=== PATIENT | female | born 1990 | race Caucasian/White ===

== ENCOUNTER 2019-10-25 12:12 | Emergency (ER) | payer OTHER, SELFPAY ==
[2019-10-25 12:26] VITALS: BP 131/99; PULSE 103; RESP 18; TEMP 36.5; O2SAT 98
--- NOTE | 2019-10-25 12:35 | ED.FEMALEGU ---
HPI - Female Genitourinary General Chief complaint: Urogenital-Female Stated complaint: uti Time Seen by Provider: 10/25/19 12:35 Source: patient Limitations: no limitations History of Present Illness HPI Narrative: Floridalma Stapleton is a 29 yo female with a hx of infertility, uti, renal stones, who comes to express care with infertility. Dysuria x 24 hours Related Data Home Medications Medication Instructions Recorded Confirmed metformin mg 10/25/19 Allergies Allergy/AdvReac Type Severity Reaction Status Date / Time No Known Allergies Allergy Unknown Verified 05/25/16 19:02 Review of Systems Review of Systems: Narrative: CONSTITUTIONAL: Denies fever, chills, sweats. EYES: Denies visual changes, redness, discharge. ENT: Denies rhinorrhea, congestion, sore throat, otalgia. CARDIOVASCULAR: Denies chest pain, palpitations, edema. RESPIRATORY: Denies dyspnea, wheezing, cough GASTROINTESTINAL: Denies abdominal pain, nausea, vomiting, diarrhea. GENITOURINARY: Has dysuria, no hematuria, no abnormal discharge SKIN: Denies rash or itching. NEUROLOGIC: Denies numbness, or focal weakness. PSYCHIATRIC: Denies anxiety or depression. [facility] Family History Family History Other No active medical problems Social History Social History Smoking status: Never smoker Alcohol intake: current Comments At time of signature, I agree with nursing past medical, surgical, social and family history. There is no relevant family history pertinent to the presenting complaint. Exam Narrative: Exam Narrative: GENERAL: This is a well-nourished, well-developed patient, in mild distress. HEAD: normocephalic, atraumatic. EYES: Sclera clear/white. Vision is grossly intact. EARS: External ears normal, . Hearing grossly intact. NOSE: External nose normal with nasal discharge, nares without redness, has rhinorrhea. THROAT: Mucous membranes moist, NECK: Neck supple, non-tender CARDIOVASCULAR: Regular rate and rhythm without murmurs, gallops, or rubs. RESPIRATORY: Clear to auscultation. Breath sounds equal bilaterally. No wheezes, rales, or rhonchi. Occ dry cough GASTROINTESTINAL: Abdomen soft, mild suprapubic tenderness SKIN: warm, intact with no suspicious lesions or rash, good texture and turgor. NEURO: awake, alert, and oriented to person, place and time. There were no obvious focal neurologic abnormalities. Steady gait EXTREMITIES: Normal range of motion. BACK: Nontender without deformity Course Course Emergency Course: leuk 1+ in urine given keflex, pyridium Vital Signs Vital signs: Vital Signs Temperature 97.7 F 10/25/19 12:26 Pulse Rate 103 H 10/25/19 12:26 Respiratory Rate 18 10/25/19 12:26 Blood Pressure 131/99 H 10/25/19 12:26 Pulse Oximetry 98 10/25/19 12:26 Temperature 97.7 F 10/25/19 12:26 Pulse Rate 103 H 10/25/19 12:26 Respiratory Rate 18 10/25/19 12:26 Blood Pressure 131/99 H 10/25/19 12:26 Pulse Oximetry 98 10/25/19 12:26 MDM - Female Genitourinary Differential Diagnosis Differential diagnosis: Likely urinary tract infection, cystitis and other Lab Data Labs: Urine Glucose Negative Reference Range: Negative Urine Bilirubin Negative Reference Range: Negative Urine Ketone Negative Reference Range: Negative Urine Specific [place] 1.030 Reference Range:1.001-1.035 Urine Blood Trace Reference Range: Negative * * Urine pH 5.5 Reference Range: 5.0-9.0 Urine Protein Negative Reference Range: Negative Urine Urobilinogen 0.2 Reference Range: 0.2-1.0 Urine Nitrate Negative Reference Range: Negative
== END 2019-10-25 12:58 | disposition home or self-care (01) ==
PROVIDERS: Emergency Provider Nurse Practitioner
DX: R30.0 Dysuria (principal)
CPT/HCPCS: 81003; 87086; 87088; 99213; G0463

== ENCOUNTER 2020-03-20 07:41 | Outpatient (CLI) | payer OTHER, SELFPAY ==
--- NOTE | ~2020-03-20 | CT_ITS ---
EXAMINATION: CT abdomen pelvis wo con EXAM DATE: 03/20/2020 08:09 INDICATION: History of kidney stones. TECHNIQUE: Spiral CT of the abdomen and pelvis was performed without contrast. Axial, coronal and sag ittal images were reviewed. The dose-length product (DLP) for this examination was 236.75 mGy-cm. T he exposure was tailored according to patient size (auto mA exposure control), and iterative reconstr uction (ASIR) was used as additional dose reduction technique. Comparison is made to prior examinatio n from 05/25/2016. FINDINGS: Fluid in the right renal pelvis measures 25 Hounsfield units, proteinaceous, and in the zenaida dder 17 Hounsfield units. There is no nephrolithiasis or hydronephrosis. The uterus and ovaries are unremarkable, no adnexal mass. The liver, spleen, adrenal glands and pancreas are unremarkable. Ga llbladder is unremarkable. No biliary obstruction. There is no retroperitoneal or pelvic lymphadeno cathi. There is small umbilical fat-containing hernia. The appendix is normal. The stomach and small bowel are unremarkable. There is expected amount of c olonic stool. No free intraperitoneal gas. The heart is normal in size. There are no pericardial or pleural effusions. The lung bases are unremarkable. 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 IMPRESSION: 1. Some proteinaceous right renal pelvic and bladder fluid. 2. Previously seen nephrolithiasis no longer present. 3. Small umbilical hernia. 4. T9 segmentation anomaly. Reviewed, dictated and finalized at location A.
== END 2020-03-20 07:42 | disposition home or self-care (01) ==
PROVIDERS: Visit Provider Urology
DX: Z87.442 Personal history of urinary calculi (principal); K42.9 Umbilical hernia without obstruction or gangrene; Q76.49 Other congenital malformations of spine, not associated with scoliosis
CPT/HCPCS: 74176

== ENCOUNTER 2020-03-31 06:49 | Outpatient (CLI) | payer OTHER, SELFPAY ==
--- NOTE | ~2020-03-31 | CT_ITS ---
EXAMINATION: CT abdomen pelvis wo/w con DATE: 03/31/2020 07:26 INDICATION: Dysuria TECHNIQUE: Computed tomography (CT) of the abdomen and pelvis was performed without intravenous contr ast. CT of the abdomen and pelvis was then performed with a total of 130 mL Omnipaque 350 intravenous contrast using a double-bolus technique for simultaneous opacification of the renal parenchyma and r enal collecting system. The dose-length product (DLP) was 1550.71 mGy-cm. Automated exposure control and iterative reconstruction technique were employed. COMPARISON: 03/20/2020, 05/25/2016 FINDINGS: Minimal dependent atelectasis is present in the lung bases. The heart size is normal. A chr onic low-attenuation lesion of the right hepatic lobe measuring 1.3 cm is stable, likely a hemangioma or focal nodular hyperplasia. The spleen, pancreas, gallbladder, and adrenal glands are normal. No s uspicious renal or urothelial lesion is identified. No urinary tract calculi are present. There is ch ronic mild right hydronephrosis with possible UPJ/proximal ureteral stricture. No pathologically enla rged abdominal or pelvic lymph nodes are identified. There is no free intraperitoneal gas or evidence of bowel obstruction. The appendix is normal. There are cysts of the ovaries. A moderate volume of c olonic stool is present. A T9 vertebral body anomaly is again noted. IMPRESSION: 1. Mild right hydroureteronephrosis with possible UPJ/proximal ureteral stricture. No suspicious kavya l or urothelial lesion identified. Reviewed, dictated and finalized at location B. IMPRESSION: 1. Mild right hydroureteronephrosis with possible UPJ/proximal ureteral strictu re. No suspicious renal or urothelial lesion identified.
== END 2020-03-31 06:50 | disposition home or self-care (01) ==
LOC: ANHIMG 06:51
PROVIDERS: Visit Provider Urology
DX: R30.0 Dysuria (principal)
CPT/HCPCS: 74178; Q9967

== ENCOUNTER 2020-04-10 12:31 | Outpatient (CLI) | payer OTHER, SELFPAY ==
--- NOTE | ~2020-04-10 | NM_ITS ---
EXAMINATION: WAN magallanes renal scan DATE: 04/10/2020 14:27 INDICATION: Hydronephrosis TECHNIQUE: 7.7 mCi Tc-99m MAG3 was administered IV. 40 mg furosemide was administered IV immediately afterward. The patient was scanned in the supine position. A posterior abdominal radionuclide angiog jean was obtained. A subsequent time course of static images of the kidneys, ureters, and bladder was obtained. COMPARISON: CT dated dated 03/31/2020 FINDINGS: The posterior abdominal radionuclide angiogram and sequential static images show normal size, positio n, and morphology of the kidneys. Peak renal parenchymal uptake was 3.5 min in left kidney and 3.5 mi n in right kidney (normal peak 3-5 minutes). The relative early renal uptake was 50% on the right an d 50% on the left (<40% is abnormal). No abnormalities of the ureters or bladder are seen. T1/2 for clearance of activity from the left kidney and proximal collecting system was 6 minutes. T1/2 for clearance of activity from the right kidney and proximal collecting system was 13 minutes. Notes on interpretation: T1/2 <10 minutes is normal, 10-15 minutes is low grade obstruction of questi onable clinical significance, 15-20 minutes is partial obstruction that is likely clinically signific ant, >20 minutes is high grade obstruction. Note that false positives may be seen with supine positio allison, dehydration, severely dilated nonobstructed kidney, atonic collecting system, poor renal functi on, and chronic furosemide use. IMPRESSION: 1. Symmetric kidney function. 2. Mildly delayed contrast clearance from the right kidney consistent with low-grade obstruction of questionable clinical significance. Reviewed, dictated and finalized at location A. IMPRESSION: 1. Symmetric kidney function. 2. Mildly delayed contrast clearance from the right kidney consistent with low -grade obstruction of questionable clinical significance.
== END 2020-04-10 12:32 | disposition home or self-care (01) ==
PROVIDERS: Visit Provider Urology
DX: N13.30 Unspecified hydronephrosis (principal)
CPT/HCPCS: 78708; A9562; J1940

== ENCOUNTER 2020-05-12 11:29 | Outpatient (CLI) | payer OTHER, SELFPAY ==
--- NOTE | ~2020-05-12 | XR_ITS ---
EXAMINATION: XR hysterosalpingogram INDICATION: Infertility TECHNIQUE: Hysterosalpingogram was performed by Dr. Rasta Mckeon MD with fluoroscopic guidance. I was present to obtain fluoroscopic images. Fluoroscopy exposure time was 0.3 minutes. The DAP for t his procedure was 2.634 Gycm2. FINDINGS: Parts Identifier radiograph demonstrates an unremarkable pelvis. Fluoroscopic images demonstrate a no rmal appearing endometrial cavity which has been cannulated. Upon injection of contrast, both fallop emmie tubes opacify and are normal in appearance. There is free spillage bilaterally. Uterus is withou t evidence of synechia. IMPRESSION: Patent fallopian tubes. Reviewed, dictated and finalized at location A. IMPRESSION: Patent fallopian tubes.
== END 2020-05-12 11:30 | disposition home or self-care (01) ==
PROVIDERS: PCP Student in an Organized Health Care Education/Training Program; Visit Provider Student in an Organized Health Care Education/Training Program
DX: N97.9 Female infertility, unspecified (principal)
CPT/HCPCS: 58340; 74740

== ENCOUNTER 2021-07-22 10:35 | Emergency (ER) | payer OTHER, SELFPAY ==
[2021-07-22 11:23] VITALS: BP 120/80; PULSE 83; RESP 16; TEMP 36.3; O2SAT 99
--- NOTE | 2021-07-22 12:39 | ED.BACK ---
HPI - Back Pain/Injury General Chief Complaint: Back Pain/Injury Stated Complaint: back pain Time Seen by Provider: 07/22/21 12:35 Source: patient and RN notes reviewed Mode of arrival: ambulatory Limitations: no limitations History of Present Illness HPI Narrative: 31-year-old female presents concern for left flank pain that started approximately 6 days ago. Reports his urinary tract infection and kidney stone. She reports the symptoms are similar to her urinary tract action and not similar to her kidney stones.. She reports fatigue and decreased appetite. She denies any trauma or injury to the back. Reports pain is constant and throbbing, does not come and go and is not made worse by certain movements or positions. Reports taking anti-inflammatories without relief. She denies nausea, vomiting, abdominal pain, fever. MD elicited complaint: back pain Related Data Allergies Allergy/AdvReac Type Severity Reaction Status Date / Time No Known Allergies Allergy Unknown Verified 07/22/21 12:13 Review of Systems Review of Systems: CONSTITUTIONAL: Denies malaise, chills, sweats, or fever. CARDIOVASCULAR: Denies chest pain, palpitations, or edema. RESPIRATORY: Denies cough or dyspnea. GASTROINTESTINAL: Denies abdominal pain, nausea, vomiting, diarrhea, bloody, or mucous stools. Reports decreased appetite GENITOURINARY: Denies dysuria or hematuria. Reports right flank pain SKIN: Denies rash or itching. MUSCULOSKELETAL: Denies generalized back pain, myalgia. NEUROLOGIC: Denies headache. All systems reviewed & are unremarkable except as noted in HPI and below PMFSH Family History Family History Other No active medical problems Social History Social History Smoking status: Never smoker Alcohol intake: current Comments At time of signature, agree with nursing past medical, surgical, social and family history. There is no relevant family history pertinent to the presenting complaint Exam Narrative: GENERAL: Well-appearing, well-nourished, and in no acute distress. HEAD: Normocephalic, atraumatic. EYES: PERRLA and EOMI. NECK: Supple. No lymphadenopathy. CHEST: Clear to auscultation. No respiratory distress. HEART: Regular rate and rhythm. Distal pulses palpable and equal, cap refill <3 seconds ABDOMEN: Soft, nontender, nondistended, normal active bowel sounds, no palpable or pulsatile masses. No CVA tenderness MUSCULOSKELETAL: Normal range of motion and strength in all extremities; 5/5 strength with hip flexion and extension, dorsiflexion and extension, knee flexion and extension, plantar flexion and extension. Normal sensation in dermatomal distributions with sensitivity to light touch and pain. No midline back tenderness to palpation. No paraspinal tenderness. Transfers from lying to sitting to standing. SKIN: Warm, dry, no rash. No ecchymosis, erythema, open wounds to back. NEURO: No focal deficits. Alert and oriented x3. Reflexes intact. Normal gait. PSYCH: Normal mood and affect Course Course Emergency Course: Patient is aware of diagnosis, understands and agrees to treatment plan. Anticipatory guidance given. Patient agrees to follow-up as directed and is aware of reasons to seek care at the emergency department. Portions of this record may have been created with voice recognition software Vital Signs Vital signs: Vital Signs Temperature 97.4 F L 07/22/21 11:23 Pulse Rate 83 07/22/21 11:23 Respiratory Rate 16 07/22/21 11:23 Blood Pressure 120/80 07/22/21 11:23 Pulse Oximetry 99 07/22/21 11:23 Temperature 97.4 F L 07/22/21 11:23 Pulse Rate 83 07/22/21 11:23 Respiratory Rate 16 07/22/21 11:23 Blood Pressure 120/80 07/22/21 11:23 Pulse Oximetry 99 07/22/21 11:23 Reviewed. MDM - Back Pain/Injury MDM Narrative Medical decision making narrative: No risk factors or find
== END 2021-07-22 12:55 | disposition home or self-care (01) ==
PROVIDERS: Emergency Provider Nurse Practitioner
DX: M54.9 Dorsalgia, unspecified (principal); R10.9 Unspecified abdominal pain
CPT/HCPCS: 81003; 87086; 99213; G0463

== ENCOUNTER 2021-08-19 14:33 | Emergency (ER) | payer OTHER, SELFPAY ==
--- NOTE | 2021-08-19 14:37 | ED.URI ---
HPI - URI/Sore Throat General Chief Complaint: Upper Respiratory Infection Stated Complaint: Sinus Infection Time Seen by Provider: 08/19/21 14:40 Source: patient, family, RN notes reviewed and old records reviewed Mode of arrival: ambulatory Limitations: no limitations History of Present Illness HPI Narrative: 31-year-old female presents to the [facility] with complaints of a sinus infection for the last 2 weeks. States she has left-sided sinus pressure both maxillary and frontal that keeps getting worse. Fullness in her ears. Denies fevers. Has tried a home COVID test which she reports is negative Related Data Allergies Allergy/AdvReac Type Severity Reaction Status Date / Time No Known Allergies Allergy Unknown Verified 07/22/21 12:13 Review of Systems Review of Systems: All systems reviewed & are unremarkable except as noted in HPI and below Constitutional: Constitutional: Reports no additional constitutional complaints, Denies chills, Denies fever(s) and Denies headache(s) Eyes: Eyes: Reports no additional eye complaints ENT: Reports as per HPI, Denies vertigo, Denies dizziness, Denies headache(s), Reports nasal congestion and Denies sore throat Comments: Bilateral ear pain Cardiovascular: Cardiovascular: Reports no additional cardiovascular complaints, Denies chest pain, Denies syncope, Denies rapid heart rate and Denies dyspnea Respiratory: Respiratory: Reports no additional respiratory complaints, Denies cough, Denies dyspnea and Denies wheezing Gastrointestinal: Gastrointestinal: Reports no additional gastrointestinal complaints, Denies abdominal pain, Denies diarrhea, Denies nausea and Denies vomiting Musculoskeletal: Musculoskeletal: Reports no additional musculoskeletal complaints and Denies numbness Integumentary/Breasts: Skin/Breast: Reports system reviewed and no additional complaints, except as docu Neurologic: Reports system reviewed and no additional complaints, except as documented, Denies vertigo, Denies dizziness, Denies syncope, Denies headache(s), Denies focal weakness and Denies numbness Psychiatric: Psychiatric: Reports no additional psychiatric complaints Allergic/Immunologic: Allergic/Immunologic: Reports no additional allergic/immunologic complaints and Denies wheezing PMF Family History Family History Other No active medical problems Social History Social History Smoking status: Never smoker Alcohol intake: current Comments At the time of my signature, I reviewed and agree with the nursing past medical, surgical, social, and family history. There is no relevant family history pertinent to the patient complaint. Exam Const: General: cooperative, healthy appearing, no acute distress, well developed and alert Nutritional Appearance: well nourished Orientation/consciousness: patient oriented x3 Limitations: no limitations HENMT: Head: normal to inspection Ears: external ears normal, EAC's normal and TM abnormal with fluid behind the TM bilateral; with no loss of landmarks General nose exam: Normal external nose present and Abnormal mucous membranes and turbinates present boggy on the left and erythematous on the left Face and sinus: normal facial exam Mouth: Yes Normal oral and palatal mucosa present Throat: posterior oropharynx normal, tonsils normal and uvula midline Eyes: Conjunctivae: conjunctivae normal Pupils: Equal, round and reactive pupils present Neck: Neck: normal visual inspection, no lymphadenopathy and no meningeal signs Chest: Chest palpation & inspection: normal inspection of the chest Resp: Effort & Inspection: normal respiratory effort and no use of accessory muscles Auscultation: clear to auscultation bilaterally, no crackles, no rales, no rhonchi and no wheezes Cardio: Rate: regular rate Rhythm: regular rhythm : General: Yes no CVA tenderness Back/Spine/
[2021-08-19 14:44] VITALS: BP 127/73; PULSE 81; RESP 20; TEMP 36.7; O2SAT 100
== END 2021-08-19 14:56 | disposition home or self-care (01) ==
PROVIDERS: Emergency Provider Nurse Practitioner
DX: J01.40 Acute pansinusitis, unspecified (principal)
CPT/HCPCS: 99213; G0463

== ENCOUNTER 2022-05-22 09:44 | Emergency (ER) | payer OTHER, SELFPAY ==
--- NOTE | ~2022-05-22 | CT_ITS ---
EXAMINATION: CT abdomen pelvis wo con DATE: 05/22/2022 12:09 INDICATION: Left flank pain TECHNIQUE: Computed tomography (CT) of the abdomen and pelvis was performed without intravenous contr ast. The dose-length product was 311.42 mGy-cm. . Automated exposure control and iterative reconstruc tion technique were employed. COMPARISON: CT dated 03/31/2020. FINDINGS: Lung bases are unremarkable. Heart size normal. No significant pleural or pericardial effus ion. No significant vascular abnormality. No lymphadenopathy. The liver, spleen, pancreas, adrenal gl ands and kidneys are unremarkable. Gallbladder is present. Normal appendix. No renal/ureteral stones or significant hydronephrosis. Gallbladder is present. Nonobstructive bowel gas pattern. Small fat-co ntaining umbilical hernia. No free air or free fluid. There is a segmentation anomaly at T9. IMPRESSION: 1. No acute abdominal abnormality. Reviewed, dictated and finalized at location A.
[2022-05-22 09:58] VITALS: BP 132/73; PULSE 87; RESP 20; TEMP 36.6; O2SAT 99
--- NOTE | 2022-05-22 11:47 | ED.ABDPAIN ---
HPI - Abdominal Pain General Chief Complaint: Abdominal Pain Stated Complaint: flank pain Time Seen by Provider: 05/22/22 11:00 History of Present Illness HPI narrative: 32-year-old female history of kidney stones presents to the emergency room for evaluation of sudden onset of left flank pain. Patient states the pain radiates into her pelvic area. Denies any dysuria or urinary retention. Denies diarrhea or constipation. Denies fever. States is unable to find a comfortable position and has been nauseated. States she took ibuprofen 2 and half hours ago with no relief of symptoms Related Data Allergies Allergy/AdvReac Type Severity Reaction Status Date / Time No Known Allergies Allergy Unknown Verified 07/22/21 12:13 Review of Systems Review of Systems: CONSTITUTIONAL: Denies fever, chills, or sweats. EYES: Denies visual changes, redness, or discharge. ENT: Denies rhinorrhea, congestion, sore throat, or otalgia. CARDIOVASCULAR: Denies chest pain, palpitations, or edema. RESPIRATORY: Denies cough or dyspnea. GASTROINTESTINAL: Right flank pain GENITOURINARY: Denies dysuria or hematuria. SKIN: Denies rash or itching. MUSCULOSKELETAL: Denies back pain, joint pain, or myalgia. NEUROLOGIC: Denies headache, numbness, dizziness, or weakness. PSYCHIATRIC: Denies anxiety or depression. [facility] Family History Family History Other No active medical problems Social History Social History Smoking status: Never smoker Alcohol intake: current Exam Narrative: GENERAL: Well-appearing, well-nourished, no physical limitations, and in no acute distress. HEAD: Normocephalic, atraumatic. EYES: Conjunctivae normal, PERRLA and EOMI. CHEST: Clear to auscultation. No respiratory distress. No wheezes rales or rhonchi. No tenderness. HEART: Regular rate and rhythm. No murmur heard. Normal peripheral pulses. ABDOMEN: Soft, nontender, nondistended, normal active bowel sounds. BACK: Right CVA tenderness EXTREMITIES: Normal range of motion. No edema. No clubbing or cyanosis SKIN: Warm, dry, no rash. No noted wounds NEURO: No focal deficits. Alert and oriented x3. CRYS. CN's II-XI intact bilaterally, normal gait PSYCH: Cooperative. Normal mood and affect. Course Vital Signs Vital signs: Vital Signs Temperature 36.6 C 05/22/22 09:58 Pulse Rate 87 05/22/22 09:58 Respiratory Rate 20 05/22/22 09:58 Blood Pressure 132/73 05/22/22 09:58 Pulse Oximetry 99 05/22/22 09:58 Oxygen Delivery Room Air 05/22/22 09:58 Temperature 36.6 C 05/22/22 09:58 Pulse Rate 87 05/22/22 09:58 Respiratory Rate 20 05/22/22 09:58 Blood Pressure 132/73 05/22/22 09:58 Pulse Oximetry 99 05/22/22 09:58 Oxygen Delivery Room Air 05/22/22 09:58 MDM - Abdominal Pain MDM Narrative Medical decision making narrative: 32-year-old female presented to the emergency room for evaluation of flank pain. Lab work and UA were unremarkable. CT scan shows a large amount of stone. No signs of kidney stones. Patient likely experiencing constipation. Will encourage patient to take daily MiraLAX and push fluids. Lab Data Result diagrams: 05/22/22 11:56 05/22/22 11:56 Labs: Lab Results 05/22/22 05/22/22 05/22/22 Range/Units 11:56 11:56 11:56 WBC 5.1 (4.5-10.0) K/mm3 RBC 4.73 (4.2-5.4) M/mm3 Hgb 14.2 (12.0-15.0) g/dL Hct 41.7 (37.0-47.0) % MCV 88.2 (80-100) fl MCH 30.0 (26-34) pg MCHC 34.1 (32-36) g/dl RDW 12.6 (11.5-14.5) % Plt Count 305 (150-375) k/mm3 MPV 9.6 (7.4-10.4) fl Immature Gran % (Auto) 0.4 (0-0.5) % Neut % (Auto) 62.8 (45.5-73.1) % Lymph % (Auto) 29.9 (18.3-44.2) % Christian % (Auto) 5.1 (2.6-8.5) % Eos % (Auto) 1.2 (0-4.4) % Baso % (Auto) 0.6 (0.2-1.2) % Lymph # (Auto) 1.53 (0.9-3.2) K/mm3 Christian
[2022-05-22 12:12] LABS: Basophils Percent Auto 0.6 % (0.2-1.2); Eosinophils Absolute Auto 0.1 K/mm3 (0-0.3); Eosinophils Percent Auto 1.2 % (0-4.4); Hematocrit 41.7 % (37.0-47.0); Hemoglobin 14.2 g/dL (12.0-15.0); Immature Granulocyte Absolute 0.02 K/mm3 (0.00-0.031); Immature Granulocyte Percent A 0.4 % (0-0.5); Lymphocytes Absolute Auto 1.53 K/mm3 (0.9-3.2); Lymphocytes Percent Auto 29.9 % (18.3-44.2); Mean Corpuscular HGB Conc 34.1 g/dl (32-36); Mean Corpuscular Volume 88.2 fl (80-100); Mean Platelet Volume 9.6 fl (7.4-10.4); Monocytes Absolute Auto 0.3 K/mm3 (0.1-0.6); Monocytes Percent Auto 5.1 % (2.6-8.5); Neutrophils Absolute Auto 3.2 K/mm3 (1.3-6.7); Neutrophils Percent Auto 62.8 % (45.5-73.1); Platelet Count Result 305 k/mm3 (150-375); Red Blood Count 4.73 M/mm3 (4.2-5.4); Red Cell Distribution Width 12.6 % (11.5-14.5); White Blood Count 5.1 K/mm3 (4.5-10.0)
[2022-05-22] MEDS: SODIUM CHLORIDE 0.9% IV 1,000 ML 999 ML IV CONT (12:19)
[2022-05-22 12:21] LABS: Alanine Aminotransferase 38 U/L (6-35); Albumin Level 4.8 g/dL (3.5-5.1); Alkaline Phosphatase 99 U/L (38-126); Anion Gap 9 mmol/L (8-16); Appearance Urine Clear (Clear); Aspartate Amino Transferase 27 U/L (14-36); Bilirubin Urine Negative (Negative); Bilirubin,Total 0.7 mg/dL (0.2-1.3); Blood Urea Nitrogen 10 mg/dL (7-17); Blood Urine Negative (Negative); Calcium 9.3 mg/dL (8.4-10.2); Carbon Dioxide 28 mmol/L (22-30); Chloride 103 mmol/L (98-107); Color Urine Yellow (Yellow); Estimated CRCL calculation 131 ml/min; Estimated Glomerular Filt Rate > 60; Glucose 94 mg/dL (65-110); Glucose Urine UA Negative (Negative); Ketones Urine Negative (Negative); Leukocyte Esterase Ur Negative LEU/UL (Negative); Nitrate Urine Negative (Negative); Potassium 4.1 mmol/L (3.4-5.0); Protein Urine Negative (Negative); Sodium 140 mmol/L (137-145); Specific Grav Ur 1.015 (1.001-1.035); Urobilinogen Urine 0.2 mg/dL (<2.0)
[2022-05-22 12:26] LABS: Add Urine Microscopic? NO
[2022-05-22 13:52] VITALS: RESP 16
--- NOTE | 2022-05-27 11:23 | PC.NURSE ---
LATE ENTRY This note is being entered to document information to the patient's record. The following information was omitted on [05/22/22], by [Daphney LIEBERMAN]. IV NS stop time [id number]
== END 2022-05-22 13:55 | disposition home or self-care (01) ==
PROVIDERS: Emergency Provider Nurse Practitioner Family; PCP Registered Nurse
DX: R10.9 Unspecified abdominal pain (principal); Z87.442 Personal history of urinary calculi
CPT/HCPCS: 36415; 74176; 80053; 81003; 81025; 85025; 96360; 99284; J7030

== ENCOUNTER 2024-05-03 10:13 | Outpatient (CLI) | payer OTHER, SELFPAY ==
--- NOTE | ~2024-05-03 | CT_ITS ---
EXAMINATION: CT abdomen pelvis w con DATE: 05/03/2024 10:42 INDICATION: Flank pain. TECHNIQUE: Computed tomography (CT) of the abdomen and pelvis was performed with 100 mL Omnipaque 350 intravenous contrast. Automated exposure control and iterative reconstruction technique were employe d. The dose-length product was 487.92 mGy-cm. COMPARISON: CT abdomen and pelvis 05/22/2022, 03/31/2020 FINDINGS: The visualized portions of the lung bases demonstrate minimal atelectasis. No pleural effus ion. The heart size is normal. No pericardial effusion. There is a 12 mm chronic hypodense mass in ri ght hepatic lobe, likely benign. The gallbladder, spleen, pancreas, adrenal glands, and left kidney a re normal. There is mild right hydronephrosis. There is wall thickening of the ascending colon and ce cum and proximal transverse colon with adjacent fat stranding, consistent with colitis. The appendix is normal. There are no pathologically enlarged lymph nodes. There is no free intraperitoneal fluid. There is a segmentation anomaly at T9. IMPRESSION: 1. Colitis involving right colon. 2. Chronic mild right hydronephrosis. Reviewed, dictated and finalized at location A.
[2024-05-03 11:28] LABS: Basophils Percent Auto 0.4 % (0.2-1.2); Hematocrit 39.5 % (37.0-47.0); Hemoglobin 13.6 g/dL (12.0-15.0); Immature Granulocyte Absolute 0.02 K/mm3 (0.00-0.031); Immature Granulocyte Percent A 0.3 % (0-0.5); Lymphocytes Absolute Auto 0.84 K/mm3 (0.9-3.2); Lymphocytes Percent Auto 12.1 % (18.3-44.2); Mean Corpuscular HGB Conc 34.4 g/dl (32-36); Mean Corpuscular Hemoglobin 30.5 pg (26-34); Mean Corpuscular Volume 88.6 fl (80-100); Mean Platelet Volume 9.8 fl (7.4-10.4); Monocytes Absolute Auto 0.4 K/mm3 (0.1-0.6); Monocytes Percent Auto 5.5 % (2.6-8.5); Neutrophils Absolute Auto 5.7 K/mm3 (1.3-6.7); Neutrophils Percent Auto 81.7 % (45.5-73.1); Platelet Count Result 225 k/mm3 (150-375); Red Blood Count 4.46 M/mm3 (4.2-5.4); Red Cell Distribution Width 12.5 % (11.5-14.5)
[2024-05-03 11:31] LABS: Alanine Aminotransferase 69 U/L (6-35); Albumin Level 4.3 g/dL (3.5-5.1); Alkaline Phosphatase 101 U/L (38-126); Anion Gap 11 mmol/L (4-12); Aspartate Amino Transferase 59 U/L (14-36); Bilirubin,Total 1.2 mg/dL (0.2-1.3); Blood Urea Nitrogen 8 mg/dL (7-17); Calcium 8.5 mg/dL (8.4-10.2); Carbon Dioxide 26 mmol/L (22-30); Chloride 99 mmol/L (98-107); Estimated Glomerular Filt Rate > 60; Glucose 93 mg/dL (65-110); Potassium 3.7 mmol/L (3.4-5.0); Sodium 136 mmol/L (137-145)
== END 2024-05-03 10:14 | disposition home or self-care (01) ==
LOC: ANHIMG 10:17
PROVIDERS: PCP Registered Nurse; Visit Provider Registered Nurse
DX: R10.9 Unspecified abdominal pain (principal); R50.9 Fever, unspecified; R10.2 Pelvic and perineal pain; R53.83 Other fatigue
CPT/HCPCS: 36415; 74177; 80053; 85025; Q9967

== ENCOUNTER 2024-05-22 10:21 | Outpatient (CLI) | payer OTHER, SELFPAY ==
[2024-05-22 11:23] LABS: Alanine Aminotransferase 93 U/L (6-35); Albumin Level 4.7 g/dL (3.5-5.1); Alkaline Phosphatase 77 U/L (38-126); Aspartate Amino Transferase 52 U/L (14-36); Bilirubin,Total 0.8 mg/dL (0.2-1.3)
[2024-05-22 12:16] LABS: Hepatitis B Surface Antigen Negative (Negative)
[2024-05-22 12:22] LABS: HAV RESULT Negative (Negative); Hepatitis B Core IgM Result Negative (Negative)
[2024-05-22 12:34] LABS: Hepatitis C Virus Antibody Negative (Negative)
== END 2024-05-22 10:22 | disposition home or self-care (01) ==
LOC: ANHLAB 10:24
PROVIDERS: PCP Registered Nurse; Visit Provider Nurse Practitioner
DX: R79.89 Other specified abnormal findings of blood chemistry (principal)
CPT/HCPCS: 36415; 80074; 80076

== ENCOUNTER 2024-05-23 15:00 | Outpatient (CLI) | payer OTHER, SELFPAY ==
[2024-05-23 15:39] LABS: INR 0.9; Prothrombin Time 12.7 Seconds (11.1-14.7)
[2024-05-23 15:57] LABS: Iron 66 ug/dL (37-170)
[2024-05-23 16:07] LABS: Percent Iron Saturation 22 % (20-50)
[2024-05-23 18:27] LABS: Hepatitis B Surface Anti Res Positive
[2024-05-24 11:33] LABS: GGT 27 U/L (3-50)
[2024-05-24 12:14] LABS: Alpha-1-Antitrypsin, QN 159 mg/dL (83-199); Ceruloplasmin 28 mg/dL (14-48)
[2024-05-24 14:03] LABS: Hepatitis A Antibody Total REACTIVE (NON-REACTIVE)
[2024-05-28 23:58] LABS: ALT 74 U/L (6-29); Alpha-2-Macroglobulin 163 mg/dL (106-279); Apolipoprotein A1 159 mg/dL (101-198); Fibrosis Stage F0; GGT 28 U/L (3-50); Haptoglobin 68 mg/dL (43-212); Necroinflammat Act Grade A1-A2; Reference ID 5186378; Total Bilirubin 0.5 mg/dL (0.2-1.2)
[2024-05-29 10:43] LABS: LKM 1 Antibody <=20.0 U (<=20.0)
[2024-05-29 21:33] LABS: Actin Antibody (IgG) <20 U (<20)
== END 2024-05-23 15:01 | disposition home or self-care (01) ==
LOC: ANHLAB 15:01
PROVIDERS: PCP Registered Nurse; Visit Provider Nurse Practitioner
DX: R79.89 Other specified abnormal findings of blood chemistry (principal)
CPT/HCPCS: 36415; 81596; 82103; 82390; 82728; 82977; 83520; 83540; 83550; 85610; 86038; 86039; 86364; 86376; 86706; 86708

== ENCOUNTER 2024-06-10 07:54 | Outpatient (CLI) | payer OTHER, SELFPAY ==
--- NOTE | ~2024-06-10 | US_ITS ---
EXAMINATION: US abdomen duplex complete DATE: 06/10/2024 10:05 INDICATION: Abnormal liver function tests. TECHNIQUE: Multiple grayscale and Doppler ultrasound images of the abdomen were obtained. COMPARISON: CT abdomen and pelvis 05/03/2024 FINDINGS: The visualized portions of the head and body of the pancreas are normal. There is a 1.5 cm hyperechoic mass in right hepatic lobe, likely a hemangioma. The gallbladder is normal in size. No ga llstones or gallbladder wall thickening. There is no sonographic Rand's sign. The common duct is no rmal and measures 6 mm. Abdominal aorta is normal in caliber. Inferior vena cava is normal. The kidne ys are normal in size. The spleen is normal in size. The proper hepatic artery demonstrates normal fl ow. The left, middle, and right hepatic veins are patent. There is normal flow in main portal vein an d left portal vein. IMPRESSION: 1. No etiology for abnormal liver function tests. Reviewed, dictated and finalized at location A. E REPAIRER
== END 2024-06-10 07:55 | disposition home or self-care (01) ==
PROVIDERS: PCP Registered Nurse; Visit Provider Nurse Practitioner
DX: R79.89 Other specified abnormal findings of blood chemistry (principal)
CPT/HCPCS: 93978

== ENCOUNTER 2024-06-18 01:26 | Day surgery (SDC) | payer OTHER, SELFPAY ==
[2024-05-31 14:05] VITALS: BMI 24.7
[2024-06-18 06:15] VITALS: BP 114/62; PULSE 89; RESP 16; TEMP 36.3; O2SAT 99; BMI 25.4
[2024-06-18] MEDS: LACTATED RINGERS 1,000 ML 150 ML IV CONT (07:00)
[2024-06-18 08:08] LABS: Beta HCG Quantitative < 2.39 mIU/ML
--- NOTE | 2024-06-18 08:16 | P.PNAN_ITS ---
Anes - Initial Pre Proc Eval Procedure: Operation Date: 06/18/24 07:30 Proposed Procedures p Colonoscopy - Naman Mi MD Date/Time: 06/18/24 08:16 Surgeon: Naman Mi MD Pre Op Diagnosis: Colitis Patient Data Age: 34 Gender: F Height: 1.7 m Weight: 73.9 kg Last Vital Signs Temp 97.4 F L 06/18/24 06:15 Pulse 89 06/18/24 06:15 Resp 16 06/18/24 06:15 BP 114/62 06/18/24 06:15 Pulse Ox 99 06/18/24 06:15 O2 Del Method Room Air 06/18/24 06:15 Allergies Allergy/AdvReac Type Severity Reaction Status Date / Time No Known Allergies Allergy Unknown Verified 06/18/24 06:19 Home Medications Medication Instructions Recorded Confirmed Type bupropion HCl 300 mg 24 hr tablet, 300 mg PO QAM 05/22/24 06/18/24 History extended release Laboratory Tests 06/18/24 07:24 Beta HCG, Quant < 2.39 mIU/ML Patient hx anesthesia problems: none Family hx anesthesia problems: none Results Review: All pre-operative results and documents have been reviewed as part of the pre- operative evaluation. [facility] Family History Family History Other No active medical problems Social History Social History Smoking status: Never smoker Alcohol intake: never Substance use: never Substance use type: does not use Living arrangements: with family Spiritual care concerns: No Anes - Eval Final PreProcedure Day of Procedure 06/18/24 08:16 Patient weight: normal Heart: regular rate and rhythm Lungs: clear to auscultation Airway: Mallampati scale class II Neurological: alert and oriented Last oral intake: >/= 8 hours ASA classification: II Emergent: no Anesthetic plan: proceed Anesthesia type and monitoring: general GIVS and standard monitoring Results Review: All pre-operative results and documents have been reviewed as part of the pre- operative evaluation. Informed Consent: The patient's anesthetic plan and its attendant risks and benefits were discussed with the patient/family/POA. Questions were solicited and answers provided to the satisfaction of the patient/family/POA.
--- NOTE | 2024-06-18 08:30 | PM.IMHP ---
H&P: HPI History of Present Illness Date/Time: 06/18/24 08:30 Chief Complaint: History of recent colitis Narrative: approximately 1 month ago, the patient experienced a severe abdominal pain episode associated with fever and an abnormal imaging of her colon on CT scan. This was suspicious for colitis, however the picture resolved with antibiotics. At the present time, patient is completely asymptomatic from a GI standpoint and she is here for colonoscopy refer to rule out colitis. Review of Systems Review of Systems: All systems reviewed & are unremarkable except as noted in HPI and below PMFSH Family History Family History Other No active medical problems Social History Social History Smoking status: Never smoker Alcohol intake: never Substance use: never Substance use type: does not use Living arrangements: with family Spiritual care concerns: No Meds Home Medications and Allergies Home Medications Medication Instructions Recorded Confirmed Type bupropion HCl 300 mg 24 hr tablet, 300 mg PO QAM 05/22/24 06/18/24 History extended release Allergies Allergy/AdvReac Type Severity Reaction Status Date / Time No Known Allergies Allergy Unknown Verified 06/18/24 06:19 Vital Signs Vital Signs - 24 hr 06/18/24 06:15 Temperature 97.4 F L Pulse Rate 89 Respiratory Rate 16 Blood Pressure 114/62 Pulse Oximetry 99 Oxygen Delivery Room Air Exam Const: General: cooperative and healthy appearing Resp: Effort & Inspection: normal respiratory effort and able to speak in complete sentences Auscultation: clear to auscultation bilaterally Cardio: Rate: regular rate Rhythm: regular rhythm GI: Inspection: normal to inspection GI Palp: No No hepatosplenomegaly present Auscultation: normal bowel sounds Rectal Exam: deferred Skin: General skin exam: normal color Psych: Appearance: grossly normal Mental Status: mental status grossly normal Assessment and Plan Assessment and plan (1) Colitis: Code(s): K52.9 - Noninfective gastroenteritis and colitis, unspecified Status: Acute Plan The patient is deemed a good candidate for the procedure. Consent signed. Will proceed.
[2024-06-18 08:49] VITALS: BP 90/57; PULSE 86; RESP 22; O2SAT 100
[2024-06-18 08:59] VITALS: BP 92/60; PULSE 84; RESP 23; O2SAT 100
== END 2024-06-18 09:16 | disposition home or self-care (01) ==
PROVIDERS: Anesthesiology; PCP Registered Nurse; Referring Provider Nurse Practitioner; Visit Provider Internal Medicine Gastroenterology
PROC: 0DJD8ZZ Inspection of Lower Intestinal Tract, Via Natural or Artificial Opening Endoscopic (ICD-10-PCS; CPT 45378; principal; 2024-06-18 07:30)
DX: Z09 Encounter for follow-up examination after completed treatment for conditions other than malignant neoplasm (principal); K52.9 Noninfective gastroenteritis and colitis, unspecified
CPT/HCPCS: 45378; 36415; 84702; J2003; J2704; J7120

== ENCOUNTER 2024-07-30 08:52 | Outpatient (CLI) | payer OTHER, SELFPAY ==
[2024-07-30 09:30] LABS: Rheumatoid Factor < 12.0 IU/ML (<12)
[2024-08-01 03:48] LABS: SS-A <1.0 NEG AI (<1.0 NEG); SS-B <1.0 NEG AI (<1.0 NEG)
--- OUTSIDE RECORDS SUMMARY | 2024-08-06 00:46 | XMS_ITS | Encounter Summary ---
Author Organization [facility] Address [address] [place] [address]. [place], [place] [address] [place] [address] Care Team Providers Care Web Content Developer Name Role Phone Stephanie Pearson Primary Care Provider [phone] Reason for Referral * Consultation (Routine) - Authorized Specialty Diagnoses / Procedures Referred By Contac t Referred To Contact GASTROENTEROLOGY Diagnoses Colitis Stephanie Pearson APNP [address] [place] [address] Phone: tel: fax: Gabe Land MD [address] [facility] [address] [place] [id number] Phone: tel: fax: Referral ID Status Reason Start Date Expiration Date V isits Requested Visits Authorized [id number] Authorized 05/03/2024 06/03/[address] Renteria Reason for Visit * Reason Onset Date Comments Question 05/03/2024 Encounter Details Date Type Department Care Team (Late st Contact Info) Description 05/03/2024 Telephone [facility] Family & Internal Medicine - [place] [address] [place] [address] Stephanie Pearson APNP [address] [place] [address] Question Social History Tobacco Use Types Packs/Day Years Used Date Smoking Tobacco: Never Smokeless Tobacco: Never Alcohol Use Standard Drinks/Week Comments Not Currently 1.7 (1 standard drink = 0.6 oz p ure alcohol) once a month, wine PHQ-2 Answer Date Recorded Patient Health Questionnaire-2 Score 0 07/28/2023 Comments No Sex and Gender Information Value Date Recorded Sex Assigned at Not on file Legal Sex Female 1:24 PM UNCLAIMED PROPERTY MANAGER Gender Identity Female 08/05/2021 12:06 PM UNCLAIMED PROPERTY MANAGER Sexual Orientation Straight 08/05/2021 12 :06 PM UNCLAIMED PROPERTY MANAGER documented as of this encounter Progress Notes * JOEL Wiggins - 05/03/2024 1:05 PM CDT Spoke with pt on phone regarding CT results Abx sent over Time given for questions Gi referral placed Call pt on Monday to check on her She is aware of danger signs and when to seek emergency care. Can you call over to [facility] for lab results and call and find out from pt when LMP was and remindher to hold her MVI while taking abx. documented in this encounter Plan of Treatment Scheduled Referrals Name Type Priority Associated Diagnoses Orde r Schedule Ambulatory referral to Gastroenterology (OTHER) Referral Routine Colitis Ordered: 05/03/2024 documented as of this encounter Visit Diagnoses Diagnosis Colitis- Primary Other and unspecified noninfectious gastroenteritis and colitis documented in this encounter Additional Health Concerns Assessment Noted Time PHQ-9 Depression Total Score: 9 06/22/20 22 11:43 AM UNCLAIMED PROPERTY MANAGER documented as of this encounter Care Teams Web Content Developer Relationship Specialty Start Date End Date Stephanie Pearson APNP [address] [place] [address] PCP - General NURSE PRACTITIONER 01/07/22 documented as of this encounter
--- OUTSIDE RECORDS SUMMARY | 2024-08-06 00:46 | XMS_ITS | Encounter Summary ---
Author Organization [facility] Address [address] [place] [address]. [place] [id number] [place] [address] Care Team Providers Care Teenage Program Director Name Role Phone Stephanie Pearson Primary Care Provider [phone] Reason for Visit * Reason Comments Anxiety Encounter Details Date Type Department Care Team ([facility] st Contact Info) Description 06/22/2022 10:40 AM SOFTWARE DATABASE ARCHITECT Office Visit [facility] Medical [facility] Family & Internal Medicine [facility] [address] [place] [address] Stephanie Pearson APNP [address] [place], [place] [phone] Anxiety Social History Tobacco Use Types Packs/Day Years Used Date Smoking Tobacco: Never Smokeless Tobacco: Never Alcohol Use Standard Drinks/Week Comments Yes 0 (1 standard drink = 0.6 oz pur e alcohol) once a month, wine PHQ-2 Answer Date Recorded PHQ-2 Score - If the patient scores above 3, please move on to questions 3-9 0 06/22/2022 Comments Unknown Sex and Gender Information Value Date Recorded Sex Assigned at Not on file Legal Sex Female 1:24 PM SOFTWARE DATABASE ARCHITECT Gender Identity Female 08/05/2021 12:06 PM SOFTWARE DATABASE ARCHITECT Sexual Orientation Straight 08/05/2021 12 :06 PM SOFTWARE DATABASE ARCHITECT COVID-19 Exposure Response Date Recorded In the last 10 days, have yo u been in contact with someone who was confirmed or suspected to have Coronavirus/COVID-19? No / Unsure 06/22/2022 10:20 AM SOFTWARE DATABASE ARCHITECT documented as of this encounter Last Filed Vital Signs Vital Sign Reading Time Taken Comments Blood Pressure 122/83 06/22/2022 10:25 AM SOFTWARE DATABASE ARCHITECT Pulse 79 06/22/2022 10:25 AM SOFTWARE DATABASE ARCHITECT Temperature 36.8 ??C (98.3 ??F) 06/22/2022 10:[address] Respiratory Rate 12 06/22/2022 10:25 AM SOFTWARE DATABASE ARCHITECT Oxygen Saturation 98% 06/22/2022 10:25 AM SOFTWARE DATABASE ARCHITECT Inhaled Oxygen Concentration - - Weight 88.5 kg (195 lb) 06/22/2022 10:25 AM SOFTWARE DATABASE ARCHITECT Height 170.2 cm (5' 7 ) 06/22/2022 10:25 AM SOFTWARE DATABASE ARCHITECT Body Mass Index 30.54 06/22/2022 10:25 AM SOFTWARE DATABASE ARCHITECT documented in this encounter Progress Notes * JOEL Wiggins - 06/22/2022 10:40 AM CST Images from the original note were not included. [facility] FAMILY AND INTERNAL MEDICINE OFFICE VISIT Reason for Visit: Anxiety History of Present Illness: 32 yo female here today to discuss her anxiety. She feels she has always had issues with anxiety. Feels she has never had to be medicated. She states she has been lashing out at her and childand this is not typical for her. She has had issues sleeping, both falling and staying asleep. She feels she had mini panic attacks. She notes she has a stressful job but no other major life event. Not currently seeing a counselor and has never been on meds. Does not wish to start on meds that would incidentally cause weight gain. LMP was 04/23/2022--just took a home test at home and was negative. She has PCOS and doesnot have regular periods. ROS: Review of Systems Constitutional: Negative for chills, fever and malaise/fatigue. Respiratory: Negative for cough and shortness of breath. Cardiovascular: Negative for chest pain and palpitations. Gastrointestinal: Negative for abdominal pain, diarrhea, nausea and vomiting. Neurological: Negative for dizziness and headaches. Psychiatric/Behavioral: Negative for depression and suicidal ideas. The patient is nervous/anxious and has insomnia. Medications: Current Outpatient Medications: ??? buPROPion XL (WELLBUTRIN XL) 150 MG 24 hr tablet, Take 1 tablet (150 mg total) by mouth daily.,Disp: 30 tablet, Rfl: 1 ??? famotidine 20 MG tablet, Take 1 tablet (20 mg total) by mouth 2 (two) times daily., Disp: 180 tablet, Rfl: 3 ??? multi vitamin/minerals (THERA-M ENHANCED) tablet, Take 1 tablet by mouth daily., Disp: , Rfl: ??? omeprazole 20 MG capsule, Take 1 capsule (20 mg total) by mouth daily., Disp: 30 capsule, Rfl: 0 Allergies: No Known Allergies Medical History: Past Medical History: Diagnosis Date ??? Anxiety 06/22/2022 ??? Kidney stones history of kidney stones ??? PCOS (polycystic ovarian syndrome) Surgical History: Past Surgical History: Procedure Laterality Date ??? LITHOTRIPSY Left 03/24/2003 Social History: Social History Socioeconomic History ??? Marital status: Tobacco Use ??? Smoking status: Never ??? Smokeless tobacco: Never Vaping Use ??? Vaping Use: Never used Substance and Sexual Activity ??? Alcohol use: Yes Comment: once a month, wine ??? Drug use: Never ??? Sexual activity: Yes Partners: Male control/protection: None Family History: Family History Problem Relation Name Age of Onset ??? Diabetes Mother ??? Polycystic ovary syndrome Mother ??? Hypothyroidism Mother ??? No Known Problems Father ??? No Known Problems Sister ??? Asthma Brother ??? ADD / ADHD Son ??? Heart Disease Maternal Grandmother ??? CHF Maternal Grandfather ??? Kidney Disease Maternal Grandfather ??? Other (overactive bladder) Paternal Grandmother ??? Parkinson's Disease Paternal Grandmother ??? Cancer Other PE: Physical Exam Vitals and nursing note reviewed. HENT: Head: Normocephalic and atraumatic. Eyes: General: No scleral icterus. Conjunctiva/sclera: Conjunctivae normal. Neck: Trachea: No tracheal deviation. Cardiovascular: Rate and Rhythm: Normal rate and regular rhythm. Heart sounds: Normal heart sounds. Pulmonary: Effort: Pulmonary effort is normal. No respiratory distress. Breath sounds: Normal breath sounds. No stridor. No wheezing. Musculoskeletal: General: No deformity. Normal range of motion. Cervical back: Normal range of motion and neck supple. Skin: General: Skin is warm and dry. Findings: No erythema. Neurological: Mental Status: She is alert and oriented to person, place, and time. Gait: Gait is intact. Psychiatric: Mood and Affect: Mood and affect normal. Filed Vitals: 06/22/22 1025 BP: 122/83 Pulse: 79 Resp: 12 Temp: 98.3 ??F (36.8 ??C) SpO2: 98% Weight: 88.5 kg (195 lb) Height: 5' 7 (1.702 m) Labs: Labs Reviewed Diagnoses/Impression: 1. Anxiety buPROPion XL (WELLBUTRIN XL) 150 MG 24 hr tablet Recommendations and Plan: 1. Anxiety - buPROPion XL (WELLBUTRIN XL) 150 MG 24 hr tablet; Take 1 tablet (150 mg total) by mouth daily. Dispense: 30 tablet; Refill: 1 Patient denies any HI/SI. PHQ-9 is positive today. We discussed treatment options today. Patient opted to try bupropion. We discussed the risk, benefits and side effects. Would like to see pt back inone month. Orders Placed This Encounter ??? buPROPion XL (WELLBUTRIN XL) 150 MG 24 hr tablet Cannot display discharge medications since this is not an admission. PCP: JOEL Wiggins 06/22/2022 WARE DATABASE ARCHITECT documented in this encounter Plan of Treatment Not on file documented as of this encounter Visit Diagnoses Diagnosis Anxiety- Primary Anxiety state, unspecified documented in this encounter Additional Health Concerns Assessment Noted Time PHQ-9 Depression Total Score: 9 06/22/20 22 11:43 AM SOFTWARE DATABASE ARCHITECT documented as of this encounter Care Teams Teenage Program Director Relationship Specialty Start Date End Date Stephanie Pearson APNP [address] [place] [address] PCP - General NURSE PRACTITIONER 01/07/22 documented as of this encounter
--- OUTSIDE RECORDS SUMMARY | 2024-08-06 00:46 | XMS_ITS | Encounter Summary ---
Author Organization [facility] Address [address] [place] [address]. [place] [address] Care Team Providers Care Immigration Investigator Name Role Phone Stephanie Pearson Dunia MALDONADO Primary Care Provider [phone] Reason for Visit * Reason Comments Procedure (SCAN) Encounter Details Date Type Department Care Team ([facility] Contact Info) Description 04/11/2024 Scan HEALTH INFO [facility] Scanned, Doc Med Group Procedure (SCAN) Social History Tobacco Use Types Packs/Day Years [...] on file Legal Sex Female 1:24 PM SHINGLE BOLT CUTTER Gender Identity Female 08/05/2021 12:06 PM SHINGLE BOLT CUTTER Sexual Orientation Straight 08/05/2021 12 :06 PM SHINGLE BOLT CUTTER documented as of this encounter Plan of Treatment Not on file documented as of this encounter Procedures Procedure Name Priority Date/Time Associated Diagnosis Comments PROCEDURE GENERIC (SCAN ORDER) 04/11/2024 documented in this encounter Results * PROCEDURE GENERIC (SCAN ORDER) (04/11/2024) 04/11/2024 us Doc Med Group Scanned SCANNING Final Resu lt documented in this encounter Visit Diagnoses Not on filedocumented in this encounter Additional Health Concerns Assessment Noted Time PHQ-9 Depression Total Score: 9 06/22/20 22 11:43 AM SHINGLE BOLT CUTTER documented as of this encounter Care Teams Immigration Investigator Relationship Specialty Start Date End Date Stephanie Pearson APNP [address] [place], [place] [id number] PCP - General NURSE PRACTITIONER 01/07/22 documented as of this encounter
--- OUTSIDE RECORDS SUMMARY | 2024-08-06 00:46 | XMS_ITS | Encounter Summary ---
Author Organization [facility] Address [address] [place] [address]. [place], [place] [id number] [place] [address] Care Team Providers Care Dynamite Packing Machine Operator Name Role Phone Stephanie Pearson Primary Care Provider [phone] Encounter Details Date Type Department Care Team (Latest Contact Info) Description 07/28/2023 - 07/28/2023 11:59 PM NEWS CAMERAMAN Hospital Encounter [facility] [address] [place] [address] Stephanie Pearson APNP [address] [place] [address] Discharge Disposition: Home or Self Care (Routine Discharge) Social History Tobacco Use Types Packs/Day Years [...] on file Legal Sex Female 1:24 PM NEWS CAMERAMAN Gender Identity Female 08/05/2021 12:06 PM NEWS CAMERAMAN Sexual Orientation Straight 08/05/2021 12 :06 PM NEWS CAMERAMAN documented as of this encounter Medications at Time of Discharge multi vitamin/minerals (THERA-M ENHANCED) tablet Take 1 tablet by mouth daily. progesterone (PROMETRIUM) 200 MG capsule Take 1 capsule (200 mg total) by mouth daily. 05/06/2023 buPROPion XL (WELLBUTRIN XL) 300 MG 24 hr tabletIndication s:Anxiety Take 1 tablet (300 mg total) by mouth every morning. Patient must be seen for further refills 90 tablet 1 07/14/2023 03/29/2024 busPIRone (BUSPAR) 10 MG tabletIndication s:Anxiety Take one half tablet twice daily for one week, then increase to one tablet twice daily. 60 tablet 1 07/28/2023 03/29/2024 Phentermine HCl 30 MG Cap Take 1 capsule by mouth daily. 07/08/2023 03/29/2024 documented as of this encounter Plan of Treatment Not on file documented as of this encounter Visit Diagnoses Not on filedocumented in this encounter Additional Health Concerns Assessment Noted Time PHQ-9 Depression Total Score: 9 06/22/20 22 11:43 AM NEWS CAMERAMAN documented as of this encounter Care Teams Dynamite Packing Machine Operator Relationship Specialty Start Date End Date Stephanie Pearson APNP [address] [place] [address] PCP - General NURSE PRACTITIONER 01/07/22 documented as of this encounter
--- OUTSIDE RECORDS SUMMARY | 2024-08-06 00:46 | XMS_ITS | Referral Summary ---
Author Organization [facility] Address [address] [place] [address] Care Team Providers Care Visitor Services Information Assistant Name Role Phone Morenita Horton MD Primary Care Provider [phone] Source Comments [facility],non-[facility] Affiliates and Associated Physician Practices is amultiple site organization consisting of ambulatory clinics and hospital sitesin [place], [place], [place] and [place]. This disclosure is being madepursuant to the Care Everywhere program and may not contain all information available regarding this patient. Last updated 18.[facility] Active Problems Problem Noted Date Diagnosed Date Hemangioma of intra-abdominal structures 015 Social History Tobacco Use Types Packs/Day Years Used Date Smoking Tobacco: Never Smokeless Tobacco: Never Alcohol Use Standard Drinks/Week Comments Yes 0 (1 standard drink = 0.6 oz pur e alcohol) Sex and Gender Information Value Date Recorded Sex Assigned at Not on file Gender Identity Not on file Sexual Orientation Not on file Last Filed Vital Signs Vital Sign Reading Time Taken Comments Blood Pressure 112/61 06/04/2015 1:22 PM CLIENT SERVICE AND CONSULTING MANAGER Pulse 90 06/04/2015 1:22 PM CLIENT SERVICE AND CONSULTING MANAGER Temperature 36.9 ??C (98.5 ??F) 06/04/2015 1:22 PM CS T Respiratory Rate 18 06/04/2015 1:22 PM CLIENT SERVICE AND CONSULTING MANAGER Oxygen Saturation - - Inhaled Oxygen Concentration - - Weight 74.8 kg (164 lb 14.4 oz) 06/04/2015 1:22 PM CLIENT SERVICE AND CONSULTING MANAGER Height 172.7 cm (5' 8 ) 06/04/2015 1:22 PM CLIENT SERVICE AND CONSULTING MANAGER Body Mass Index 25.07 06/04/2015 1:22 PM CLIENT SERVICE AND CONSULTING MANAGER Plan of Treatment Not on file Care Teams Visitor Services Information Assistant Relationship Specialty Start Date End Date Morenita Horton MD [address] [place] [address] PCP - General 03/06/15
--- OUTSIDE RECORDS SUMMARY | 2024-08-06 00:46 | XMS_ITS | Encounter Summary ---
Author Organization [facility] Address [address] [place] [address]. [place], [place] [address] [place] [address] Care Team Providers Care Rivet Driver Name Role Phone Stephanie Pearson Primary Care Provider [phone] Encounter Details Date Type Department Care Team (Latest Contact Info) Description 05/03/2024 Travel Social History Tobacco Use Types Packs/Day Years [...] on file Legal Sex Female 1:24 PM ENGINEERING EQUIPMENT OPERATOR Gender Identity Female 08/05/2021 12:06 PM ENGINEERING EQUIPMENT OPERATOR Sexual Orientation Straight 08/05/2021 12 :06 PM ENGINEERING EQUIPMENT OPERATOR documented as of this encounter Plan of Treatment Not on file documented as of this encounter Visit Diagnoses Not on filedocumented in this encounter Additional Health Concerns Assessment Noted Time PHQ-9 Depression Total Score: 9 06/22/20 22 11:43 AM ENGINEERING EQUIPMENT OPERATOR documented as of this encounter Care Teams Rivet Driver Relationship Specialty Start Date End Date Stephanie Pearson APNP [address] [place] [id number] PCP - General NURSE PRACTITIONER 01/07/22 documented as of this encounter
--- OUTSIDE RECORDS SUMMARY | 2024-08-06 00:46 | XMS_ITS | Encounter Summary ---
Author Organization [facility] Address [address] [place] [address]. [place], [place] [address] [place] [address] Care Team Providers Care And Rescue Fire Fighter Crash Fire Name Role Phone Stephanie Pearson Primary Care Provider [phone] Encounter Details Date Type Department Care Team (Latest Contact Info) Description 01/07/2022 Travel Social History Tobacco Use Types Packs/Day Years Used Date Smoking Tobacco: Never Smokeless Tobacco: Never Alcohol Use Standard Drinks/Week Comments Yes 0 (1 standard drink = 0.6 oz pur e alcohol) once a month, wine PHQ-2 Answer Date Recorded PHQ-2 Score - If the patient scores above 3, please move on to questions 3-9 0 01/07/2022 Comments Unknown Sex and Gender Information Value Date Recorded Sex Assigned at Not on file Legal Sex Female 1:24 PM PRESCHOOL TEACHER ASSISTANT Gender Identity Female 08/05/2021 12:06 PM PRESCHOOL TEACHER ASSISTANT Sexual Orientation Straight 08/05/2021 12 :06 PM PRESCHOOL TEACHER ASSISTANT COVID-19 Exposure Response Date Recorded In the last 10 days, have yo u been in contact with someone who was confirmed or suspected to have Coronavirus/COVID-19? No / Unsure 01/07/2022 7:55 AM CDT documented as of this encounter Plan of Treatment Not on file documented as of this encounter Visit Diagnoses Not on filedocumented in this encounter Additional Health Concerns Assessment Noted Time PHQ-9 Depression Total Score: 3 01/08/20 22 9:13 AM CDT documented as of this encounter Care Teams And Rescue Fire Fighter Crash Fire Relationship Specialty Start Date End Date Stephanie Pearson APNP [address] [place] [address] PCP - General NURSE PRACTITIONER 01/07/22 documented as of this encounter
--- OUTSIDE RECORDS SUMMARY | 2024-08-06 00:46 | XMS_ITS | Encounter Summary ---
Author Organization [facility] Address [address] [place] [address]. [place], [place] [id number] [place] [address] Care Team Providers Care Customer Service Representative Teacher Name Role Phone Stephanie Pearson Primary Care Provider [phone] Reason for Referral * Consultation (Routine) - Authorized Specialty Diagnoses / Procedures Referred By Luz cho Referred To Contact DERMATOLOGY Diagnoses Hx of squamous cell carcinoma excision Procedures OFFICE/OUTPATIENT NEW LOW MDM 30-44 MINUTES OFFICE/OUTPT VISIT,NEW,LEVL IV OFFICE/OUTPT VISIT,NEW,LEVL V OFFICE/OUTPT VISIT,EST,LEVL III OFFICE/OUTPT VISIT,EST,LEVL IV OFFICE/OUTPT VISIT,EST,LEVL V Stephanie Pearson APNP [address] [place] [address] Phone: tel: fax: [facility] [address] [place] [phone] Phone: tel: fax: Referral ID Status Reason Start Date Expiration Date Visits Requested Visits Authorized [id number] Authorized Specialty Services 03/29/2024 04/28/2025 99 99 Reason for Visit * Reason Comments Anxiety Encounter Details Date Type Department Care Team (Late st Contact Info) Description 03/29/2024 10:00 AM CDT Office Visit [facility] Family & Internal Medicine [address] [phone] Stephanie Pearson APNP [address] [place] [address] Anxiety Social History Tobacco Use Types Packs/Day [...] on file Legal Sex Female 1:24 PM ENGINE MECHANIC Gender Identity Female 08/05/2021 12:06 PM ENGINE MECHANIC Sexual Orientation Straight 08/05/2021 12 :06 PM ENGINE MECHANIC documented as of this encounter Last Filed Vital Signs Vital Sign Reading Time Taken Comments Blood Pressure 110/64 03/29/2024 9:57 AM CDT Pulse 79 03/29/2024 9:57 AM CDT Temperature 36.7 ??C (98.1 ??F) 03/29/2024 9:57 AM CD T Respiratory Rate 16 03/29/2024 9:57 AM CDT Oxygen Saturation 99% 03/29/2024 9:57 AM CDT Inhaled Oxygen Concentration - - Weight 74 kg (163 lb 1.6 oz) 03/29/2024 9:57 AM CDT Height 170.2 cm (5' 7 ) 03/29/2024 9:57 AM CDT Body Mass Index 25.55 03/29/2024 9:57 AM CDT documented in this encounter Progress Notes * JOEL Wiggins - 03/29/2024 10:00 AM CDT Images from the original note were not included. [facility] FAMILY AND INTERNAL MEDICINE OFFICE VISIT Reason for Visit: Anxiety History of Present Illness: 34 yo female here today to follow up with he anxiety. She is currently on bupropion 300 mg once daily. She is tolerating this dose well with no bothersome side effects. She feels that her anxiety is controlled and this medication is working well for her. Would like to continue at current dose. She is also requesting a referral to dermatology. She has a history of squamous cell carcinoma and states that her sister was recently diagnosed with melanoma. No current concerns. ROS: Review of Systems Constitutional: Negative for chills and fever. Respiratory: Negative for cough and shortness of breath. Cardiovascular: Negative for chest pain and palpitations. Gastrointestinal: Negative for abdominal pain, diarrhea, nausea and vomiting. Neurological: Negative for dizziness and headaches. Psychiatric/Behavioral: Negative for depression. The patient is not nervous/anxious. Medications: Current Outpatient Medications: buPROPion XL (WELLBUTRIN XL) 300 MG 24 hr tablet, Take 1 tablet (300 mg total) by mouth every morning., Disp: 90 tablet, Rfl: 3 multi vitamin/minerals (THERA-M ENHANCED) tablet, Take 1 tablet by mouth daily., Disp: , Rfl: progesterone (PROMETRIUM) 200 MG capsule, Take 1 capsule (200 mg total) by mouth daily., Disp: , Rfl: Allergies: Review of patient's allergies indicates: No Known Allergies Medical History: Past Medical History: Diagnosis Date Anxiety 06/22/2022 History of squamous cell carcinoma excision Kidney stones history of kidney stones PCOS (polycystic ovarian syndrome) Surgical History: Past Surgical History: Procedure Laterality Date LITHOTRIPSY Left 03/24/2003 Social History: Social History Socioeconomic History Marital status: Tobacco Use Smoking status: Never Smokeless tobacco: Never Vaping Use Vaping status: Never Used Substance and Sexual Activity Alcohol use: Not Currently Alcohol/week: 1.7 standard drinks of alcohol Types: 1 Glasses of wine per week Comment: once a month, wine Drug use: Never Sexual activity: Yes Partners: Male control/protection: None Family History: Family History Problem Relation Name Age of Onset Diabetes Mother Melissa Type 2 from PCOS Polycystic ovary syndrome Mother Melissa Hypothyroidism Mother Melissa No Known Problems Father No Known Problems Sister Asthma Brother Everett ADD / ADHD Son Heart Disease Maternal Grandmother Obdulia CHF Maternal Grandfather Gpa Ashu Kidney Disease Maternal Grandfather Gpa Ashu Other (overactive bladder) Paternal Grandmother Parkinson's Disease Paternal Grandmother Cancer Other PE: Physical Exam Vitals and nursing note reviewed. HENT: Head: Normocephalic and atraumatic. Eyes: General: No scleral icterus. Conjunctiva/sclera: Conjunctivae normal. Neck: Trachea: No tracheal deviation. Cardiovascular: Rate and Rhythm: Normal rate and regular rhythm. Heart sounds: Normal heart sounds. Pulmonary: Effort: Pulmonary effort is normal. No respiratory distress. Breath sounds: Normal breath sounds. No stridor. No wheezing. Abdominal: Palpations: There is no mass. Musculoskeletal: General: No deformity. Normal range of motion. Cervical back: Normal range of motion and neck supple. Skin: General: Skin is warm and dry. Findings: No erythema. Neurological: Mental Status: She is alert and oriented to person, place, and time. Gait: Gait is intact. Psychiatric: Mood and Affect: Mood and affect normal. Filed Vitals: 03/29/24 0957 BP: 110/64 Pulse: 79 Resp: 16 Temp: 98.1 ??F (36.7 ??C) TempSrc: Skin SpO2: 99% Weight: 74 kg (163 lb 1.6 oz) Height: 1.702 m (5' 7 ) Labs: Labs Reviewed Diagnoses/Impression: 1. Anxiety Chronic buPROPion XL (WELLBUTRIN XL) 300 MG 24 hr tablet 2. Hx of squamous cell carcinoma excision Ambulatory referral to Dermatology Recommendations and Plan: 1. Hx of squamous cell carcinoma excision - Ambulatory referral to Dermatology 2. Anxiety - buPROPion XL (WELLBUTRIN XL) 300 MG 24 hr tablet; Take 1 tablet (300 mg total) by mouth every morning. Dispense: 90 tablet; Refill: 3 Stable. Cont meds Orders Placed This Encounter Ambulatory referral to Dermatology buPROPion XL (WELLBUTRIN XL) 300 MG 24 hr tablet Cannot display discharge medications since this is not an admission. PCP: JOEL Wiggins 03/29/2024 documented in this encounter Plan of Treatment Scheduled Referrals Name Type Priority Associated Diagnoses Orde r Schedule Ambulatory referral to Dermatology Referral Routine Hx of squamous cell carcinoma excision Ordered: 03/29/2024 documented as of this encounter Visit Diagnoses Diagnosis Anxiety- Primary Anxiety state, unspecified Hx of squamous cell carcinoma excision Personal history of surgery to other organs documented in this encounter Additional Health Concerns Assessment Noted Time PHQ-9 Depression Total Score: 9 06/22/20 22 11:43 AM ENGINE MECHANIC documented as of this encounter Care Teams Customer Service Representative Teacher Relationship Specialty Start Date End Date Stephanie Pearson APNP [address] [place] [address] PCP - General NURSE PRACTITIONER 01/07/22 documented as of this encounter
--- OUTSIDE RECORDS SUMMARY | 2024-08-06 00:46 | XMS_ITS | Encounter Summary ---
Author Organization [facility] Address [address] [place] [address]. [place] [id number] [place] [address] Care Team Providers Care Supervisor Hide House Name Role Phone Stephanie Pearson Primary Care Provider [phone] Encounter Details Date Type Department Care Team (Late st Contact Info) Description 07/22/2022 7:40 AM SEARCH STRATEGIST Laboratory Only [facility] Family & Internal Medicine [facility] [address] [place] [address] Stephanie Pearson APNP [address] [place], [place] [phone] Social History Tobacco Use Types Packs/Day Years [...] on file Legal Sex Female 1:24 PM SEARCH STRATEGIST Gender Identity Female 08/05/2021 12:06 PM SEARCH STRATEGIST Sexual Orientation Straight 08/05/2021 12 :06 PM SEARCH STRATEGIST COVID-19 Exposure Response Date Recorded In the last 10 days, have yo u been in contact with someone who was confirmed or suspected to have Coronavirus/COVID-19? No / Unsure 07/22/2022 7:23 AM SEARCH STRATEGIST documented as of this encounter Plan of Treatment Not on file documented as of this encounter Procedures Procedure Name Priority Date/Time Associated Diagnosis Comments LIPID PANEL Routine 07/22/2022 7:30 AM SEARCH STRATEGIST Elevated lipids COLLECTION VENOUS BLOOD VENIPUNCTURE Routine 07/22/2022 7:29 AM SEARCH STRATEGIST Elevated lipids documented in this encounter Results * (ABNORMAL) LIPID PANEL (07/22/2022 7:30 AM SEARCH STRATEGIST) CHOLESTEROL 214(H) <200 MG/DL 07/22/2022 3:03 PM SEARCH STRATEGIST [facility] TRIGLYCERIDES 180(H) <150 MG/DL 07/22/2022 3:03 PM SEARCH STRATEGIST [facility] HDL 41 >40 MG/DL 07/22/2022 3:03 PM SEARCH STRATEGIST [facility] LDL-C 137(H) <100 MG/DL 07/22/2022 3:03 PM SEARCH STRATEGIST [facility] VLDL CALCULATION 36(H) 5 - 28 MG/DL 07/22/2022 3:03 PM SEARCH STRATEGIST [facility] CHOL/HDL RATIO 5.2(H) 0.0 - 4.0 07/22/2022 3:03 PM SEARCH STRATEGIST [facility] LDL/HDL 3.3(H) 0.41 - 2.13 07/22/2022 3:03 PM SEARCH STRATEGIST [facility] NON HDL CHOLESTEROL 173(H) <140 MG/DL 07/22/2022 3:03 PM [facility] 07/22/2022 7:30 AM SEARCH STRATEGIST us Stephanie [facility]DONADO [facility] [address] [place] [address], [place] [phone] documented in this encounter Visit Diagnoses Diagnosis Elevated lipids- Primary Other and unspecified hyperlipidemia documented in this encounter Additional Health Concerns Assessment Noted Time PHQ-9 Depression Total Score: 9 06/22/20 22 11:43 AM SEARCH STRATEGIST documented as of this encounter Care Teams Supervisor Hide House Relationship Specialty Start Date End Date Stephanie Pearson APNP [address] [place] [address] PCP - General NURSE PRACTITIONER 01/07/22 documented as of this encounter
--- OUTSIDE RECORDS SUMMARY | 2024-08-06 00:46 | XMS_ITS | Encounter Summary ---
Author Organization [facility] Address [address] [place] [address]. [place] [id number] [place] [address] Care Team Providers Care Full Time Paramedic Name Role Phone Lili Stephanie MALDONADO Primary Care Provider [phone] Reason for Visit * Reason Comments Lab (SCAN) Colonoscopy Report (SCAN) Encounter Details Date Type Department Care Team ([facility] Contact Info) Description 06/18/2024 Scan [facility] Scanned, Doc [facility] Lab (SCAN); Colonoscopy Report (SCAN) Social History Tobacco Use Types Packs/Day [...] on file Legal Sex Female 1:24 PM COMMUNICATION CLERK Gender Identity Female 08/05/2021 12:06 PM COMMUNICATION CLERK Sexual Orientation Straight 08/05/2021 12 :06 PM COMMUNICATION CLERK documented as of this encounter Plan of Treatment Not on file documented as of this encounter Procedures Procedure Name Priority Date/Time Associated Diagnosis Comments OUTSIDE LAB (SCAN ORDER) 06/18/2024 COLONOSCOPY GENERIC (SCAN ORDER) 06/18/2024 documented in this encounter Results * COLONOSCOPY GENERIC (SCAN ORDER) (06/18/2024) 06/18/2024 us Doc [facility] Scanned SCANNING Final Resu lt * OUTSIDE LAB (SCAN ORDER) (06/18/2024) 06/18/2024 us [facility] Scanned SCANNING Final Resu lt documented in this encounter Visit Diagnoses Not on filedocumented in this encounter Additional Health Concerns Assessment Noted Time PHQ-9 Depression Total Score: 9 06/22/20 22 11:43 AM COMMUNICATION CLERK documented as of this encounter Care Teams Full Time Paramedic Relationship Specialty Start Date End Date Stephanie Pearson APNP [address] [place] [address] PCP - General NURSE PRACTITIONER 01/07/22 documented as of this encounter
--- OUTSIDE RECORDS SUMMARY | 2024-08-06 00:46 | XMS_ITS | Encounter Summary ---
Author Organization [facility] Address [address] [place] [address]. [place], [place] [address] [place] [address] Care Team Providers Care Smoking Pipe Repairer Name Role Phone Stephanie Pearson Primary Care Provider [phone]- [phone] Encounter Details Date Type Department Care Team (Latest Contact Info) Description 03/08/2023 Travel Social History Tobacco Use Types Packs/Day Years Used Date Smoking Tobacco: Never Smokeless Tobacco: Never Alcohol Use Standard Drinks/Week Comments Yes 0 (1 standard drink = 0.6 oz pur e alcohol) once a month, wine PHQ-2 Answer Date Recorded Patient Health Questionnaire-2 Score 0 03/08/2023 Comments Unknown Sex and Gender Information Value Date Recorded Sex Assigned at Not on file Legal Sex Female 1:24 PM PEOPLE GREETER Gender Identity Female 08/05/2021 12:06 PM PEOPLE GREETER Sexual Orientation Straight 08/05/2021 12 :06 PM PEOPLE GREETER documented as of this encounter Plan of Treatment Not on file documented as of this encounter Visit Diagnoses Not on filedocumented in this encounter Additional Health Concerns Assessment Noted Time PHQ-9 Depression Total Score: 9 06/22/20 22 11:43 AM PEOPLE GREETER documented as of this encounter Care Teams Smoking Pipe Repairer Relationship Specialty Start Date End Date Stephanie Pearson APNP [address] [place] [address] PCP - General NURSE PRACTITIONER 01/07/22 documented as of this encounter
--- OUTSIDE RECORDS SUMMARY | 2024-08-06 00:46 | XMS_ITS | Encounter Summary ---
Author Organization [facility] Address [address] [place] [address]. [place], [place] [address] [place] [address] Care Team Providers Care Perfect Binder Feeder Offbearer Name Role Phone Stephanie Pearson Primary Care Provider [phone]- [phone] Encounter Details Date Type Department Care Team (Latest Contact Info) Description 07/22/2022 Travel Social History Tobacco Use Types Packs/Day [...] on file Legal Sex Female 1:24 PM SUPERVISOR DETASSELING CREW Gender Identity Female 08/05/2021 12:06 PM SUPERVISOR DETASSELING CREW Sexual Orientation Straight 08/05/2021 12 :06 PM SUPERVISOR DETASSELING CREW COVID-19 Exposure Response Date Recorded In the last 10 days, have yo u been in contact with someone who was confirmed or suspected to have Coronavirus/COVID-19? No / Unsure 07/22/2022 7:23 AM SUPERVISOR DETASSELING CREW documented as of this encounter Plan of Treatment Not on file documented as of this encounter Visit Diagnoses Not on filedocumented in this encounter Additional Health Concerns Assessment Noted Time PHQ-9 Depression Total Score: 9 06/22/20 22 11:43 AM SUPERVISOR DETASSELING CREW documented as of this encounter Care Teams Perfect Binder Feeder Offbearer Relationship Specialty Start Date End Date Stephanie Pearson APNP [address] [place] [address] PCP - General NURSE PRACTITIONER 01/07/22 documented as of this encounter
--- OUTSIDE RECORDS SUMMARY | 2024-08-06 00:46 | XMS_ITS | Encounter Summary ---
Author Organization [facility] [place] [facility] Address [address] [place] [address]. [place], [place] [address] [place] [address] Care Team Providers Care Java Project Manager Name Role Phone Stephanie Pearson Primary Care Provider [phone]- [phone] Reason for Visit * Reason Onset Date Comments Orders 05/17/2024 Encounter Details Date Type Department Care Team (Late st Contact Info) Description 05/17/2024 Telephone [facility] Family & Internal Medicine [facility] [address] [place] [address] Stephanie Pearson APNP [address] [place], [place] [phone] Orders Social History Tobacco Use Types Packs/Day Years [...] on file Legal Sex Female 1:24 PM ELECTRONIC DESIGN ENGINEER Gender Identity Female 08/05/2021 12:06 PM ELECTRONIC DESIGN ENGINEER Sexual Orientation Straight 08/05/2021 12 :06 PM ELECTRONIC DESIGN ENGINEER documented as of this encounter Plan of Treatment Not on file documented as of this encounter Visit Diagnoses Not on filedocumented in this encounter Additional Health Concerns Assessment Noted Time PHQ-9 Depression Total Score: 9 06/22/20 22 11:43 AM ELECTRONIC DESIGN ENGINEER documented as of this encounter Care Teams Java Project Manager Relationship Specialty Start Date End Date Stephanie Pearson APNP [address] [place] [address] PCP - General NURSE PRACTITIONER 01/07/22 documented as of this encounter
--- OUTSIDE RECORDS SUMMARY | 2024-08-06 00:46 | XMS_ITS | Encounter Summary ---
Author Organization [facility] Address [address] [place] [address]. [place], [place] [address] [place] [address] Care Team Providers Care Adobe Maker Name Role Phone Stephanie Pearson Primary Care Provider [phone]- [phone] Encounter Details Date Type Department Care Team (Latest Contact Info) Description 03/15/2023 Travel Social History Tobacco Use Types Packs/Day [...] on file Legal Sex Female 1:24 PM AIRCRAFT CAPTAIN Gender Identity Female 08/05/2021 12:06 PM AIRCRAFT CAPTAIN Sexual Orientation Straight 08/05/2021 12 :06 PM AIRCRAFT CAPTAIN documented as of this encounter Plan of Treatment Not on file documented as of this encounter Visit Diagnoses Not on filedocumented in this encounter Additional Health Concerns Assessment Noted Time PHQ-9 Depression Total Score: 9 06/22/20 22 11:43 AM AIRCRAFT CAPTAIN documented as of this encounter Care Teams Adobe Maker Relationship Specialty Start Date End Date Stephanie Pearson APNP [address] [place] [address] PCP - General NURSE PRACTITIONER 01/07/22 documented as of this encounter
--- OUTSIDE RECORDS SUMMARY | 2024-08-06 00:46 | XMS_ITS | Encounter Summary ---
Author Organization [facility] Address [address] [place] [address]. [place] [id number] [place] [address] Care Team Providers Care Furniture Upholstery Mechanic Name Role Phone Stephanie Pearson Primary Care Provider +1- [phone] Reason for Visit * Reason Comments Weight Problem Encounter Details Date Type Department Care Team ([facility] st Contact Info) Description 03/08/2023 8:00 AM CDT Office Visit [facility] Family [facility] Medicine [id number] [place] [address] Stephanie Pearson APNP [facility] [place], [place] [id number] Weight Problem Social History Tobacco Use Types Packs/Day Years [...] on file Legal Sex Female 1:24 PM REPRESENTATIVE GOVERNMENT RELATIONS Gender Identity Female 08/05/2021 12:06 PM REPRESENTATIVE GOVERNMENT RELATIONS Sexual Orientation Straight 08/05/2021 12 :06 PM REPRESENTATIVE GOVERNMENT RELATIONS documented as of this encounter Last Filed Vital Signs Vital Sign Reading Time Taken Comments Blood Pressure 110/72 03/08/2023 8:05 AM CDT Pulse 89 03/08/2023 8:05 AM CDT Temperature 36.8 ??C (98.2 ??F) 03/08/2023 8:05 AM CD T Respiratory Rate 16 03/08/2023 8:05 AM CDT Oxygen Saturation 99% 03/08/2023 8:05 AM CDT Inhaled Oxygen Concentration - - Weight 87.1 kg (192 lb 1.6 oz) 03/08/2023 8:05 A M CDT Height 170.2 cm (5' 7 ) 03/08/2023 8:05 AM CDT Body Mass Index 30.09 03/08/2023 8:05 AM CDT documented in this encounter Progress Notes * JOEL Wiggins - 03/08/2023 8:00 AM CDT Images from the original note were not included. [facility] OFFICE VISIT Reason for Visit: Weight Problem History of Present Illness: Pt has been struggling with losing weight. She has counted her calories, changed her diet, increased her protein, increased her exercise. She has started this several months ago and has not seen hardly any results. She states she did go as low as 1200 calories per day at one point and was still notsuccessful with this. She is on buoproprion for anxiety and wonders if this is a cause. Not on SSRIor SNRI currently. She does have a diagnosis of PCOS and has been on metformin in the past but did not like the way it made he feel. She does not recall the formulation she was on, IR or ER. She is not having any issues sleeping. ROS: Review of Systems Constitutional: Negative for chills and fever. Respiratory: Negative for cough and shortness of breath. Cardiovascular: Negative for chest pain and palpitations. Gastrointestinal: Negative for abdominal pain, nausea and vomiting. Neurological: Negative for dizziness and headaches. Psychiatric/Behavioral: Negative for depression and suicidal ideas. The patient is not nervous/anxious. Medications: Current Outpatient Medications: buPROPion XL (WELLBUTRIN XL) 300 MG 24 hr tablet, Take 1 tablet (300 mg total) by mouth every morning. Patient must be seen for further refills, Disp: 90 tablet, Rfl: 1 multi vitamin/minerals (THERA-M ENHANCED) tablet, Take 1 tablet by mouth daily., Disp: , Rfl: Allergies: Review of patient's allergies indicates: No Known Allergies Medical History: Past Medical History: Diagnosis Date Anxiety 06/22/2022 Kidney stones history of kidney stones PCOS (polycystic ovarian syndrome) Surgical History: Past Surgical History: Procedure Laterality Date LITHOTRIPSY Left 03/24/2003 Social History: Social History Socioeconomic History Marital status: Tobacco Use Smoking status: Never Smokeless tobacco: Never Vaping Use Vaping Use: Never used Substance and Sexual Activity Alcohol use: Yes Comment: once a month, wine Drug use: Never Sexual activity: Yes Partners: Male control/protection: None Family History: Family History Problem Relation Name Age of Onset Diabetes Mother Polycystic ovary syndrome Mother Hypothyroidism Mother No Known Problems Father No Known Problems Sister Asthma Brother ADD / ADHD Son Heart Disease Maternal Grandmother CHF Maternal Grandfather Kidney Disease Maternal Grandfather Other (overactive bladder) Paternal Grandmother Parkinson's Disease [...] breath sounds. No stridor. No wheezing. Abdominal: General: Bowel sounds are normal. There is no distension. Palpations: Abdomen is soft. There is no mass. Tenderness: There is no abdominal tenderness. There is no guarding or rebound. Musculoskeletal: General: No deformity. Normal range of motion. Cervical back: Normal range of motion and neck supple. Skin: General: Skin is warm and dry. Findings: No erythema. Neurological: Mental Status: She is alert and oriented to person, place, and time. Gait: Gait is intact. Psychiatric: Mood and Affect: Mood and affect normal. Filed Vitals: 03/08/23 0805 BP: 110/72 Pulse: 89 Resp: 16 Temp: 98.2 ??F (36.8 ??C) TempSrc: Skin SpO2: 99% Weight: 87.1 kg (192 lb 1.6 oz) Height: 5' 7 (1.702 m) Labs: Labs Reviewed Diagnoses/Impression: 1. PCOS (polycystic ovarian syndrome) Chronic TESTOSTERONE, FREE & TOTAL INSULIN,TOTAL HEMOGLOBIN, GLYCOSYLATED 2. Obesity (BMI 30-39.9) HEMOGLOBIN, GLYCOSYLATED Recommendations and Plan: 1. PCOS (polycystic ovarian syndrome) - TESTOSTERONE, FREE & TOTAL; Future - INSULIN,TOTAL; Future - HEMOGLOBIN, GLYCOSYLATED; Future 2. Obesity (BMI 30-39.9) - HEMOGLOBIN, GLYCOSYLATED; Future Will check labs to include Test, ins and HGB A1C. We discussed TLC's and lifestyle changes conducive to weight loss. More plan after results. We did discuss treatment options briefly. Orders Placed This Encounter TESTOSTERONE, FREE & TOTAL INSULIN,TOTAL HEMOGLOBIN, GLYCOSYLATED Cannot display discharge medications since this is not an admission. PCP: JOEL Wiggnis 03/08/2023 documented in this encounter Plan of Treatment Not on file documented as of this encounter Results * HEMOGLOBIN, GLYCOSYLATED (03/15/2023 8:00 AM CDT) HGB A1C 4.6 4.5 - 6.2 % 03/15/2023 2:51 PM CDT [facility] ESTIMATED AVG GLUCOSE 85 74 - 106 MG/DL 03/15/2023 2:51 PM CDT [facility] 03/15/2023 8:00 AM CDT Stephanie MALDONADO [facility]OR[facility] Final Resul t Performing Organization Address [facility] de Phone Number [facility] [address] [place] [address], [place] [phone] * INSULIN,TOTAL (03/15/2023 8:00 AM CDT) INSULIN 11.4 2.6 - 37.6 uIU/ML 03/16/2023 10:22 AM CDT [facility] Comment: ASSAY PERFORMED BY CHEMILUMINESCENCE METHODOLOGY USING SIEMENS RTF LogicAUR XPT REAGENT. PATIENT RESULTS DETERMINED BY ASSAYS USING DIFFERENT MANUFACTURERS FOR METHODS MAY NOT BE COMPARABLE. 03/15/2023 8:00 AM CDT Stephanie MALDONADO [facility]OR[facility] Final Resul t [facility] [address] [place] [address], [id number] documented in this encounter Visit Diagnoses Diagnosis PCOS (polycystic ovarian syndrome)- Primary Polycystic ovaries Obesity (BMI 30-39.9) Obesity, unspecified documented in this encounter Additional Health Concerns Assessment Noted Time PHQ-9 Depression Total Score: 9 06/22/20 22 11:43 AM REPRESENTATIVE GOVERNMENT RELATIONS documented as of this encounter Care Teams Furniture Upholstery Mechanic Relationship Specialty Start Date End Date Stephanie Pearson APNP [address] [place] [address] PCP - General NURSE PRACTITIONER 01/07/22 documented as of this encounter
--- OUTSIDE RECORDS SUMMARY | 2024-08-06 00:46 | XMS_ITS | Encounter Summary ---
Author Organization [facility] Address [address] [place] [address]. [place] [id number] [place] [address] Care Team Providers Care Radiator Fitter Name Role Phone Lili Stephanie MALDONADO Primary Care Provider [phone] Reason for Visit * Reason Comments Lab (SCAN) Encounter Details Date Type Department Care Team (Latest Contact Info) Description 05/23/2024 Scan [facility] INFO SRVCS Scanned, Doc [facility] Lab (SCAN) Social History Tobacco Use Types Packs/Day [...] on file Legal Sex Female 1:24 PM WILDLIFE ENFORCEMENT MAJOR Gender Identity Female 08/05/2021 12:06 PM WILDLIFE ENFORCEMENT MAJOR Sexual Orientation Straight 08/05/2021 12 :06 PM WILDLIFE ENFORCEMENT MAJOR documented as of this encounter Plan of Treatment Not on file documented as of this encounter Procedures Procedure Name Priority Date/Time Associated Diagnosis Comments OUTSIDE LAB (SCAN ORDER) 05/23/2024 OUTSIDE LAB (SCAN ORDER) 05/23/2024 OUTSIDE LAB (SCAN ORDER) 05/23/2024 OUTSIDE LAB (SCAN ORDER) 05/23/2024 OUTSIDE LAB (SCAN ORDER) 05/23/2024 OUTSIDE LAB (SCAN ORDER) 05/23/2024 OUTSIDE LAB (SCAN ORDER) 05/23/2024 OUTSIDE LAB (SCAN ORDER) 05/23/2024 documented in this encounter Results * OUTSIDE LAB (SCAN ORDER) (05/23/2024) 05/23/2024 [facility] Scanned SCANNING Final Resu lt * OUTSIDE LAB (SCAN ORDER) (05/23/2024) 05/23/2024 [facility] Scanned SCANNING Final Resu lt * OUTSIDE LAB (SCAN ORDER) (05/23/2024) 05/23/2024 [facility] Scanned SCANNING Final Resu lt * OUTSIDE LAB (SCAN ORDER) (05/23/2024) 05/23/2024 Result [facility] Scanned SCANNING Final Resu lt * OUTSIDE LAB (SCAN ORDER) (05/23/2024) 05/23/2024 [facility] Scanned SCANNING Final Resu lt * OUTSIDE LAB (SCAN ORDER) (05/23/2024) 05/23/2024 [facility] Scanned SCANNING Final Resu lt * OUTSIDE LAB (SCAN ORDER) (05/23/2024) 05/23/2024 [facility] Scanned SCANNING Final Resu lt * OUTSIDE LAB (SCAN ORDER) (05/23/2024) 05/23/2024 [facility] Scanned SCANNING Final Resu lt documented in this encounter Visit Diagnoses Not on filedocumented in this encounter Additional Health Concerns Assessment Noted Time PHQ-9 Depression Total Score: 9 06/22/20 22 11:43 AM WILDLIFE ENFORCEMENT MAJOR documented as of this encounter Care Teams Radiator Fitter Relationship Specialty Start Date End Date Stephanie Pearson APNP [address] [place] [address] PCP - General NURSE PRACTITIONER 01/07/22 documented as of this encounter
--- OUTSIDE RECORDS SUMMARY | 2024-08-06 00:46 | XMS_ITS | Encounter Summary ---
Author Organization [facility] Address [address] [place] [address]. [address] [address] Care Team Providers Care Professor Of Religion Name Role Phone Stephanie Pearson Dunia MALDONADO Primary Care Provider [phone] Reason for Visit * Reason Comments CT (SCAN) Lab (SCAN) Encounter Details Date Type Department Care Team ([facility] [address] Contact Info) Description 05/03/2024 Scan [facility] INFO SRVCS Scanned, Doc Med Group CT (SCAN); Lab (SCAN) Social History Tobacco Use Types [...] on file Legal Sex Female 1:24 PM TURN MACHINE OPERATOR Gender Identity Female 08/05/2021 12:06 PM TURN MACHINE OPERATOR Sexual Orientation Straight 08/05/2021 12 :06 PM TURN MACHINE OPERATOR documented as of this encounter Plan of Treatment Not on file documented as of this encounter Procedures Procedure Name Priority Date/Time Associated Diagnosis Comments CT GENERIC 05/03/2024 CT GENERIC 05/03/2024 OUTSIDE LAB (SCAN ORDER) 05/03/2024 documented in this encounter Results * OUTSIDE LAB (SCAN ORDER) (05/03/2024) 05/03/2024 [facility] Scanned SCANNING Final Resu lt * CT GENERIC (05/03/2024) Anatomical Region Laterality Modality Other 05/03/2024 us [facility] Scanned SCANNING Final Resu lt * CT GENERIC (05/03/2024) Anatomical Region Laterality Modality Other 05/03/2024 [facility] Scanned SCANNING Final Resu lt documented in this encounter Visit Diagnoses Not on filedocumented in this encounter Additional Health Concerns Assessment Noted Time PHQ-9 Depression Total Score: 9 06/22/20 22 11:43 AM TURN MACHINE OPERATOR documented as of this encounter Care Teams Professor Of Religion Relationship Specialty Start Date End Date Stephanie Pearson APNP [address] [place] [address] PCP - General NURSE PRACTITIONER 01/07/22 documented as of this encounter
--- OUTSIDE RECORDS SUMMARY | 2024-08-06 00:46 | XMS_ITS | Encounter Summary ---
Author Organization [facility] Address [address] [place] [address]. [place], [place] [address] [place] [address] Care Team Providers Care Viscosity Inspector Name Role Phone Stephanie Pearson Primary Care Provider [phone]- [phone] Encounter Details Date Type Department Care Team (Latest Contact Info) Description 07/30/2024 Travel Social History Tobacco Use Types Packs/Day [...] on file Legal Sex Female 1:[address] REGISTRAR Gender Identity Female 08/05/2021 12:[address] REGISTRAR Sexual Orientation Straight 08/05/2021 12 :[address] REGISTRAR documented as of this encounter Plan of Treatment Not on file documented as of this encounter Visit Diagnoses Not on filedocumented in this encounter Additional Health Concerns Assessment Noted Time PHQ-9 Depression Total Score: 9 06/22/20 22 11:[address] REGISTRAR documented as of this encounter Care Teams Viscosity Inspector Relationship Specialty Start Date End Date Stephanie Pearson APNP [address] [id number] PCP - General NURSE PRACTITIONER 01/07/22 documented as of this encounter
--- OUTSIDE RECORDS SUMMARY | 2024-08-06 00:46 | XMS_ITS | Clinical Summary ---
Author Organization [facility] Address [address] [place] [address]. [place], [place] [address] [place] [address] Care Team Providers Care Terminal Carman Name Role Phone Stephanie Pearson Primary Care Provider +1- [phone] Allergies No known active allergies Medications multi vitamin/mineral s (THERA-M ENHANCED) tablet Take 1 tablet by mouth daily. Active progesterone (PROMETRIUM) 200 MG capsule Take 1 capsule (200 mg total) by mouth daily. 05/06/2023 Active buPROPion XL (WELLBUTRIN XL) 300 MG 24 hr tabletIndicatio ns:Anxiety Take 1 tablet (300 mg total) by mouth every morning. 90 tablet 3 03/29/2024 Active Active Problems Problem Noted Date Diagnosed Date Anxiety 06/22/2022 PCOS (polycystic ovarian syndrome) Encounters Date Type Department Care Team Description 07/30/2024 8:00 AM GRAPHICS SPECIALIST Office Visit [facility] [address] [phone] Stephanie Pearson APNP Abnormal Lab Results 07/30/2024 Travel 07/19/2024 MyChart Message Enc [facility] Internal [address] [phone] Stephanie Pearson APNP Autoimmune Antibody Test Results 06/18/2024 Scan [facility] INFO SRVCS Scanned, Doc [facility] Lab (SCAN); Colonoscopy Report (SCAN) 06/14/2024 Scan [facility] INFO SRVCS Scanned, Doc Med Group 06/10/2024 Scan [facility] INFO SRVCS Scanned, Doc [facility] Ultrasound (SCAN) 05/23/2024 Scan [facility] INFO SRVCS Scanned, Doc [facility] Lab (SCAN) 05/22/2024 Scan [facility] INFO SRVCS Scanned, Doc Med Group 05/17/2024 Telephone [facility] Internal [address] [phone] Stephanie Pearson, APNP Orders 05/07/[address] [phone] Stephanie Pearson, APNP Lab Results from Last 3 Months Immunizations Name Administration Dates Next Due FLUCELVAX (ccIIV3, TRIVALENT, 0.5mL) 06/14/2024 Influenza Adult (Generic) 06/10/2023,06/11/2022, 05/22/2020 MODERNA COVID-19 (12+) MRNA, LNP-S, PF, 100 MCG/ 0.5 ML DOSE 10/03/2020,09/05/2020 MODERNA COVID-19 (NURSING INFORMATICS ANALYST JULIO NINA), MRNA, LNP-S, PF, 50 MCG/ 0.25 ML DOSE 06/10/2021 Tdap (Generic) 05/04/2016 Family History Medical History Relation Comments Arthritis Brother Recently diagnos ed with RA Asthma Brother No Known Problems Father CHF Maternal Grandfather Kidney Disease Maternal Grandfather Heart Disease Maternal Grandmother Diabetes Mother Type 2 from PCOS Hypothyroidism Mother Polycystic ovary syndrome Mother Cancer Other Parkinson's Disease Paternal Grandmother overactive bladder Paternal Grandmother No Known Problems Sister ADD / ADHD Son Relation Status Comments Brother Alive Father Alive Maternal Grandfather Maternal Grandmother Alive Mother Alive Other Paternal Grandfather Paternal Grandmother Sister Alive Son Alive Social History Tobacco Use Types Packs/Day Years Used Date Smoking Tobacco: Never Smokeless Tobacco: Never Tobacco Cessation:Counseling Given: Not Answered Alcohol Use Standard Drinks/Week Comments Not Currently 1.7 (1 standard drink = 0.6 oz p ure alcohol) once a month, wine PHQ-2 Answer Date Recorded Patient Health Questionnaire-2 Score 0 07/28/2023 Comments No Sex and Gender Information Value Date Recorded Sex Assigned at Not on file Legal Sex Female 1:24 PM GRAPHICS SPECIALIST Gender Identity Female 08/05/2021 12:06 PM GRAPHICS SPECIALIST Sexual Orientation Straight 08/05/2021 12 :06 PM GRAPHICS SPECIALIST Last Filed Vital Signs Vital Sign Reading Time Taken Comments Blood Pressure 104/66 07/30/2024 8:03 AM GRAPHICS SPECIALIST Pulse 78 07/30/2024 8:03 AM GRAPHICS SPECIALIST Temperature 36.6 ??C (97.9 ??F) 07/30/2024 8:03 AM CS T Respiratory Rate 16 07/30/2024 8:03 AM GRAPHICS SPECIALIST Oxygen Saturation 98% 07/30/2024 8:03 AM GRAPHICS SPECIALIST Inhaled Oxygen Concentration - - Weight 78.5 kg (173 lb) 07/30/2024 8:03 AM GRAPHICS SPECIALIST Height 170.2 cm (5' 7 ) 07/30/2024 8:03 AM GRAPHICS SPECIALIST Body Mass Index 27.1 07/30/2024 8:03 AM GRAPHICS SPECIALIST Plan of Treatment Health Maintenance Due Date Last Done Comments Cervical Cancer Screening Pap Smear (Age 30 to 64) Every 3 Years 1990 Hepatitis B Vaccines (1 of 3 - 19+ 3-dose series) 2009 Cervical Cancer Screening Pap with HPV Testing (Age 30 to 64) Every 5 Years 02/10/2020 Annual Physical 07/28/2024 07/28/2023 Cervical Cancer Screening with HPV 03/07/2026 Postponed from 02/10/2020 (Going to Outside Clinic) DTaP, Tdap and Td Vaccines (2 - Td or Tdap) 05/04/2026 05/04/2016 Hepatitis C Completed 07/28/2023 COVID-19 Vaccine Completed 06/14/2024, , 06/12/2022, Additional history exists Influenza Adult Completed 06/14/2024, 05/24, 06/11/2022, Additional history exists HPV Vaccines Aged Out No longer eligi ble based on patient's age to complete this topic Meningococcal Vaccine Aged Out No tao jose eligible based on patient's age to complete this topic Pneumococcal Vaccine: Pediatrics (0 to 5 Years) and At-Risk Patients (6 to 64 Years) Aged Out No longer eligible based on patient's age to complete this topic RSV Immunizations Under 20 Months Aged Out No longer eligible based on patient's age to complete this topic Procedures Procedure Name Priority Date/Time Associated Diagnosis Comments OUTSIDE LAB (SCAN ORDER) 06/18/2024 COLONOSCOPY GENERIC (SCAN ORDER) 06/18/2024 ULTRASOUND GENERIC (SCAN ORDER) 06/10/2024 OUTSIDE LAB (SCAN ORDER) 05/23/2024 OUTSIDE LAB (SCAN ORDER) 05/23/2024 OUTSIDE LAB (SCAN ORDER) 05/23/2024 OUTSIDE LAB (SCAN ORDER) 05/23/2024 OUTSIDE LAB (SCAN ORDER) 05/23/2024 OUTSIDE LAB (SCAN ORDER) 05/23/2024 OUTSIDE LAB (SCAN ORDER) 05/23/2024 OUTSIDE LAB (SCAN ORDER) 05/23/2024 HEPATITIS C ANTIBODY Routine 07/28/2023 9:53 AM GRAPHICS SPECIALIST Need for hepatitis C screening test from Last 3 Months or Most Recently Relevant to Health Maintenance Results * OUTSIDE LAB (SCAN ORDER) (06/18/2024) Only the most recent of9 resultswithin the time period is included. 06/18/2024 [facility] Scanned SCANNING Final Resu lt * COLONOSCOPY GENERIC (SCAN ORDER) (06/18/2024) 06/18/2024 [facility] Scanned SCANNING Final Resu lt * ULTRASOUND GENERIC (SCAN ORDER) (06/10/2024) Anatomical Region Laterality Modality Other 06/10/2024 [facility] Scanned SCANNING Final Resu lt * HEPATITIS C AB ([facility] ONLY) (07/28/2023 9:53 AM GRAPHICS SPECIALIST) HEPATITIS C AB NON-REACTI VE NON-REACT NILA 07/28/2023 6:38 PM GRAPHICS SPECIALIST [facility] Comment: ANTIBODIES TO HCV NOT DETECTED. DOES NOT EXCLUDE THE POSSIBILITY OF EXPOSURE TO HCV. 07/28/2023 9:53 AM GRAPHICS SPECIALIST Stephanie [facility]ADO [facility] Final Resul t [facility] [address] [place] [address], [id number] from Last 3 Months or Most Recently Relevant to Health [place] [address] Care Teams Terminal Carman Relationship Specialty Start Date End Date Stephanie Pearson APNP [facility] [place] [address] PCP - General NURSE PRACTITIONER 01/07/22
--- OUTSIDE RECORDS SUMMARY | 2024-08-06 00:46 | XMS_ITS | Encounter Summary ---
Author Organization [facility] Address [address] [place] [address]. [place], [place] [address] [place] [address] Care Team Providers Care Metal Inspector Name Role Phone Stephanie Pearson Primary Care Provider +1- [phone] Encounter Details Date Type Department Care Team (Latest Contact Info) Description 06/14/2024 Scan [facility] HEALTH INFO SRVCS Scanned, Doc Med Group Social History Tobacco Use Types Packs/Day Years [...] on file Legal Sex Female 1:24 PM WEB PRODUCTION ARTIST Gender Identity Female 08/05/2021 12:06 PM WEB PRODUCTION ARTIST Sexual Orientation Straight 08/05/2021 12 :06 PM WEB PRODUCTION ARTIST documented as of this encounter Plan of Treatment Not on file documented as of this encounter Visit Diagnoses Not on filedocumented in this encounter Additional Health Concerns Assessment Noted Time PHQ-9 Depression Total Score: 9 06/22/20 22 11:43 AM WEB PRODUCTION ARTIST documented as of this encounter Care Teams Metal Inspector Relationship Specialty Start Date End Date Stephanie Pearson APNP [address] [place] [id number] PCP - General NURSE PRACTITIONER 01/07/22 documented as of this encounter
--- OUTSIDE RECORDS SUMMARY | 2024-08-06 00:46 | XMS_ITS | Encounter Summary ---
Author Organization [facility] Address [address] [place] [address]. [place], [place] [phone] [place] [address] Care Team Providers Care Landscape Gardener Name Role Phone Stephanie Pearson Primary Care Provider +1- [phone] Encounter Details Date Type Department Care Team (Latest Contact Info) Description 03/29/2024 Travel Social History Tobacco Use Types Packs/Day [...] on file Legal Sex Female 1:24 PM TERRITORY OUTSIDE SALES MANAGER Gender Identity Female 08/05/2021 12:06 PM TERRITORY OUTSIDE SALES MANAGER Sexual Orientation Straight 08/05/2021 12 :06 PM TERRITORY OUTSIDE SALES MANAGER documented as of this encounter Plan of Treatment Not on file documented as of this encounter Visit Diagnoses Not on filedocumented in this encounter Additional Health Concerns Assessment Noted Time PHQ-9 Depression Total Score: 9 06/22/20 22 11:43 AM TERRITORY OUTSIDE SALES MANAGER documented as of this encounter Care Teams Landscape Gardener Relationship Specialty Start Date End Date Stephanie Pearson APNP [address] [id number] PCP - General NURSE PRACTITIONER 01/07/22 documented as of this encounter
--- OUTSIDE RECORDS SUMMARY | 2024-08-06 00:46 | XMS_ITS | Encounter Summary ---
Author Organization [facility] Address [address] [place] [address]. [place], [place] [address] [place] [address] Care Team Providers Care Palletiser Operator Name Role Phone Stephanie Pearson Primary Care Provider [phone]- [phone] Reason for Visit * Reason Onset Date Comments Results 01/17/2022 Encounter Details Date Type Department Care Team (Late st Contact Info) Description 01/17/2022 Telephone [facility] Medical Group Family & Internal Medicine [facility] [address] [place] [address] Stephanie Pearson APNP [address] [place] [address] Results Social History Tobacco Use Types Packs/Day Years [...] on file Legal Sex Female 1:24 PM METALLURGICAL ENGINEERING TECHNICIAN Gender Identity Female 08/05/2021 12:06 PM METALLURGICAL ENGINEERING TECHNICIAN Sexual Orientation Straight 08/05/2021 12 :06 PM METALLURGICAL ENGINEERING TECHNICIAN COVID-19 Exposure Response Date Recorded In the last 10 days, have yo u been in contact with someone who was confirmed or suspected to have Coronavirus/COVID-19? No / Unsure 01/07/2022 7:55 AM CDT documented as of this encounter Progress Notes * Consuelo Lira MA - 01/17/2022 10:59 AM CDT Pt notified and v/u to this. Lab appt made in 6 months to get labs redrawn. BB 01/17/2022 * Consuelo Lira MA - 01/17/2022 10:55 AM CDT ----- Message from JOEL Wiggins sent at 01/17/2022 9:45 AM CDT ----- Lipids elevated---decrease animal fats and carbs in diet. Recheck lipids in 6 months. documented in this encounter Plan of Treatment Not on file documented as of this encounter Visit Diagnoses Not on filedocumented in this encounter Additional Health Concerns Assessment Noted Time PHQ-9 Depression Total Score: 3 01/08/20 22 9:13 AM CDT documented as of this encounter Care Teams Palletiser Operator Relationship Specialty Start Date End Date Stephanie Pearson APNP [address] [place] [address] PCP - General NURSE PRACTITIONER 01/07/22 documented as of this encounter
--- OUTSIDE RECORDS SUMMARY | 2024-08-06 00:46 | XMS_ITS | Encounter Summary ---
Author Organization [facility] Address [address] [place] [address]. [place], [place] [address] [place] [address] Care Team Providers Care Laborer Drying Department Name Role Phone Stephanie Pearson Primary Care Provider [phone]- [phone] Encounter Details Date Type Department Care Team (Latest Contact Info) Description 06/22/2022 Travel Social History Tobacco Use Types Packs/Day [...] on file Legal Sex Female 1:24 PM JACQUARD LOOM HEDDLES TIER Gender Identity Female 08/05/2021 12:06 PM JACQUARD LOOM HEDDLES TIER Sexual Orientation Straight 08/05/2021 12 :06 PM JACQUARD LOOM HEDDLES TIER COVID-19 Exposure Response Date Recorded In the last 10 days, have yo u been in contact with someone who was confirmed or suspected to have Coronavirus/COVID-19? No / Unsure 06/22/2022 10:20 AM JACQUARD LOOM HEDDLES TIER documented as of this encounter Plan of Treatment Not on file documented as of this encounter Visit Diagnoses Not on filedocumented in this encounter Additional Health Concerns Assessment Noted Time PHQ-9 Depression Total Score: 9 06/22/20 22 11:43 AM JACQUARD LOOM HEDDLES TIER documented as of this encounter Care Teams Laborer Drying Department Relationship Specialty Start Date End Date Stephanie Pearson APNP [address] [place] [address] PCP - General NURSE PRACTITIONER 01/07/22 documented as of this encounter
--- OUTSIDE RECORDS SUMMARY | 2024-08-06 00:46 | XMS_ITS | Encounter Summary ---
Author Organization [facility] Address [address] [place] [address]. [place], [place] [address] [place] [address] Care Team Providers Care Predatory Animal Exterminator Name Role Phone Stephanie Pearson Primary Care Provider [phone] Reason for Referral * Consultation (Routine) - Closed Specialty Diagnoses / Procedures Referred By Luz cho Referred To Contact ENDOCRINOLOGY Diagnoses Elevated testosterone level in female Procedures OFFICE/OUTPATIENT NEW LOW MDM 30-44 MINUTES OFFICE/OUTPT VISIT,NEW,LEVL IV OFFICE/OUTPT VISIT,NEW,LEVL V OFFICE/OUTPT VISIT,EST,LEVL III OFFICE/OUTPT VISIT,EST,LEVL IV OFFICE/OUTPT VISIT,EST,LEVL V Stephanie Pearson APNP [address] [place] [address] Phone: tel: fax: [facility] [address] [place] [address] Phone: tel: fax: Referral ID Status Reason Start Date Expiration Date Visits Re quested Visits Authorized [id number] Closed 04/07/2023 05/07/2024 99 99 Reason for Visit * Reason Onset Date Comments Lab Results 04/07/2023 Encounter Details Date Type Department Care Team (Late st Contact Info) Description 04/07/2023 Telephone [facility] Medical Group Family & Internal Medicine [place] [address] [place] [phone] Stephanie Pearson APNP [address] [place] [address] Lab Results Social History Tobacco Use Types Packs/Day [...] on file Legal Sex Female 1:24 PM SURGERY SCHEDULING COORDINATOR Gender Identity Female 08/05/2021 12:06 PM SURGERY SCHEDULING COORDINATOR Sexual Orientation Straight 08/05/2021 12 :06 PM SURGERY SCHEDULING COORDINATOR documented as of this encounter Progress Notes * Holly Barba MA - 04/07/2023 3:43 PM CDT ----- Message from JOEL Wiggins sent at 04/05/2023 8:28 PM CDT ----- Testosterone elevated---she needs a referral to an air intercept controller supervisor. This could be indicative of PCOS but also would like for her to see endo to rule other potential problems. RoomRevealt message sent to pt. documented in this encounter Plan of Treatment Scheduled Referrals Name Type Priority Associated Diagnoses Orde r Schedule Ambulatory referral to Endocrinology (OTHER) Referral Routine Elevated testosterone level in female Ordered: 04/07/2023 documented as of this encounter Visit Diagnoses Diagnosis Elevated testosterone level in female- Primary Unspecified endocrine disorder documented in this encounter Additional Health Concerns Assessment Noted Time PHQ-9 Depression Total Score: 9 06/22/20 22 11:43 AM SURGERY SCHEDULING COORDINATOR documented as of this encounter Care Teams Predatory Animal Exterminator Relationship Specialty Start Date End Date Stephanie Pearson APNP [facility] [place] [address] PCP - General NURSE PRACTITIONER 01/07/22 documented as of this encounter
--- OUTSIDE RECORDS SUMMARY | 2024-08-06 00:46 | XMS_ITS | Encounter Summary ---
Author Organization [facility] Address [address] [place] [address]. [place] [phone] [place] [address] Care Team Providers Care Rehabilitation Supervisor Name Role Phone Stephanie Pearson Dunia MALDONADO Primary Care Provider [phone]- [phone] Reason for Visit * Reason Comments Lab (SCAN) CT (SCAN) Encounter Details Date Type Department Care Team ([facility] Contact Info) Description 05/22/2022 Scan [facility] SRV[facility] Scanned, Doc Med Group Lab (SCAN); CT (SCAN) Social History Tobacco Use Types Packs/Day [...] on file Legal Sex Female 1:24 PM MANAGER FAMILY Gender Identity Female 08/05/2021 12:06 PM MANAGER FAMILY Sexual Orientation Straight 08/05/2021 12 :06 PM MANAGER FAMILY documented as of this encounter Plan of Treatment Not on file documented as of this encounter Procedures Procedure Name Priority Date/Time Associated Diagnosis Comments CT GENERIC 05/22/2022 OUTSIDE LAB (SCAN ORDER) 05/22/2022 documented in this encounter Results * OUTSIDE LAB (SCAN) (05/22/2022) 05/22/2022 us Doc Med Group Scanned SCANNING Final Resu lt * CT GENERIC (05/22/2022) Anatomical Region Laterality Modality Other 05/22/2022 us Doc Med [facility] Scanned SCANNING Final Resu lt documented in this encounter Visit Diagnoses Not on filedocumented in this encounter Additional Health Concerns Assessment Noted Time PHQ-9 Depression Total Score: 3 01/08/20 22 9:13 AM CDT documented as of this encounter Care Teams Rehabilitation Supervisor Relationship Specialty Start Date End Date Stephanie Pearson APNP [address] [place] [address] PCP - General NURSE PRACTITIONER 01/07/22 documented as of this encounter
--- OUTSIDE RECORDS SUMMARY | 2024-08-06 00:46 | XMS_ITS | Clinical Summary ---
Author Organization [facility] Address [address] [facility] [place] [address] Care Team Providers Care Breaker Layer Name Role Phone Morenita Horton MD Primary Care Provider [phone] Source Comments [facility],non-[facility] Affiliates and Associated Physician Practices is amultiple site organization consisting of ambulatory clinics and hospital sitesin [place], [place], [place] and [place]. This disclosure is being madepursuant to the Care Everywhere program and may not contain all information available regarding this patient. Last updated 18.[facility] Active Problems Problem Noted Date Diagnosed Date [...] Comments Blood Pressure 112/61 06/04/2015 1:22 PM PREDATORY ANIMAL TRAPPER Pulse 90 06/04/2015 1:22 PM PREDATORY ANIMAL TRAPPER Temperature 36.9 ??C (98.5 ??F) 06/04/2015 1:22 PM CS T Respiratory Rate 18 06/04/2015 1:22 PM PREDATORY ANIMAL TRAPPER Oxygen Saturation - - Inhaled Oxygen Concentration - - Weight 74.8 kg (164 lb 14.4 oz) 06/04/2015 1:22 PM PREDATORY ANIMAL TRAPPER Height 172.7 cm (5' 8 ) 06/04/2015 1:22 PM PREDATORY ANIMAL TRAPPER Body Mass Index 25.07 06/04/2015 1:22 PM PREDATORY ANIMAL TRAPPER Plan of Treatment Health Maintenance Due Date Last Done Comments PAP SMEAR 1990 HIV SCREENING 2005 HEPATITIS C SCREENING 02/05/2008 DTAP/TDAP/TD VACCINES (1 - Tdap) 2009 HEPATITIS B VACCINE (1 of 3 - 19+ 3-dose series) 2009 COVID-19 VACCINE (4 - 2023- season) 2024 06/10/2021, 10/03/2020, 09/05/2020 DEPRESSION SCREENING 07/24/2024 ZOSTER VACCINE (1 of 2) 02/10/2040 INFLUENZA VACCINE Completed 06/14/2024, , 06/11/2022, Additional history exists HIB VACCINE Aged Out No longer eligi ble based on patient's age to complete this topic HPV VACCINE Aged Out No longer eligi ble based on patient's age to complete this topic MENINGOCOCCAL (Group B) VACCINE Aged Out No longer eligible based on patient's age to complete this topic MENINGOCOCCAL VACCINE Aged Out No tao jose eligible based on patient's age to complete this topic PNEUMOCOCCAL VACCINE Aged Out No long er eligible based on patient's age to complete this topic Care Teams Breaker Layer Relationship Specialty Start Date End Date Morenita Horton MD [address] [place] [address] PCP - General 03/06/15
--- OUTSIDE RECORDS SUMMARY | 2024-08-06 00:46 | XMS_ITS | Encounter Summary ---
Author Organization [facility] Address [address] [place] [address]. [place], [place] [address] [place] [address] Care Team Providers Care Marketing Copywriter Name Role Phone Stephanie Pearson Primary Care Provider [phone]- [phone] Encounter Details Date Type Department Care Team (Late st Contact Info) Description 03/15/2023 8:00 AM CDT Laboratory Only [facility] Medical Group Family & Internal Medicine [facility] [address] [place] [address] Stephanie Pearson APNP [address] [place] [address] Social History Tobacco Use Types Packs/Day Years [...] on file Legal Sex Female 1:24 PM JUDICIAL REPORTER Gender Identity Female 08/05/2021 12:06 PM JUDICIAL REPORTER Sexual Orientation Straight 08/05/2021 12 :06 PM JUDICIAL REPORTER documented as of this encounter Progress Notes * Dagoberto Scott - 03/15/2023 8:00 AM CDTAddended by: DAGOBERTO SCOTT on: 03/15/2023 01:49 PM Modules accepted: Orders documented in this encounter Plan of Treatment Not on file documented as of this encounter Procedures Procedure Name Priority Date/Time Associated Diagnosis Comments COLLECTION VENOUS BLOOD VENIPUNCTURE Routine 03/15/2023 8:00 AM CDT PCOS (polycystic ovarian syndrome) Obesity (BMI 30-39.9) HEMOGLOBIN, GLYCOSYLATED Routine 03/15/2023 8:00 AM CDT PCOS (polycystic ovarian syndrome) Obesity (BMI 30-39.9) TESTOSTERONE, FREE & TOTAL Routine 03/15/2023 8:00 AM CDT PCOS (polycystic ovarian syndrome) INSULIN,TOTAL Routine 03/15/2023 8:00 AM CDT PCOS (polycystic ovarian syndrome) documented in this encounter Results * (ABNORMAL) TESTOSTERONE, FREE & TOTAL (03/15/2023 8:00 AM CDT) TESTOSTERONE TOTAL 102(H) 2 - 45 ng/dL [facility] Comment: For additional information, please refer to https://education.Givespark/faq/RBW118 (This link is being provided for informational/educational purposes only.) (Note) This test was developed and its analytical performance characteristics have been determined by [facility]. It has not been cleared or approved by the FDA. This assay has been validated pursuant to the CLIA regulations and is used for clinical purposes. TESTOSTERONE FREE 8.5(H) 0.1 - 6.4 pg/mL [employer] Comment: (Note) This test was developed and its analytical performance characteristics have been determined by [facility]. It has not been cleared or approved by the FDA. This assay has been validated pursuant to the CLIA regulations and is used for clinical purposes. [facility] [address] [place] [address],[address] [place] [address] David [place] MD 03/15/2023 8:00 AM CDT 03/16/2023 3:26 AM CDT Narrative Resulting Agency Comment Performing Organization Information: ?Site ID: [id number] ?Name: [employer] ?Address: [address] [place] [address], [address] [place], [place] [address] ?Director: David [place] MD Stephanie MALDONADO [facility] Final Resul t [facility] [address] [place] [address], [address] [place] [address], [place] * INSULIN,TOTAL (03/15/2023 8:00 AM CDT) Pathologist [facility] INSULIN 11.4 2.6 - 37.6 uIU/ML 03/16/2023 10:22 AM CDT [facility] Comment: ASSAY PERFORMED BY CHEMILUMINESCENCE METHODOLOGY USING SIEMENS [employer] XPT REAGENT. PATIENT RESULTS DETERMINED BY ASSAYS USING DIFFERENT MANUFACTURERS FOR METHODS MAY NOT BE COMPARABLE. 03/15/2023 8:00 AM CDT Stephanie MALDONADO [facility]ORAT[facility] Final Resul t Performing Organization Address City/[facility] Co de Phone Number [facility] [address] [place] [address], [place] [phone] * HEMOGLOBIN, GLYCOSYLATED (03/15/2023 8:00 AM CDT) [facility] HGB A1C 4.6 4.5 - 6.2 % 03/15/2023 2:51 PM CDT [facility] ESTIMATED AVG GLUCOSE 85 74 - 106 MG/DL 03/15/2023 2:51 PM CDT [facility] 03/15/2023 8:00 AM CDT Stephanie MALDONADO LABORATORY Final Resul t Performing Organization Address City/[facility] Co de Phone Number [facility] [address] [place] [address], [place] [phone] documented in this encounter Visit Diagnoses Diagnosis PCOS (polycystic ovarian syndrome) Polycystic ovaries Obesity (BMI 30-39.9) Obesity, unspecified documented in this encounter Additional Health Concerns Assessment Noted Time PHQ-9 Depression Total Score: 9 06/22/20 22 11:43 AM JUDICIAL REPORTER documented as of this encounter Care Teams Marketing Copywriter Relationship Specialty Start Date End Date Stephanie Pearson APNP [address] [place] [address] PCP - General NURSE PRACTITIONER 01/07/22 documented as of this encounter
--- OUTSIDE RECORDS SUMMARY | 2024-08-06 00:46 | XMS_ITS | Encounter Summary ---
Author Organization [facility] Address [address] [place] [address]. [place] [id number] [place] [address] Care Team Providers Care Pulp Maker Name Role Phone Stephanie Pearson Primary Care Provider [phone]- [phone] Reason for Visit * Reason Onset Date Comments Lab Results 05/07/2024 Encounter Details Date Type Department Care Team (Late st Contact Info) Description 05/07/2024 Telephone [facility] Medical Group Family & Internal Medicine [facility] [address] [place] [address] Stephanie Pearson APNP [address] [place] [address] Lab Results Social History Tobacco Use Types [...] on file Legal Sex Female 1:24 PM PRODUCT STRATEGY DIRECTOR Gender Identity Female 08/05/2021 12:06 PM PRODUCT STRATEGY DIRECTOR Sexual Orientation Straight 08/05/2021 12 :06 PM PRODUCT STRATEGY DIRECTOR documented as of this encounter Progress Notes * Velma Abraham RN - 05/07/2024 11:06 AM CDT Spoke with patient and informed her of her lab results and recommendations per provider. Patient verbalized understanding of results. Opportunity given for all questions to be answered, no further needs voiced at this time. LL-05/07/24 documented in this encounter Plan of Treatment Not on file documented as of this encounter Visit Diagnoses Not on filedocumented in this encounter Additional Health Concerns Assessment Noted Time PHQ-9 Depression Total Score: 9 06/22/20 22 11:43 AM PRODUCT STRATEGY DIRECTOR documented as of this encounter Care Teams Pulp Maker Relationship Specialty Start Date End Date Stephanie Pearson APNP [address] [place] [address] PCP - General NURSE PRACTITIONER 01/07/22 documented as of this encounter
--- OUTSIDE RECORDS SUMMARY | 2024-08-06 00:46 | XMS_ITS | Encounter Summary ---
Author Organization [facility] Address [address] [place] [address]. [place], [place] [address] [place] [address] Care Team Providers Care Ham Boner Name Role Phone Stephanie Pearson Primary Care Provider [phone]- [phone] Encounter Details Date Type Department Care Team (Latest Contact Info) Description 03/15/2023 - 03/15/2023 11:59 PM T Hospital Encounter [facility] [address] [place] [address] Stephanie Pearson APNP [facility] [place], [place] [id number] Discharge Disposition: Home or Self Care (Routine [...] on file Legal Sex Female 1:24 PM CLOTH BLEACHING RANGE OPERATOR CHIEF Gender Identity Female 08/05/2021 12:06 PM CLOTH BLEACHING RANGE OPERATOR CHIEF Sexual Orientation Straight 08/05/2021 12 :06 PM CLOTH BLEACHING RANGE OPERATOR CHIEF documented as of this encounter Medications at Time of Discharge multi vitamin/minerals (THERA-M ENHANCED) tablet Take 1 tablet by mouth daily. buPROPion XL (WELLBUTRIN XL) 300 MG 24 hr tabletIndications :Anxiety Take 1 tablet (300 mg total) by mouth every morning. Patient must be seen for further refills 90 tablet 1 11/25/2022 04/19/2023 documented as of this encounter Plan of Treatment Not on file documented as of this encounter Visit Diagnoses Not on filedocumented in this encounter Additional Health Concerns Assessment Noted Time PHQ-9 Depression Total Score: 9 06/22/20 22 11:43 AM CLOTH BLEACHING RANGE OPERATOR CHIEF documented as of this encounter Care Teams Ham Boner Relationship Specialty Start Date End Date Stephanie Pearson APNP [address] [place] [address] PCP - General NURSE PRACTITIONER 01/07/22 documented as of this encounter
--- OUTSIDE RECORDS SUMMARY | 2024-08-06 00:46 | XMS_ITS | Encounter Summary ---
Author Organization [facility] Address [address] [place] [address]. [place] [address] Care Team Providers Care Assistive Technology Trainer Name Role Phone Unavailable Primary Care Provider Unavailabl e Encounter Details Date Type Department Care Team (Latest Contact Info) Description 08/05/2021 Travel Social History Tobacco Use Types Packs/Day Years Used Date Smoking Tobacco: Never Assessed Comments Unknown Sex and Gender Information Value Date Recorded Sex Assigned at Not on file Legal Sex Female 1:24 PM RESERVATIONS AGENT Gender Identity Female 08/05/2021 12:06 PM RESERVATIONS AGENT Sexual Orientation Straight 08/05/2021 12 :06 PM RESERVATIONS AGENT COVID-19 Exposure Response Date Recorded In the last month, have you been in contact with someone who was confirmed or suspected to have Coronavirus / COVID-19? No / Unsure 08/05/2021 9:10 AM RESERVATIONS AGENT documented as of this encounter Plan of Treatment Not on file documented as of this encounter Visit Diagnoses Not on filedocumented in this encounter
--- OUTSIDE RECORDS SUMMARY | 2024-08-06 00:46 | XMS_ITS | Encounter Summary ---
Author Organization [facility] Address [address] [place] [address]. [place] [address] Care Team Providers Care Subassembly Assembler Name Role Phone Stephanie Pearson Dunia MALDONADO Primary Care Provider [phone] Reason for Visit * Reason Comments Ultrasound (SCAN) Encounter Details Date Type Department Care Team ([facility] Contact Info) Description 06/10/2024 Scan [facility] INFO SRVCS Scanned, Doc Med Group Ultrasound (SCAN) Social History Tobacco Use Types Packs/Day [...] on file Legal Sex Female 1:24 PM SPECIAL DELIVERY CLERK Gender Identity Female 08/05/2021 12:06 PM SPECIAL DELIVERY CLERK Sexual Orientation Straight 08/05/2021 12 :06 PM SPECIAL DELIVERY CLERK documented as of this encounter Plan of Treatment Not on file documented as of this encounter Procedures Procedure Name Priority Date/Time Associated Diagnosis Comments ULTRASOUND GENERIC (SCAN ORDER) 06/10/2024 documented in this encounter Results * ULTRASOUND GENERIC (SCAN ORDER) (06/10/2024) Anatomical Region Laterality Modality Other 06/10/2024 us Doc Med Group Scanned SCANNING Final Resu lt documented in this encounter Visit Diagnoses Not on filedocumented in this encounter Additional Health Concerns Assessment Noted Time PHQ-9 Depression Total Score: 9 11/30/20 22 11:43 AM SPECIAL DELIVERY CLERK documented as of this encounter Care Teams Subassembly Assembler Relationship Specialty Start Date End Date Stephanie Pearson APNP [address] [place] [address] PCP - General NURSE PRACTITIONER 01/07/22 documented as of this encounter
--- OUTSIDE RECORDS SUMMARY | 2024-08-06 00:46 | XMS_ITS | Encounter Summary ---
Author Organization [facility] Address [address] [place] [address]. [address] [address] Care Team Providers Care Property Insurance Claims Examiner Name Role Phone Stephanie Pearson Primary Care Provider [phone] Reason for Visit * Reason Onset Date Comments Follow Up Call 09/01/2022 Encounter Details Date Type Department Care Team (Late st Contact Info) Description 09/01/2022 Telephone [facility] Medical Group Family & Internal Medicine [facility] [address] [place] [address] Stephanie Pearson APNP [address] [place] [address] Follow Up Call Social History Tobacco Use Types Packs/Day Years [...] on file Legal Sex Female 1:24 PM REGULATORY ATTORNEY Gender Identity Female 08/05/2021 12:06 PM REGULATORY ATTORNEY Sexual Orientation Straight 08/05/2021 12 :06 PM REGULATORY ATTORNEY documented as of this encounter Progress Notes * Xiomy Marroquin - 09/01/2022 2:51 PM CST Pt is wanting to inform you that the Bupropion is working good for her. She does not have any complaints. LATORY ATTORNEY documented in this encounter Plan of Treatment Not on file documented as of this encounter Visit Diagnoses Not on filedocumented in this encounter Additional Health Concerns Assessment Noted Time PHQ-9 Depression Total Score: 9 06/22/20 22 11:43 AM REGULATORY ATTORNEY documented as of this encounter Care Teams Property Insurance Claims Examiner Relationship Specialty Start Date End Date Stephanie Pearson APNP [address] [place] [address] PCP - General NURSE PRACTITIONER 01/07/22 documented as of this encounter
--- OUTSIDE RECORDS SUMMARY | 2024-08-06 00:46 | XMS_ITS | Encounter Summary ---
Author Organization [facility] Address [address] [place] [address]. [place], [place] [address] [place] [address] Care Team Providers Care Marriage And Family Counselor Name Role Phone Stephanie Pearson Primary Care Provider [phone]- [phone] Encounter Details Date Type Department Care Team (Latest Contact Info) Description 05/22/2024 Scan [facility] Scanned, [...] on file Legal Sex Female 1:24 PM VP PRODUCT MARKETING Gender Identity Female 08/05/2021 12:06 PM VP PRODUCT MARKETING Sexual Orientation Straight 08/05/2021 12 :06 PM VP PRODUCT MARKETING documented as of this encounter Plan of Treatment Not on file documented as of this encounter Visit Diagnoses Not on filedocumented in this encounter Additional Health Concerns Assessment Noted Time PHQ-9 Depression Total Score: 9 06/22/20 22 11:43 AM VP PRODUCT MARKETING documented as of this encounter Care Teams Marriage And Family Counselor Relationship Specialty Start Date End Date Stephanie Pearson APNP [address] [place] [address] PCP - General NURSE PRACTITIONER 01/07/22 documented as of this encounter
--- OUTSIDE RECORDS SUMMARY | 2024-08-06 00:46 | XMS_ITS | Encounter Summary ---
Author Organization [facility] Address [address] [facility] [place] [address] Care Team Providers Care Print Production Manager Name Role Phone Morenita Horton MD Primary Care Provider [phone] Encounter Details Date Type Department Care Team (Latest Contact Info) Description 06/04/2015 Hospital Outpatient Visit [facility] Default Department Morenita Horton MD [address] [facility] [address] [place] [address] Discharge Disposition: Home or Self Care Social History Tobacco Use Types Packs/Day Years Used Date Smoking Tobacco: Never Smokeless Tobacco: Never Alcohol Use Standard Drinks/Week Comments Yes 0 (1 standard drink = 0.6 oz pur e alcohol) Sex and Gender Information Value Date Recorded Sex Assigned at Not on file Gender Identity Not on file Sexual Orientation Not on file documented as of this encounter Plan of Treatment Not on file documented as of this encounter Visit Diagnoses Not on filedocumented in this encounter Care Teams Print Production Manager Relationship Specialty Start Date End Date Morenita Horton MD [address] [facility] [address] [place] [address] PCP - General 03/06/15 documented as of this encounter
--- OUTSIDE RECORDS SUMMARY | 2024-08-06 00:46 | XMS_ITS | Encounter Summary ---
Author Organization [facility] Address [address] [place] [address]. [address] [address] Care Team Providers Care Calender Feeder Name Role Phone Lili, Stephanie MALDONADO Primary Care Provider [phone]- [phone] Reason for Visit * Reason Comments Lab (SCAN) Encounter Details Date Type Department Care Team (Latest Contact Info) Description 03/15/2023 Scan [facility] SRV[facility] Scanned, Doc Med Group Lab (SCAN) Social History Tobacco Use Types Packs/Day Years Used Date Smoking Tobacco: Never Smokeless Tobacco: Never Alcohol Use Standard Drinks/Week Comments Yes 0 (1 standard drink = 0.6 oz pur e alcohol) once a month, wine PHQ-2 Answer Date Recorded Patient Health Questionnaire-2 Score 0 07/28/2023 Comments Unknown Sex and Gender Information Value Date Recorded Sex Assigned at Not on file Legal Sex Female 1:24 PM MUTUEL CASHIER Gender Identity Female 08/05/2021 12:06 PM MUTUEL CASHIER Sexual Orientation Straight 08/05/2021 12 :06 PM MUTUEL CASHIER documented as of this encounter Plan of Treatment Not on file documented as of this encounter Procedures Procedure Name Priority Date/Time Associated Diagnosis Comments OUTSIDE LAB (SCAN ORDER) 03/15/2023 documented in this encounter Results * OUTSIDE LAB (SCAN) (03/15/2023) 03/15/2023 us Doc Med Group Scanned SCANNING Final Resu lt documented in this encounter Visit Diagnoses Not on filedocumented in this encounter Additional Health Concerns Assessment Noted Time PHQ-9 Depression Total Score: 9 06/22/20 22 11:43 AM MUTUEL CASHIER documented as of this encounter Care Teams Calender Feeder Relationship Specialty Start Date End Date Stephanie Pearson APNP [address] [place] [address] PCP - General NURSE PRACTITIONER 01/07/22 documented as of this encounter
--- OUTSIDE RECORDS SUMMARY | 2024-08-06 00:46 | XMS_ITS | Encounter Summary ---
Author Organization [facility] Address [address] [place] [address]. [place] [id number] [place] [address] Care Team Providers Care International Trade Teacher Name Role Phone Stephanie Pearson Primary Care Provider [phone]- [phone] Reason for Visit * Reason Comments GERD Encounter Details Date Type Department Care Team ([facility] st Contact Info) Description 01/07/2022 8:20 AM CDT Office Visit [facility] Family & Internal [facility] [address] [place] [address] Stephanie Pearson APNP [address] [place], [place] [id number] GERD Social History Tobacco Use Types Packs/Day Years [...] on file Legal Sex Female 1:24 PM FLIGHT LINE MECHANIC Gender Identity Female 08/05/2021 12:06 PM FLIGHT LINE MECHANIC Sexual Orientation Straight 08/05/2021 12 :06 PM FLIGHT LINE MECHANIC COVID-19 Exposure Response Date Recorded In the last 10 days, have yo u been in contact with someone who was confirmed or suspected to have Coronavirus/COVID-19? No / Unsure 01/07/2022 7:55 AM CDT documented as of this encounter Last Filed Vital Signs Vital Sign Reading Time Taken Comments Blood Pressure 118/72 01/07/2022 8:10 AM CDT Pulse 71 01/07/2022 8:10 AM CDT Temperature 36.7 ??C (98.1 ??F) 01/07/2022 8:10 AM CD T Respiratory Rate 12 01/07/2022 8:10 AM CDT Oxygen Saturation 98% 01/07/2022 8:10 AM CDT Inhaled Oxygen Concentration - - Weight 85.3 kg (188 lb) 01/07/2022 8:10 AM CDT Height 170.2 cm (5' 7 ) 01/07/2022 8:10 AM CDT Body Mass Index 29.44 01/07/2022 8:10 AM CDT documented in this encounter Progress Notes * Dimitri Sanz MA - 01/07/2022 8:20 AM CDTAddended by: DIMITRI SANZ on: 01/07/2022 11:42 AM Modules accepted: Orders * JOEL Wiggins - 01/07/2022 8:20 AM CDT Images from the original note were not included. [facility]ILY [facility] INTERNAL MEDICINE OFFICE VISIT Reason for Visit: No chief complaint on file. History of Present Illness: 31 yo female here today to establish care as a new pt. She is , has one child. 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 She is not a smoker, drinks alcohol socially and denies any illicit drug use. Chronic health conditions: PCOS - irregular periods. Sees PIPE ASSEMBLY WORKER for this. Has tried metformin---did not like. Periods are irregular, does not have very often. Hx of renal stones - sees urology. Labs: last set of labs was 2 years ago. Cervical cancer screening: last pap was one year ago and was OK. Immunizations: Last tdap---was 5 years. She has been having some issues with GERD---worsened over the last month. She has had 3 episodes over the last month of severe epigastric pain, vomiting--followed by GERD for 3 days. She tries to eatvery clean, but if she strays--will trigger symptoms. Epigastric pain resolves after vomiting. She denies any blood in her vomit and has not noticed any bloody or black stools. When she is eating clean---she has no issues. She treats the flares with pepcid and Tums. She is not otherwise treating with meds. She has not been told she has a hiatal hernia. She said that after she eats if she bends over she can feel food moving up or if she lies down too quickly after eating a can develop some reflux type symptoms. She has had imaging on her abdomen before and has never been told she has any type of hernia. ROS: Review of Systems Constitutional: Negative for chills, fever and malaise/fatigue. HENT: Negative for congestion and hearing loss. Eyes: Negative for blurred vision and double vision. Respiratory: Negative for cough and shortness of breath. Cardiovascular: Negative for chest pain and palpitations. Gastrointestinal: Positive for abdominal pain, heartburn and vomiting. Negative for blood in stool,constipation, diarrhea, melena and nausea. Genitourinary: Negative for dysuria and urgency. Musculoskeletal: Negative for myalgias. Skin: Negative for itching and rash. Neurological: Negative for dizziness and headaches. Psychiatric/Behavioral: Negative for depression. The patient is not nervous/anxious. Medications: Current Outpatient Medications: ??? famotidine 20 MG tablet, Take 1 tablet (20 mg total) by mouth 2 (two) times daily., Disp: 180 tablet, Rfl: 3 ??? multi vitamin/minerals tablet, Take 1 tablet by mouth daily., Disp: , Rfl: ??? omeprazole 20 MG capsule, Take 1 capsule (20 mg total) by mouth daily., Disp: 30 capsule, Rfl: 0 Allergies: No Known Allergies Medical History: Past Medical History: Diagnosis Date ??? Kidney stones history of kidney stones ??? PCOS (polycystic ovarian syndrome) Surgical History: Past Surgical History: Procedure Laterality Date ??? LITHOTRIPSY Left 03/24/2003 Social History: Social History Socioeconomic History ??? Marital status: Tobacco Use ??? Smoking status: Never Smoker ??? Smokeless tobacco: Never Used Vaping Use ??? Vaping Use: Never used [...] regular rhythm. Heart sounds: Normal heart sounds. No murmur heard. Pulmonary: Effort: Pulmonary effort is normal. No [...] Affect: Mood and affect normal. Filed Vitals: 01/07/22 0810 BP: 118/72 Pulse: 71 Resp: 12 Temp: 98.1 ??F (36.7 ??C) SpO2: 98% Weight: 85.3 kg (188 lb) Height: 5' 7 (1.702 m) Labs: Labs Reviewed Diagnoses/Impression: 1. PCOS (polycystic ovarian syndrome) Chronic TSH W/REFLEX URINALYSIS WI REFLEX TO CULTURE COMPREHENSIVE METABOLIC PANEL VENIPUNC ARM DRAW 2. Gastroesophageal reflux disease without esophagitis CBC W/DIFF AUTOMATED VENIPUNC ARM DRAW omeprazole 20 MG capsule famotidine 20 MG tablet 3. General medical exam CBC W/DIFF AUTOMATED LIPID PANEL TSH W/REFLEX URINALYSIS WI REFLEX TO CULTURE COMPREHENSIVE METABOLIC PANEL VENIPUNC ARM DRAW 4. BMI 29.0-29.9,adult CBC W/DIFF AUTOMATED LIPID PANEL TSH W/REFLEX URINALYSIS WI REFLEX TO CULTURE COMPREHENSIVE METABOLIC PANEL VENIPUNC ARM DRAW Recommendations and Plan: 1. PCOS (polycystic ovarian syndrome) - TSH W/REFLEX; Future - URINALYSIS WI REFLEX TO CULTURE; Future - COMPREHENSIVE METABOLIC PANEL; Future - VENIPUNC ARM DRAW Stable. Continue follow-up with PIPE ASSEMBLY WORKER. 2. Gastroesophageal reflux disease without esophagitis - CBC W/DIFF AUTOMATED; Future - VENIPUNC ARM DRAW - omeprazole 20 MG capsule; Take 1 capsule (20 mg total) by mouth daily. Dispense: 30 capsule; Refill: 0 - famotidine 20 MG tablet; Take 1 tablet (20 mg total) by mouth 2 (two) times daily. Dispense: 180 tablet; Refill: 3 Symptoms suggestive of reflux. Would like to have her take a couple weeks of omeprazole first and then switch to Pepcid 20 mg twice daily. Dietary alterations discussed. Patient will let me know if this does not improve her symptoms. Abdominal exam was unremarkable today. 3. General medical exam - CBC W/DIFF AUTOMATED; Future - LIPID PANEL; Future - TSH W/REFLEX; Future - URINALYSIS WI REFLEX TO CULTURE; Future - COMPREHENSIVE METABOLIC PANEL; Future - VENIPUNC ARM DRAW Immunization up-to-date. Cervical cancer screening up-to-date Routine fasting labs ordered today. 4. BMI 29.0-29.9,adult - CBC W/DIFF AUTOMATED; Future - LIPID PANEL; Future - TSH W/REFLEX; Future - URINALYSIS WI REFLEX TO CULTURE; Future - COMPREHENSIVE METABOLIC PANEL; Future - VENIPUNC ARM DRAW Orders Placed This Encounter ??? VENIPUNC ARM DRAW ??? CBC W/DIFF AUTOMATED ??? LIPID PANEL ??? TSH W/REFLEX ??? URINALYSIS WI REFLEX TO CULTURE ??? COMPREHENSIVE METABOLIC PANEL ??? multi vitamin/minerals tablet ??? omeprazole 20 MG capsule ??? famotidine 20 MG tablet Cannot display discharge medications since this is not an admission. PCP: JOEL Wiggins 01/07/2022 Cosigned by Aba Gatica MD at 01/10/2022 11:08 PM CDT documented in this encounter Plan of Treatment Not on file documented as of this encounter Procedures Procedure Name Priority Date/Time Associated Diagnosis Comments URINALYSIS WI REFLEX TO CULTURE Routine 01/07/2022 11:42 AM CDT PCOS (polycystic ovarian syndrome) General medical exam BMI 29.0-29.9,adult TSH W/REFLEX Routine 01/07/2022 11:42 AM CDT PCOS (polycystic ovarian syndrome) General medical exam BMI 29.0-29.9,adult COMPREHENSIVE METABOLIC PANEL Routine 01/07/2022 11:42 AM CDT PCOS (polycystic ovarian syndrome) General medical exam BMI 29.0-29.9,adult LIPID PANEL Routine 01/07/2022 11:42 AM CDT General medical exam BMI 29.0-29.9,adult CBC W/DIFF AUTOMATED Routine 01/07/2022 11:42 AM CDT Gastroesophageal reflux disease without esophagitis General medical exam BMI 29.0-29.9,adult COLLECTION VENOUS BLOOD VENIPUNCTURE Routine 01/07/2022 9:00 AM CDT PCOS (polycystic ovarian syndrome) Gastroesophageal reflux disease without esophagitis General medical exam BMI 29.0-29.9,adult documented in this encounter Results * COMPREHENSIVE METABOLIC PANEL (01/07/2022 11:42 AM CDT) SODIUM S/P/B 140 136 - 145 MMOL/L 01/07/2022 3:38 PM CDT [facility] POTASSIUM S/P/B 4.3 3.5 - 5.1 MMOL/L 01/07/2022 3:38 PM CDT [facility] CHLORIDE S/P/B 104 98 - 107 MMOL/L 01/07/2022 3:38 PM CDT -[facility] CO2 29.8 21 - 32 MMOL/L 01/07/2022 3:38 PM CDT [facility] GLUCOSE 85 70 - 99 MG/DL 01/07/2022 3:38 PM CDT MG-[facility] BUN 10 7 - 18 MG/DL 01/07/2022 3:38 PM T MG-[facility] CREATININE S/P/B 0.63 0.55 - 1.02 MG/DL 01/07/2022 3:38 PM T MG-[facility] CALCIUM S/P/B 8.8 8.4 - 10.5 MG/DL 01/07/2022 3:38 PM CDT [facility] BILIRUBIN TOTAL S/P/B 0.7 0.2 - 1.0 MG/DL 01/07/2022 3:38 PM T [facility] ALKALINE PHOSPHATASE S/P/B 94 37 - 98 U/L 01/07/2022 3:38 PM T -[facility] AST 15 15 - 37 U/L 01/07/2022 3:38 PM CDT [facility] ALT 27 14 - 59 U/L 01/07/2022 3:38 PM T MG-[facility] TOTAL PROTEIN S/P/B 7.3 6.4 - 8.2 G/DL 01/07/2022 3:38 PM T [facility] ALBUMIN S/P/B 4.3 3.4 - 5.0 G/DL 01/07/2022 3:38 PM T [facility] ANION GAP 6.2 5 - 15 MMOL/L 01/07/2022 3:38 PM T MG-[facility] Comment:REFERENCE RANGE NOT ESTABLISHED OSMOLALITY (CALC) 288 MOSM/KG 022 3:38 PM CDT [facility] Comment:REFERENCE RANGE NOT ESTABLISHED GFR ESTIMATE >90 >90 ML/MIN/1. 73 M2 01/07/2022 3:38 PM T [facility] GFR NOTES GFR REFERENCE S: 01/07/2022 3:38 PM T [facility] Comment: THE ESTIMATED GFR IS CALCULATED USING THE 2020 CKD-EPI EQUATION. THE FOLLOWING CATEGORIES FOR GRADING RENAL FUNCTION ARE RECOMMENDED BY THE INTERNATIONAL SOCIETY OF NEPHROLOGY (KDIGO 2012 CLINICAL PRACTICE GUIDELINE). G1,NORMAL OR HIGH: >89 ml/min/1.73 m2 G2,MILDLY DECREASED: 60-89 ml/min/1.73 m2 G3A,MILDLY TO MODERATELY DECREASED: 45-59 ml/min/1.73 m2 G3B,MODERATELY TO SEVERELY DECREASED: 30-44 ml/min/1.73 m2 G4,SEVERELY DECREASED: 15-29 ml/min/1.73 m2 G5,KIDNEY FAILURE: <15 ml/min/1.73 m2 01/07/2022 11:4 2 AM CDT us Stephanie MALDONADO LABORATORY Final Resul t [facility] [address] [place] [address], * (ABNORMAL) URINALYSIS WI REFLEX TO CULTURE (01/07/2022 11:42 AM CDT) COLOR (U) YELLOW 01/07/2022 3:12 PM CDT [facility] TRANSPARENCY CLEAR CLEAR 01/07/2022 3:12 PM CDT [facility] SPECIFIC GRAVITY (U) 1.015 1.003 - 1.040 01/07/2022 3:12 PM CDT [facility] U PH 7.5 5.0 - 9.0 01/07/2022 3:12 PM CDT [facility] PROTEIN (U) NEGATIVE NEGATIVE 01/07/2022 3:12 PM CDT [facility] URINE GLUCOSE NEGATIVE NEGATIVE 01/07/2022 3:12 PM CDT [facility] KETONES MG/DL (U) NEGATIVE NEGATIVE 01/07/2022 3:12 PM CDT [facility] BILIRUBIN (U) NEGATIVE NEGATIVE 01/07/2022 3:12 PM CDT [facility] BLOOD (U) NEGATIVE NEGATIVE 01/07/2022 3:12 PM CDT [facility] UROBILINOGEN 0.2 0.0 - 2.0 EU/DL 01/07/2022 3:12 PM CDT [facility] NITRITES NEGATIVE NEGATIVE 01/07/2022 3:12 PM CDT [facility] LEUKOCYTES (U) NEGATIVE NEGATIVE 01/07/2022 3:12 PM CDT [facility] REFLEX URINE CULTURE: CULTURE IS NOT INDICATED 01/07/2022 3:12 PM CDT [facility] RBC/HPF 0-3 0 - 3 /HPF 01/07/2022 3:12 PM CDT [facility] WBC/HPF 0-3 0 - 3 /HPF 01/07/2022 3:12 PM CDT [facility] EPI/HPF 4-9 /HPF 01/07/2022 3:12 PM CDT [facility] BACTERIA (U) TRACE(A) NONE SEEN 01/07/2022 3:12 PM CDT [facility] URINE SPECIMEN OBTAINED BY CLEAN CATCH PROCEDURE / Unknown 01/07/2022 11:42 AM CDT Stephanie MALDONADO URINE ORDERABLES Final Resu lt [facility] [address] [place] [address], * TSH W/REFLEX (01/07/2022 11:42 AM CDT) TSH 1.697 0.358 - 3.740 uIU/ML 01/07/2022 3:38 PM CDT [facility] 01/07/2022 11:4 2 AM CDT Stephanie MALDONADO LABORATORY Final Resul t [facility] [address] [place] [address], * (ABNORMAL) LIPID PANEL (01/07/2022 11:42 AM CDT) CHOLESTEROL 215(H) <200 MG/DL 01/07/2022 3:38 PM CDT [facility] TRIGLYCERIDES 102 <150 MG/DL 01/07/2022 3:38 PM CDT [facility] HDL 47 >40 MG/DL 01/07/2022 3:38 PM CDT [facility] LDL-C 148(H) <100 MG/DL 01/07/2022 3:38 PM CDT [facility] VLDL CALCULATION 20 5 - 28 MG/DL 01/07/2022 3:38 PM CDT [facility] CHOL/HDL RATIO 4.6(H) 0.0 - 4.0 01/07/2022 3:38 PM CDT [facility] LDL/HDL 3.1(H) 0.41 - 2.13 01/07/2022 3:38 PM CDT [facility] NON HDL CHOLESTEROL 168(H) <140 MG/DL 01/07/2022 3:38 PM CDT [facility] 01/07/2022 11:4 2 AM CDT Stephanie MALDONADO LABORATORY Final Resul t [facility] [address] [place] [address], [place] [phone] * CBC W/DIFF AUTOMATED (01/07/2022 11:42 AM CDT) WBC 4.2 4.0 - 10.8 x10'3/uL 01/07/2022 4:03 PM CDT [facility] RBC 5.04 4.10 - 5.40 x10'6/uL 01/07/2022 4:03 PM CDT [facility] HGB 14.9 12.0 - 16.0 G/DL 01/07/2022 4:03 PM CDT [facility] HCT 43.4 36.0 - 47.0 % 01/07/2022 4:03 PM CDT [facility] MCV 86.1 78.0 - 100.0 FL 01/07/2022 4:03 PM CDT [facility] MCH 29.6 27.0 - 31.0 PG 01/07/2022 4:03 PM CDT [facility] MCHC 34.3 33.0 - 36.0 G/DL 01/07/2022 4:03 PM CDT [facility] RDW 12.5 11.5 - 14.5 % 01/07/2022 4:03 PM CDT [facility] PLT 328 150 - 350 x10'3/uL 01/07/2022 4:03 PM CDT [facility] MPV 10.3 7.4 - 10.4 FL 01/07/2022 4:03 PM T [facility] DIFFERENTIAL TYPE AUTOMATED DIFFERENTIAL 01/07/2022 4:04 PM CDT [facility] NEUTROPHILS % 56.2 % 01/07/2022 4:04 PM CDT [facility] LYMPHOCYTES % 36.9 % 01/07/2022 4:04 PM CDT [facility] MONOCYTES % 5.5 % 01/07/2022 4:04 PM CDT [facility] EOSINOPHILS % 0.7 % 01/07/2022 4:04 PM CDT [facility] BASOPHILS % 0.7 % 01/07/2022 4:04 PM CDT [facility] IMMATURE GRANS % 0.0 % 01/07/2022 4:04 PM CDT [facility] ABS. NEUTROPHILS 2.34 1.60 - 8.30 x10'3/uL 01/07/2022 4:04 PM CDT [facility] ABS. LYMPHOCYTES 1.54 0.80 - 4.70 x10'3/uL 01/07/2022 4:04 PM CDT [facility] ABS. MONOCYTES 0.23 0.00 - 1.50 x10'3/uL 01/07/2022 4:04 PM CDT [facility] ABS. EOSINOPHILS 0.03 0.00 - 0.40 x10'3/uL 01/07/2022 4:04 PM CDT [facility] ABS. BASOPHILS 0.03 0.00 - 0.20 x10'3/uL 01/07/2022 4:04 PM CDT [facility] ABS. IMMATURE GRANULOCYTES 0.00 0.00 - 0.03 x10'3/uL 01/07/2022 4:04 PM CDT [facility] 01/07/2022 11:4 2 AM CDT Stephanie MALDONADO LABORATORY Final Resul t [facility] [address] [place] [address], [place] [phone] documented in this encounter Visit Diagnoses Diagnosis PCOS (polycystic ovarian syndrome)- Primary Polycystic ovaries Gastroesophageal reflux disease without esophagitis Esophageal reflux General medical exam Unspecified general medical examination BMI 29.0-29.9,adult Body Mass Index 29.0-29.9, adult documented in this encounter Additional Health Concerns Assessment Noted Time PHQ-9 Depression Total Score: 3 01/08/20 22 9:13 AM CDT documented as of this encounter Care Teams International Trade Teacher Relationship Specialty Start Date End Date Stephanie Pearson APNP [facility] [place] [address] PCP - General NURSE PRACTITIONER 01/07/22 documented as of this encounter
--- OUTSIDE RECORDS SUMMARY | 2024-08-06 00:46 | XMS_ITS | Encounter Summary ---
Author Organization [facility] Address [address] [place] [address]. [place], [place] [id number] [place] [id number] Care Team Providers Care Naprapath Name Role Phone Stephanie Pearson Primary Care Provider [phone]- [phone] Encounter Details Date Type Department Care Team (Latest Contact Info) Description 09/07/2023 Scan [facility] Scanned, Doc [...] on file Legal Sex Female 1:24 PM STRUCTURAL STEEL ENGINEER Gender Identity Female 08/05/2021 12:06 PM STRUCTURAL STEEL ENGINEER Sexual Orientation Straight 08/05/2021 12 :06 PM STRUCTURAL STEEL ENGINEER documented as of this encounter Plan of Treatment Not on file documented as of this encounter Visit Diagnoses Not on filedocumented in this encounter Additional Health Concerns Assessment Noted Time PHQ-9 Depression Total Score: 9 06/22/20 22 11:43 AM STRUCTURAL STEEL ENGINEER documented as of this encounter Care Teams Naprapath Relationship Specialty Start Date End Date Stephanie Pearson APNP [address] [place] [address] PCP - General NURSE PRACTITIONER 01/07/22 documented as of this encounter
--- OUTSIDE RECORDS SUMMARY | 2024-08-06 00:46 | XMS_ITS | Encounter Summary ---
Author Organization [facility] Address [address] [place] [address]. [place] [id number] [place] [address] Care Team Providers Care Dermatology Nurse Practitioner Name Role Phone Stephanie Pearson Primary Care Provider [phone] Reason for Visit * Reason Comments Anxiety Go over medication Encounter Details Date Type Department Care Team (Late st Contact Info) Description 08/01/2022 12:00 PM LOZENGE DOUGH MIXER Telemedicine [facility] Family & Internal Medicine [place] [address] [place] [address] Stephanie Pearson APNP [address] [place], [place] [id number] Anxiety (Go over medication ) Social History Tobacco Use Types Packs/Day Years [...] on file Legal Sex Female 1:24 PM LOZENGE DOUGH MIXER Gender Identity Female 08/05/2021 12:06 PM LOZENGE DOUGH MIXER Sexual Orientation Straight 08/05/2021 12 :06 PM LOZENGE DOUGH MIXER COVID-19 Exposure Response Date Recorded In the last 10 days, have yo u been in contact with someone who was confirmed or suspected to have Coronavirus/COVID-19? Unable to assess 08/01/2022 7:10 AM LOZENGE DOUGH MIXER documented as of this encounter Progress Notes * JOEL Wiggins - 08/01/2022 12:00 PM CST Images from the original note were not included. [facility] OFFICE VISIT I introduced and identified myself, received verbal consent from the patient to proceed with this video visit and made the patient aware that the same confidentiality and information security specialist practices apply. The patient joined the video visit from Home. I completed the virtual visit from Home. [facility] clinical staff helped with this visit MA: Bibi. Total Time Spent in Minutes: 10 Reason for Visit: Anxiety (Go over medication ) History of Present Illness: 32-year-old female presents today via video visit to follow-up on her anxiety and to follow up on her cholesterol. At her last visit with me she was started on bupropion 150 mg once daily. Overall, she feels the bupropion helped. She is tolerating the 150 mg dose well with no bothersome side effects. She has not had any issues sleeping, has not noticed any heart palpitations, lingering GI symptoms. Medication did not make depression symptoms any worse and she has no thoughts of wanting to hurt her self. She does feel, however, that an increase in her dose would be helpful and at this is a possibility she would like to do so. She had some labs drawn recently specifically cholesterol. Total cholesterol was found to be elevated along with triglycerides and LDL. HDL was okay at 41. She is not currently medicated for elevatedlipids. We will discuss dietary and lifestyle changes that will be conducive to lowering her cholesterol today. ROS: Review of Systems Constitutional: Negative for chills and fever. Respiratory: Negative for cough and shortness of breath. Cardiovascular: Negative for chest pain and palpitations. Gastrointestinal: Negative for abdominal pain and vomiting. Neurological: Negative for dizziness and headaches. Psychiatric/Behavioral: Negative for depression and suicidal ideas. The patient is not nervous/anxious. Medications: Current Outpatient Medications: ??? buPROPion XL (WELLBUTRIN XL) 300 MG 24 hr tablet, Take 1 tablet (300 mg total) by mouth daily.,Disp: 30 tablet, Rfl: 1 ??? famotidine 20 MG tablet, Take 1 tablet (20 mg total) by mouth 2 (two) times daily., Disp: 180 tablet, Rfl: 3 ??? multi vitamin/minerals (THERA-M ENHANCED) tablet, Take 1 tablet by mouth daily., Disp: , Rfl: ??? omeprazole 20 MG capsule, Take 1 capsule (20 mg total) by mouth daily. (Patient not taking: Reported on 08/01/2022), Disp: 30 capsule, Rfl: 0 Allergies: No [...] Grandmother ??? Cancer Other PE: Physical Exam Pulmonary: Effort: Pulmonary effort is normal. No respiratory distress. Neurological: Mental Status: She is alert and oriented to person, place, and time. There were no vitals filed for this visit. Labs: Labs Reviewed Diagnoses/Impression: 1. Anxiety Chronic buPROPion XL (WELLBUTRIN XL) 300 MG 24 hr tablet 2. Mixed hyperlipidemia Recommendations and Plan: 1. Anxiety - buPROPion XL (WELLBUTRIN XL) 300 MG 24 hr tablet; Take 1 tablet (300 mg total) by mouth daily. Dispense: 30 tablet; Refill: 1 Symptoms improved, however patient would like to increase bupropion dose if possible. Bupropion 300mg sent to patient's pharmacy. When asked the patient in 1 month for follow-up, sooner if she does not like this recent increase. 2. Mixed hyperlipidemia Labs reviewed today. Therapeutic lifestyle changes and dietary changes conducive to lowering cholesterol were discussed with patient today. I would like to recheck her lipids in 6 months. Orders Placed This Encounter ??? buPROPion XL (WELLBUTRIN XL) 300 MG 24 hr tablet Cannot display discharge medications since this is not an admission. PCP: JOEL Wiggins 08/01/2022 NGE DOUGH MIXER documented in this encounter Plan of Treatment Not on file documented as of this encounter Visit Diagnoses Diagnosis Anxiety- Primary Anxiety state, unspecified Mixed hyperlipidemia documented in this encounter Additional Health Concerns Assessment Noted Time PHQ-9 Depression Total Score: 9 06/22/20 22 11:43 AM LOZENGE DOUGH MIXER documented as of this encounter Care Teams Dermatology Nurse Practitioner Relationship Specialty Start Date End Date Stephanie Pearson APNP [address] [place] [address] PCP - General NURSE PRACTITIONER 01/07/22 documented as of this encounter
--- OUTSIDE RECORDS SUMMARY | 2024-08-06 00:46 | XMS_ITS | Encounter Summary ---
Author Organization [facility] Address [address] [place] [address]. [place], [place] [id number] [place] [address] Care Team Providers Care Aquatic Scientist Name Role Phone Stephanie Pearson Primary Care Provider [phone] Reason for Visit * Reason Onset Date Comments Appointment Request 07/19/2024 Encounter Details Date Type Department Care Team (Late st Contact Info) Description 07/19/2024 Recurve Message Enc [facility] Family & Internal Medicine [facility] [address] [place] [address] Stephanie Pearson APNP [address] [place] [address] Autoimmune Antibody Test Results Social History Tobacco Use Types Packs/Day [...] on file Legal Sex Female 1:24 PM SPIRAL WINDING MACHINE HELPER Gender Identity Female 08/05/2021 12:06 PM SPIRAL WINDING MACHINE HELPER Sexual Orientation Straight 08/05/2021 12 :06 PM SPIRAL WINDING MACHINE HELPER documented as of this encounter Plan of Treatment Not on file documented as of this encounter Visit Diagnoses Not on filedocumented in this encounter Additional Health Concerns Assessment Noted Time PHQ-9 Depression Total Score: 9 06/22/20 22 11:43 AM SPIRAL WINDING MACHINE HELPER documented as of this encounter Care Teams Aquatic Scientist Relationship Specialty Start Date End Date Stephanie Pearson APNP [facility] [place] [address] PCP - General NURSE PRACTITIONER 01/07/22 documented as of this encounter
--- OUTSIDE RECORDS SUMMARY | 2024-08-06 00:46 | XMS_ITS | Encounter Summary ---
Author Organization [facility] Address [address] [place] [address]. [place] [id number] [place] [address] Care Team Providers Care Perl Software Engineer Name Role Phone Stephanie Pearson Primary Care Provider [phone] Reason for Visit * Reason Onset Date Comments Lab Results 08/02/2023 Encounter Details Date Type Department Care Team (Late st Contact Info) Description 08/02/2023 Telephone [facility] Family & Internal Medicine [facility] [address] [place] [address] Stephanie Pearson APNP [address] [place] [address] Lab Results Social History Tobacco [...] on file Legal Sex Female 1:24 PM REAL ESTATE ACCOUNT EXECUTIVE Gender Identity Female 08/05/2021 12:06 PM REAL ESTATE ACCOUNT EXECUTIVE Sexual Orientation Straight 08/05/2021 12 :06 PM REAL ESTATE ACCOUNT EXECUTIVE documented as of this encounter Progress Notes * Mini Delvalle MA - 08/02/2023 3:29 PM CST Lm 08/02/23 tn ESTATE ACCOUNT EXECUTIVE * Mini Delvalle MA - 08/02/2023 3:29 PM CST ----- Message from JOEL Wiggins sent at 08/01/2023 7:54 PM REAL ESTATE ACCOUNT EXECUTIVE ----- Labs stable ESTATE ACCOUNT EXECUTIVE documented in this encounter Plan of Treatment Not on file documented as of this encounter Visit Diagnoses Not on filedocumented in this encounter Additional Health Concerns Assessment Noted Time PHQ-9 Depression Total Score: 9 06/22/20 22 11:43 AM REAL ESTATE ACCOUNT EXECUTIVE documented as of this encounter Care Teams Perl Software Engineer Relationship Specialty Start Date End Date Stephanie Pearson APNP [address] [place] [address] PCP - General NURSE PRACTITIONER 01/07/22 documented as of this encounter
--- OUTSIDE RECORDS SUMMARY | 2024-08-06 00:46 | XMS_ITS | Encounter Summary ---
Author Organization [facility] Address [address] [place] [address]. [place], [place] [id number] [place] [address] Care Team Providers Care Cdl Program Coordinator Name Role Phone Stephanie Pearson Primary Care Provider [phone] Reason for Referral * Consultation (Routine) - Authorized Specialty Diagnoses / Procedures Referred By Contac t Referred To Contact RHEUMATOLOGY Diagnoses Positive MARGARITA (antinuclear antibody) Family history of rheumatoid arthritis Procedures OFFICE/OUTPATIENT NEW LOW MDM 30-44 MINUTES OFFICE/OUTPT VISIT,NEW,LEVL IV OFFICE/OUTPT VISIT,NEW,LEVL V OFFICE/OUTPT VISIT,EST,LEVL III OFFICE/OUTPT VISIT,EST,LEVL IV OFFICE/OUTPT VISIT,EST,LEVL V Stephanie Pearson APNP [address] [place] [address] Phone: tel: fax: [facility] [address] [place] [address] Phone: tel: fax: Referral ID Status Reason Start Date Expiration Date Visits Requested Visits Authorized [id number] Authorized Specialty Services 07/30/2024 08/29/2025 100 100 Scheduling Instructions [facility] or [facility] PAINTER Reason for Visit * Reason Comments Abnormal Lab Results Encounter Details Date Type Department Care Team (Late st Contact Info) Description 07/30/2024 8:00 AM ROOF PAINTER Office Visit [facility] Family & Internal Medicine [address] [address] Stephanie Pearson APNP [address] [place] [address] Abnormal Lab Results Social History Tobacco Use Types [...] on file Legal Sex Female 1:24 PM ROOF PAINTER Gender Identity Female 08/05/2021 12:06 PM ROOF PAINTER Sexual Orientation Straight 08/05/2021 12 :06 PM ROOF PAINTER documented as of this encounter Last Filed Vital Signs Vital Sign Reading Time Taken Comments Blood Pressure 104/66 07/30/2024 8:03 AM ROOF PAINTER Pulse 78 07/30/2024 8:03 AM ROOF PAINTER Temperature 36.6 ??C (97.9 ??F) 07/30/2024 8:03 AM CS T Respiratory Rate 16 07/30/2024 8:03 AM ROOF PAINTER Oxygen Saturation 98% 07/30/2024 8:03 AM ROOF PAINTER Inhaled Oxygen Concentration - - Weight 78.5 kg (173 lb) 07/30/2024 8:03 AM ROOF PAINTER Height 170.2 cm (5' 7 ) 07/30/2024 8:03 AM ROOF PAINTER Body Mass Index 27.1 07/30/2024 8:03 AM ROOF PAINTER documented in this encounter Progress Notes * JOEL Wiggins - 07/30/2024 8:00 AM CST Images from the original note were not included. [facility] OFFICE VISIT Reason for Visit: Abnormal Lab Results History of Present Illness: 34 yo female here today to follow up on some lab results that were previously ordered per her I. MARGARITA returned positive at 1:320. Denies any dry eye, dry mouth, red, swollen joints. She does have some joint pain after long periods of sitting lying down. Has not noticed any specific facial rash. Brother recently diagnosed with RA. ROS: Review of Systems Constitutional: Negative for chills, fever and malaise/fatigue. Respiratory: Negative for cough and shortness of breath. Cardiovascular: Negative for chest pain and palpitations. Gastrointestinal: Negative for abdominal pain, diarrhea, nausea and vomiting. Genitourinary: Negative for dysuria and urgency. Musculoskeletal: Positive for myalgias. Negative for joint pain. Medications: Current Outpatient Medications: buPROPion XL (WELLBUTRIN [...] No Known Problems Sister Asthma Brother Everett Arthritis Brother Everett Recently diagnosed with RA ADD / ADHD Son Heart Disease Maternal [...] Affect: Mood and affect normal. Filed Vitals: 07/30/24 0803 BP: 104/66 Pulse: 78 Resp: 16 Temp: 97.9 ??F (36.6 ??C) TempSrc: Skin SpO2: 98% Weight: 78.5 kg (173 lb) Height: 1.702 m (5' 7 ) Labs: Labs Reviewed Diagnoses/Impression: 1. Positive MARGARITA (antinuclear antibody) RHEUMATOID FACTOR, QUANT ENA2 (SSA & SSB) Ambulatory referral to Rheumatology CANCELED: Ambulatory referral to Rheumatology 2. Family history of rheumatoid arthritis RHEUMATOID FACTOR, QUANT Ambulatory referral to Rheumatology CANCELED: Ambulatory referral to Rheumatology Recommendations and Plan: 1. Positive MARGARITA (antinuclear antibody) - RHEUMATOID FACTOR, QUANT; Future - ENA2 (SSA & SSB); Future - RHEUMATOID FACTOR, QUANT - ENA2 (SSA & SSB) - Ambulatory referral to Rheumatology 2. Family history of rheumatoid arthritis - RHEUMATOID FACTOR, QUANT; Future - RHEUMATOID FACTOR, QUANT - Ambulatory referral to Rheumatology Rheum referral placed Additional labs ordered More plan after results Orders Placed This Encounter RHEUMATOID FACTOR, QUANT ENA2 (SSA & SSB) Ambulatory referral to Rheumatology Cannot display discharge medications since this is not an admission. PCP: JOEL Wiggins 07/30/2024 PAINTER documented in this encounter Plan of Treatment Scheduled Orders Name Type Priority Associated Diagnoses Orde r Schedule RHEUMATOID FACTOR, QUANT Lab Routine Positive MARGARITA (antinuclear antibody) Family history of rheumatoid arthritis Expected: 07/30/2024, Expires: 07/30/2025 ENA2 (SSA & SSB) Lab Routine Positive MARGARITA (antinuclear antibody) Expected: 07/30/2024, Expires: 07/30/2025 Scheduled Referrals Name Type Priority Associated Diagnoses Orde r Schedule Ambulatory referral to Rheumatology Referral Routine Positive MARGARITA (antinuclear antibody) Family history of rheumatoid arthritis Ordered: 07/30/2024 documented as of this encounter Visit Diagnoses Diagnosis Positive MARGARITA (antinuclear antibody)- Primary Other and unspecified nonspecific immunological findings Family history of rheumatoid arthritis Family history of arthritis documented in this encounter Additional Health Concerns Assessment Noted Time PHQ-9 Depression Total Score: 9 06/22/20 22 11:43 AM ROOF PAINTER documented as of this encounter Care Teams Cdl Program Coordinator Relationship Specialty Start Date End Date Stephanie Pearson APNP [address] [place] [address] PCP - General NURSE PRACTITIONER 01/07/22 documented as of this encounter
--- OUTSIDE RECORDS SUMMARY | 2024-08-06 00:46 | XMS_ITS | Encounter Summary ---
Author Organization [facility] Address [address] [place] [address]. [place], [place] [phone] [place] [address] Care Team Providers Care Vice President Education Name Role Phone Stephanie Pearson Primary Care Provider [phone] Encounter Details Date Type Department Care Team (Latest Contact Info) Description 07/28/2023 Travel Social History Tobacco Use Types Packs/Day [...] on file Legal Sex Female 1:24 PM ACCOUNTING MACHINE MECHANIC Gender Identity Female 08/05/2021 12:06 PM ACCOUNTING MACHINE MECHANIC Sexual Orientation Straight 08/05/2021 12 :06 PM ACCOUNTING MACHINE MECHANIC documented as of this encounter Plan of Treatment Not on file documented as of this encounter Visit Diagnoses Not on filedocumented in this encounter Additional Health Concerns Assessment Noted Time PHQ-9 Depression Total Score: 9 06/22/20 22 11:43 AM ACCOUNTING MACHINE MECHANIC documented as of this encounter Care Teams Vice President Education Relationship Specialty Start Date End Date Stephanie Pearson APNP [address] [place] [phone] PCP - General NURSE PRACTITIONER 01/07/22 documented as of this encounter
--- OUTSIDE RECORDS SUMMARY | 2024-08-06 00:46 | XMS_ITS | Encounter Summary ---
Author Organization [facility] Address [address] [place] [address]. [place], [place] [address] [place] [address] Care Team Providers Care Sash Assembler Name Role Phone Stephanie Pearson Primary Care Provider [phone]- [phone] Reason for Visit * Reason Comments Physical Encounter Details Date Type Department Care Team (Late st Contact Info) Description 07/28/2023 8:20 AM TWISTER TENDER Office Visit [facility] Family & Internal Medicine [facility] [address] [place] [address] Stephanie Pearson APNP [address], [place] [id number] Physical Social History Tobacco Use Types Packs/Day Years [...] on file Legal Sex Female 1:24 PM TWISTER TENDER Gender Identity Female 08/05/2021 12:06 PM TWISTER TENDER Sexual Orientation Straight 08/05/2021 12 :06 PM TWISTER TENDER documented as of this encounter Last Filed Vital Signs Vital Sign Reading Time Taken Comments Blood Pressure 118/66 07/28/2023 8:24 AM TWISTER TENDER Pulse 74 07/28/2023 8:24 AM TWISTER TENDER Temperature 36.7 ??C (98 ??F) 07/28/2023 8:24 AM TWISTER TENDER Respiratory Rate 16 07/28/2023 8:24 AM TWISTER TENDER Oxygen Saturation 99% 07/28/2023 8:24 AM TWISTER TENDER Inhaled Oxygen Concentration - - Weight 78.5 kg (173 lb) 07/28/2023 8:24 AM TWISTER TENDER Height 170.2 cm (5' 7 ) 07/28/2023 8:24 AM TWISTER TENDER Body Mass Index 27.1 07/28/2023 8:24 AM TWISTER TENDER documented in this encounter Progress Notes * Stephanie Duque JOEL Pearson - 07/28/2023 8:20 AM CST Images from the original note were not included. [facility] FAMILY AND INTERNAL MEDICINE OFFICE VISIT Reason for Visit: Physical History of Present Illness: The patient is being seen for a health maintenance evaluation. General Health: good Dental Health: Sees dentist regularly Vision Health: No vision correction Hearing Health: No hearing problems Immunizations Needed: UTD Weight: Body mass index is 27.1 kg/m??. Physical Activity: Excersises regularly Cervical Cancer Screening: up to date, sees [facility]N Metabolic Screening: Patient needs to be screened today. HCV Screening: Patient does meet criteria and needs testing today PHQ-9 Screening Score: 0 Smoking Status: Smoking status:NeverSmokeless tobacco:Never Chronic health conditions: Anxiety -patient is currently on bupropion 300 mg. She tolerates this medication well with no bothersome side effects however she feels at times medication could be stronger as she still has some breakthrough anxiety. She states she seems to get anxious over small things that she knows she should not be anxious about. BMI 27.10 -currently on phentermine. Prescribed per Dr. Hart. Has 2 weeks left. Plans for a 3-month break. Exercises and eats healthy. ROS: Review of Systems Constitutional: Negative for chills, fever, malaise/fatigue and weight loss. HENT: Negative for congestion, ear pain, sinus pain and sore throat. Respiratory: Negative for cough, shortness of breath and wheezing. Cardiovascular: Negative for chest pain, palpitations and leg swelling. Gastrointestinal: Negative for abdominal pain, constipation, diarrhea, heartburn, nausea and vomiting. Genitourinary: Negative for dysuria, frequency and urgency. Musculoskeletal: Negative for back pain, falls, joint pain and myalgias. Neurological: Negative for dizziness, speech change, loss of consciousness, weakness and headaches. Psychiatric/Behavioral: Negative for depression and suicidal ideas. The patient is nervous/anxious. Medications: Current Outpatient Medications: buPROPion XL (WELLBUTRIN XL) 300 MG 24 hr tablet, Take 1 tablet (300 mg total) by mouth every morning. Patient must be seen for further refills, Disp: 90 tablet, Rfl: 1 busPIRone (BUSPAR) 10 MG tablet, Take one half tablet twice daily for one week, then increase to one tablet twice daily., Disp: 60 tablet, Rfl: 1 multi vitamin/minerals (THERA-M ENHANCED) tablet, Take 1 tablet by mouth daily., Disp: , Rfl: Phentermine HCl 30 MG Cap, Take 1 capsule by mouth daily., Disp: , Rfl: progesterone [...] used Substance and Sexual Activity Alcohol use: Not Currently Alcohol/week: 1.7 standard drinks of alcohol Types: 1 Glasses of wine per week Comment: once a month, wine Drug use: Never Sexual activity: Yes Partners: Male control/protection: None Family History: Family History Problem Relation Name Age of Onset Diabetes Mother eMlissa Type 2 from PCOS Polycystic ovary syndrome [...] Vitals and nursing note reviewed. HENT: Head: Atraumatic. Right Ear: Tympanic membrane normal. Left Ear: Tympanic membrane normal. Mouth/Throat: Mouth: Mucous membranes are moist. Pharynx: No posterior oropharyngeal erythema. Eyes: General: No scleral icterus. Extraocular Movements: Extraocular movements intact. Conjunctiva/sclera: Conjunctivae normal. Pupils: Pupils are equal, round, and reactive to light. Neck: Thyroid: No thyromegaly. Vascular: No JVD. Trachea: No tracheal deviation. Cardiovascular: Rate and Rhythm: Normal rate and regular rhythm. Heart sounds: No murmur heard. No friction rub. No gallop. Pulmonary: Effort: Pulmonary effort is normal. No respiratory distress. Breath sounds: Normal breath sounds. No wheezing or rales. Chest: Chest wall: No tenderness. Abdominal: General: Bowel sounds are normal. There is no distension. Palpations: Abdomen is soft. There is no mass. Tenderness: There is no abdominal tenderness. There is no guarding or rebound. Musculoskeletal: General: No tenderness. Normal range of motion. Cervical back: Normal range of motion and neck supple. Lymphadenopathy: Cervical: No cervical adenopathy. Skin: General: Skin is warm and dry. Coloration: Skin is not pale. Findings: No erythema or rash. Neurological: Mental Status: She is alert and oriented to person, place, and time. Gait: Gait is intact. Deep Tendon Reflexes: Reflexes are normal and symmetric. Psychiatric: Mood and Affect: Mood and affect normal. Filed Vitals: 07/28/23 0824 BP: 118/66 Pulse: 74 Resp: 16 Temp: 98 ??F (36.7 ??C) TempSrc: Skin SpO2: 99% Weight: 78.5 kg (173 lb) Height: 1.702 m (5' 7 ) Labs: Labs Reviewed Diagnoses/Impression: 1. General medical exam CBC W/DIFF AUTOMATED LIPID PANEL TSH W/REFLEX COMPREHENSIVE METABOLIC PANEL VENIPUNC ARM DRAW 2. BMI 27.0-27.9,adult CBC W/DIFF AUTOMATED LIPID PANEL TSH W/REFLEX COMPREHENSIVE METABOLIC PANEL VENIPUNC ARM DRAW 3. Anxiety Chronic TSH W/REFLEX VENIPUNC ARM DRAW busPIRone (BUSPAR) 10 MG tablet 4. Need for hepatitis C screening test HEPATITIS C AB ([facility] ONLY) VENIPUNC ARM DRAW Recommendations and Plan: 1. General medical exam - CBC W/DIFF AUTOMATED; Future - LIPID PANEL; Future - TSH W/REFLEX; Future - COMPREHENSIVE METABOLIC PANEL; Future - VENIPUNC ARM DRAW Doing well. Will continue to discuss breast cancer screening and screen per patient preference and guidelines. Self-breast exams are a level D recommendation by the USPSTF. Follow up with PCM if any abnormalities are noted. Mammograms should continue annually. Reviewed with the patient BMI, blood pr essure, diet, exercise, and encouraged healthy lifestyle choices. I recommended weight-bearing exercise to decrease risks of osteoporosis. Screened for substance use, risk factors for STIs, diet and exercise habits, and symptoms of depression. Colon screening starting at 45. Recommended preventive immunizations according to age. 2. BMI 27.0-27.9,adult - CBC W/DIFF AUTOMATED; Future - LIPID PANEL; Future - TSH W/REFLEX; Future - COMPREHENSIVE METABOLIC PANEL; Future - VENIPUNC ARM DRAW 3. Anxiety - TSH W/REFLEX; Future - VENIPUNC ARM DRAW - busPIRone (BUSPAR) 10 MG tablet; Take one half tablet twice daily for one week, then increase to one tablet twice daily. Dispense: 60 tablet; Refill: 1 Patient will continue bupropion as ordered. We discussed new medications. Will start BuSpar, aware of risk, benefits and side effects. Would like to see patient back in office or on a video visit in 1 month. 4. Need for hepatitis C screening test - HEPATITIS C AB ([facility] ONLY); Future - VENIPUNC ARM DRAW Shared decision making Orders Placed This Encounter VENIPUNC ARM DRAW CBC W/DIFF AUTOMATED LIPID PANEL TSH W/REFLEX COMPREHENSIVE METABOLIC PANEL HEPATITIS C AB ([facility] ONLY) Phentermine HCl 30 MG Cap progesterone (PROMETRIUM) 200 MG capsule busPIRone (BUSPAR) 10 MG tablet Cannot display discharge medications since this is not an admission. PCP: JOEL Wiggins 07/28/2023 TER TENDER documented in this encounter Plan of Treatment Not on file documented as of this encounter Procedures Procedure Name Priority Date/Time Associated Diagnosis Comments TSH W/REFLEX Routine 07/28/2023 9:53 AM TWISTER TENDER General medical exam BMI 27.0-27.9,adult Anxiety COMPREHENSIVE METABOLIC PANEL Routine 07/28/2023 9:53 AM TWISTER TENDER General medical exam BMI 27.0-27.9,adult LIPID PANEL Routine 07/28/2023 9:53 AM TWISTER TENDER General medical exam BMI 27.0-27.9,adult HEPATITIS C ANTIBODY Routine 07/28/2023 9:53 AM TWISTER TENDER Need for hepatitis C screening test CBC W/DIFF AUTOMATED Routine 07/28/2023 9:53 AM TWISTER TENDER General medical exam BMI 27.0-27.9,adult COLLECTION VENOUS BLOOD VENIPUNCTURE Routine 07/28/2023 8:49 AM TWISTER TENDER General medical exam BMI 27.0-27.9,adult Anxiety Need for hepatitis C screening test documented in this encounter Results * HEPATITIS C AB ([facility] ONLY) (07/28/2023 9:53 AM TWISTER TENDER) HEPATITIS C AB NON-REACTI VE NON-REACT NILA 07/28/2023 6:38 PM TWISTER TENDER [facility] Comment: ANTIBODIES TO HCV NOT DETECTED. DOES NOT EXCLUDE THE POSSIBILITY OF EXPOSURE TO HCV. 07/28/2023 9:53 AM TWISTER TENDER us [facility] Final Resul t [facility] [address] [place] [address], [id number] * (ABNORMAL) COMPREHENSIVE METABOLIC PANEL (07/28/2023 9:53 AM TWISTER TENDER) Pathologist [facility] SODIUM S/P/B 139 136 - 145 MMOL/L 07/28/2023 3:30 PM TWISTER TENDER [facility] POTASSIUM S/P/B 4.4 3.5 - 5.1 MMOL/L 07/28/2023 3:30 PM TWISTER TENDER [facility] CHLORIDE S/P/B 102 98 - 107 MMOL/L 07/28/2023 3:30 PM TWISTER TENDER [facility] CO2 29.9 21 - 32 MMOL/L 07/28/2023 3:30 PM TWISTER TENDER [facility] GLUCOSE 91 70 - 99 MG/DL 07/28/2023 3:30 PM [facility] BUN 7 7 - 18 MG/DL 07/28/2023 3:30 PM [facility] CREATININE S/P/B 0.68 0.55 - 1.02 MG/DL 07/28/2023 3:30 PM [facility] CALCIUM S/P/B 9.5 8.4 - 10.5 MG/DL 07/28/2023 3:30 PM [facility] BILIRUBIN TOTAL S/P/B 0.7 0.2 - 1.0 MG/DL 07/28/2023 3:30 PM [facility] ALKALINE PHOSPHATASE S/P/B 82 37 - 98 U/L 07/28/2023 3:30 PM [facility] AST 14(L) 15 - 37 U/L 07/28/2023 3:30 PM [facility] ALT 25 14 - 59 U/L 07/28/2023 3:30 PM [facility] TOTAL PROTEIN S/P/B 7.8 6.4 - 8.2 G/DL 07/28/2023 3:30 PM [facility] ALBUMIN S/P/B 4.3 3.4 - 5.0 G/DL 07/28/2023 3:30 PM [facility] ANION GAP 7.1 5 - 15 MMOL/L 07/28/2023 3:30 PM [facility] Comment:REFERENCE RANGE NOT ESTABLISHED OSMOLALITY (CALC) 286 MOSM/KG 024 3:30 PM [facility] Comment:REFERENCE RANGE NOT ESTABLISHED GFR ESTIMATE >90 >90 ML/MIN/1. 73 M2 07/28/2023 3:30 PM [facility] GFR NOTES GFR REFERENCE S: 07/28/2023 3:30 PM [facility] Comment: THE ESTIMATED GFR IS CALCULATED USING [...] ml/min/1.73 m2 G5,KIDNEY FAILURE: <15 ml/min/1.73 m2 07/28/2023 9:53 AM TWISTER TENDER Stephanie [facility] Final Resul t Performing Organization Address City/[facility]/ZIP Co de Phone Number [address] [address], [place] [phone] * TSH W/REFLEX (07/28/2023 9:53 AM TWISTER TENDER) TSH 2.534 0.358 - 3.740 uIU/ML 07/28/2023 3:30 PM TWISTER TENDER [facility] 07/28/2023 9:53 AM TWISTER TENDER Stephanie [facility] Final Resul t Performing Organization Address [facility]/ZIP Co de Phone Number [address] [address], [place] [phone] * (ABNORMAL) LIPID PANEL (07/28/2023 9:53 AM TWISTER TENDER) CHOLESTEROL 208(H) <200 MG/DL 07/28/2023 3:30 PM TWISTER TENDER [facility] TRIGLYCERIDES 123 <150 MG/DL 07/28/2023 3:30 PM TWISTER TENDER [facility] HDL 46 >40 MG/DL 07/28/2023 3:30 PM TWISTER TENDER [facility] LDL-C 137(H) <100 MG/DL 07/28/2023 3:30 PM TWISTER TENDER [facility] VLDL CALCULATION 25 5 - 28 MG/DL 07/28/2023 3:30 PM [facility] CHOL/HDL RATIO 4.5(H) 0.0 - 4.0 07/28/2023 3:30 PM [facility] LDL/HDL 3.0(H) 0.41 - 2.13 07/28/2023 3:30 PM [facility] NON HDL CHOLESTEROL 162(H) <140 MG/DL 07/28/2023 3:30 PM TWISTER TENDER [facility] 07/28/2023 9:53 AM TWISTER TENDER Stephanie [facility] Final Resul t [facility] [address] [place] [address], * CBC W/DIFF AUTOMATED (07/28/2023 9:53 AM TWISTER TENDER) WBC 4.12 4.00 - 10.80 x10'3/uL 07/28/2023 3:38 PM [facility] RBC 4.78 4.10 - 5.40 x10'6/uL 07/28/2023 3:38 PM [facility] HGB 14.3 12.0 - 16.0 G/DL 07/28/2023 3:38 PM [facility] HCT 42.6 36.0 - 47.0 % 07/28/2023 3:38 PM [facility] MCV 89.1 78.0 - 100.0 FL 07/28/2023 3:38 PM [facility] MCH 29.9 27.0 - 31.0 PG 07/28/2023 3:38 PM [facility] MCHC 33.6 33.0 - 36.0 G/DL 07/28/2023 3:38 PM [facility] RDW 12.5 11.5 - 14.5 % 07/28/2023 3:38 PM [facility] PLT 339 150 - 350 x10'3/uL 07/28/2023 3:38 PM [facility] MPV 10.3 7.4 - 10.4 FL 07/28/2023 3:38 PM [facility] DIFFERENTIAL TYPE AUTOMATED DIFFERENTIAL 07/28/2023 3:38 PM [facility] NEUTROPHILS % 55.1 % 07/28/2023 3:38 PM [facility] LYMPHOCYTES % 38.1 % 07/28/2023 3:38 PM [facility] MONOCYTES % 5.1 % 07/28/2023 3:38 PM [facility] EOSINOPHILS % 1.2 % 07/28/2023 3:38 PM [facility] BASOPHILS % 0.5 % 07/28/2023 3:38 PM [facility] IMMATURE GRANS % 0.0 % 07/28/2023 3:38 PM [facility] ABS. NEUTROPHILS 2.27 1.60 - 8.30 x10'3/uL 07/28/2023 3:38 PM [facility] ABS. LYMPHOCYTES 1.57 0.80 - 4.70 x10'3/uL 07/28/2023 3:38 PM [facility] ABS. MONOCYTES 0.21 0.00 - 1.50 x10'3/uL 07/28/2023 3:38 PM [facility] ABS. EOSINOPHILS 0.05 0.00 - 0.40 x10'3/uL 07/28/2023 3:38 PM [facility] ABS. BASOPHILS 0.02 0.00 - 0.20 x10'3/uL 07/28/2023 3:38 PM [facility]ISTER TENDER [facility] [place] ABS. IMMATURE GRANULOCYTES 0.00 0.00 - 0.03 x10'3/uL 07/28/2023 3:38 PM TWISTER TENDER [facility] [place] 07/28/2023 9:53 AM TWISTER TENDER us Stephanie [facility] Final Resul t -MARCIE NORRIS [place] [address] [facility] [place] [address], documented in this encounter Visit Diagnoses Diagnosis General medical exam- Primary Unspecified general medical examination BMI 27.0-27.9,adult Body Mass Index 27.0-27.9, adult Anxiety Anxiety state, unspecified Need for hepatitis C screening test Special screening examination for other specified viral diseases documented in this encounter Additional Health Concerns Assessment Noted Time PHQ-9 Depression Total Score: 9 06/22/20 22 11:43 AM TWISTER TENDER documented as of this encounter Care Teams Sash Assembler Relationship Specialty Start Date End Date Stephanie Pearson APNP [address] [place] [address] PCP - General NURSE PRACTITIONER 01/07/22 documented as of this encounter
--- OUTSIDE RECORDS SUMMARY | 2024-08-06 00:46 | XMS_ITS | Patient Health Summary ---
Author Organization [facility] Address [facility] [place] [address] Care Team Providers Care Gelatin Plant Supervisor Name Role Phone Morenita Horton MD Primary Care Provider [phone] Note from [facility],non-owned Affiliates and Associated Physician Practices is amultiple site organization consisting of ambulatory clinics and hospital sitesin [place], [place], [place] and [place]. This disclosure is being madepursuant to the Care Everywhere program and may not contain all information available regarding this patient. Last updated 18.[facility] Active Problems Problem Noted Date Diagnosed [...] Comments Blood Pressure 112/61 06/04/2015 1:22 PM LOSS PREVENTION CONSULTANT Pulse 90 06/04/2015 1:22 PM LOSS PREVENTION CONSULTANT Temperature 36.9 ??C (98.5 ??F) 06/04/2015 1:22 PM CS T Respiratory Rate 18 06/04/2015 1:22 PM LOSS PREVENTION CONSULTANT Oxygen Saturation - - Inhaled Oxygen Concentration - - Weight 74.8 kg (164 lb 14.4 oz) 06/04/2015 1:22 PM LOSS PREVENTION CONSULTANT Height 172.7 cm (5' 8 ) 06/04/2015 1:22 PM LOSS PREVENTION CONSULTANT Body Mass Index 25.07 06/04/2015 1:22 PM LOSS PREVENTION CONSULTANT Care Teams Gelatin Plant Supervisor Relationship Specialty Start Date End Date Morenita Horton MD [address] [facility] [address] [place] [address] [facility] - General 03/06/15
--- OUTSIDE RECORDS SUMMARY | 2024-08-06 00:46 | XMS_ITS | Encounter Summary ---
Author Organization [facility] Address [address] [place] [address]. [place], [place] [address] [place] [address] Care Team Providers Care Foreman/Project Manager Name Role Phone Stephanie Pearson Primary Care Provider [phone] Encounter Details Date Type Department Care Team (Latest Contact Info) Description 08/01/2022 Travel Social History Tobacco Use Types Packs/Day [...] on file Legal Sex Female 1:24 PM HEAD CHOPPER Gender Identity Female 08/05/2021 12:06 PM HEAD CHOPPER Sexual Orientation Straight 08/05/2021 12 :06 PM HEAD CHOPPER COVID-19 Exposure Response Date Recorded In the last 10 days, have yo u been in contact with someone who was confirmed or suspected to have Coronavirus/COVID-19? Unable to assess 08/01/2022 7:10 AM HEAD CHOPPER documented as of this encounter Plan of Treatment Not on file documented as of this encounter Visit Diagnoses Not on filedocumented in this encounter Additional Health Concerns Assessment Noted Time PHQ-9 Depression Total Score: 9 06/22/20 22 11:43 AM HEAD CHOPPER documented as of this encounter Care Teams Foreman/Project Manager Relationship Specialty Start Date End Date Stephanie Pearson APNP [address] [place] [address] PCP - General NURSE PRACTITIONER 01/07/22 documented as of this encounter
--- OUTSIDE RECORDS SUMMARY | 2024-08-06 00:46 | XMS_ITS | Encounter Summary ---
Author Organization [facility] Address [address] [place] [address]. [place] [address] Care Team Providers Care Gutter Installer Name Role Phone Stephanie Pearson Primary Care Provider [phone] Reason for Referral * Imaging (Emergency) - Authorized Specialty Diagnoses / Procedures Referred By Luz t Referred To Contact RADIOLOGY Diagnoses Flank pain, acute Fever, unspecified fever cause Suprapubic pain Other fatigue Procedures CT ABD+PEL WWO CON Stephanie Pearsno APNP [address] [place] [address] Phone: tel: fax: Referral ID Status Reason Start Date Expiration Date V isits Requested Visits Authorized [id number] Authorized 05/03/2024 05/04/2025 1 1 Reason for Visit * Reason Comments UTI Encounter Details Date Type Department Care Team (Late st Contact Info) Description 05/03/2024 9:00 AM CDT Office Visit [facility] - [place] [address] [place] [address] Stephanie Pearson APNP [address] [place], [place] [id number] UTI Social History Tobacco Use Types Packs/Day Years Used Date Smoking Tobacco: Never Smokeless Tobacco: Never Tobacco Cessation:Counseling Given: No Alcohol Use Standard Drinks/Week Comments Not Currently 1.7 (1 standard drink = 0.6 oz p ure alcohol) once a month, wine PHQ-2 Answer Date Recorded Patient Health Questionnaire-2 Score 0 07/28/2023 Comments No Sex and Gender Information Value Date Recorded Sex Assigned at Not on file Legal Sex Female 1:24 PM CATALOGUE MAKER Gender Identity Female 08/05/2021 12:06 PM CATALOGUE MAKER Sexual Orientation Straight 08/05/2021 12 :06 PM CATALOGUE MAKER documented as of this encounter Last Filed Vital Signs Vital Sign Reading Time Taken Comments Blood Pressure 102/64 05/03/2024 9:06 AM CDT Pulse 104 05/03/2024 1:16 PM CDT Temperature 36.6 ??C (97.9 ??F) 05/03/2024 9:06 AM CD T Respiratory Rate 16 05/03/2024 9:06 AM CDT Oxygen Saturation 98% 05/03/2024 9:06 AM CDT Inhaled Oxygen Concentration - - Weight 75.7 kg (166 lb 14.4 oz) 05/03/2024 9:06 AM CDT Height 170.2 cm (5' 7 ) 05/03/2024 9:06 AM CDT Body Mass Index 26.14 05/03/2024 9:06 AM CDT documented in this encounter Progress Notes * JOEL Wiggins - 05/03/2024 9:00 AM CDT Images from the original note were not included. [facility] OFFICE VISIT Reason for Visit: UTI History of Present Illness: 34 yo female here today with c/o 3 day history of bilateral flank pain, suprapubic pain and intermittent fever, chills. She has not noticed any blood in her urine. She is not febrile at office today but states she took IBU 2 hours ago. She does have a hx of pyelonephritis---last episode was severalyears ago. She states she actually had to leave work yesterday the pain was so severe. She notes pain in her flank area is constant but the suprapubic pain is intermittent. ROS: Review of Systems Constitutional: Positive for chills, fever and malaise/fatigue. Respiratory: Negative for cough and shortness of breath. Cardiovascular: Negative for chest pain and palpitations. Gastrointestinal: Positive for abdominal pain. Negative for blood in stool, constipation, diarrhea,heartburn, melena, nausea and vomiting. Genitourinary: Positive for flank pain. Negative for dysuria, frequency, hematuria and urgency. Musculoskeletal: Negative for myalgias. Neurological: Negative for dizziness and headaches. Psychiatric/Behavioral: The patient is not nervous/anxious. Medications: Current [...] total) by mouth daily., Disp: , Rfl: ciprofloxacin (CIPRO) 500 MG tablet, Take 1 tablet (500 mg total) by mouth 2 (two) times daily for 7 days., Disp: 14 tablet, Rfl: 0 metroNIDAZOLE (FLAGYL) 500 MG tablet, Take 1 tablet (500 mg total) by mouth 3 (three) times daily for 7 days., Disp: 21 tablet, Rfl: 0 Allergies: Review of patient's allergies indicates: No [...] There is no mass. Tenderness: There is abdominal tenderness. There is no guarding or rebound. Comments: Bilateral flank pain with palpation, some guarding Suprapubic tenderness with palpation Musculoskeletal: General: No deformity. Normal range of motion. Cervical back: Normal range of motion and neck supple. Skin: General: Skin is warm and dry. Findings: No erythema. Neurological: Mental Status: She is alert and oriented to person, place, and time. Gait: Gait is intact. Psychiatric: Mood and Affect: Mood and affect normal. Filed Vitals: 05/03/24 0906 05/03/24 1316 BP: 102/64 Pulse: (!) 120 (!) 104 Resp: 16 Temp: 97.9 ??F (36.6 ??C) TempSrc: Skin SpO2: 98% Weight: 75.7 kg (166 lb 14.4 oz) Height: 1.702 m (5' 7 ) Labs: Labs Reviewed Diagnoses/Impression: 1. Flank pain, acute URINALYSIS AUTO DIP CT ABD+PEL WWO CON CBC W/DIFF AUTOMATED COMPREHENSIVE METABOLIC PANEL 2. Fever, unspecified fever cause CT ABD+PEL WWO CON CBC W/DIFF AUTOMATED COMPREHENSIVE METABOLIC PANEL 3. Suprapubic pain CT ABD+PEL WWO CON CBC W/DIFF AUTOMATED COMPREHENSIVE METABOLIC PANEL 4. Other fatigue CT ABD+PEL WWO CON CBC W/DIFF AUTOMATED COMPREHENSIVE METABOLIC PANEL Recommendations and Plan: 1. Flank pain, acute - URINALYSIS AUTO DIP - CT ABD+PEL WWO CON; Future - CBC W/DIFF AUTOMATED; Future - COMPREHENSIVE METABOLIC PANEL; Future - CBC W/DIFF AUTOMATED - COMPREHENSIVE METABOLIC PANEL 2. Fever, unspecified fever cause - CT ABD+PEL WWO CON; Future - CBC W/DIFF AUTOMATED; Future - COMPREHENSIVE METABOLIC PANEL; Future - CBC W/DIFF AUTOMATED - COMPREHENSIVE METABOLIC PANEL 3. Suprapubic pain - CT ABD+PEL WWO CON; Future - CBC W/DIFF AUTOMATED; Future - COMPREHENSIVE METABOLIC PANEL; Future - CBC W/DIFF AUTOMATED - COMPREHENSIVE METABOLIC PANEL 4. Other fatigue - CT ABD+PEL WWO CON; Future - CBC W/DIFF AUTOMATED; Future - COMPREHENSIVE METABOLIC PANEL; Future - CBC W/DIFF AUTOMATED - COMPREHENSIVE METABOLIC PANEL Symptoms suggestive of either pyelonephritis versus renal stone Labs and imaging ordered I did discuss with pt today, she may need to to go to ER---declines ER at this time. Wishes to try and proceed outpatient. Will order above--given early in day, I should receive all results promptly. She is aware of danger signs and when to seek emergency care . I personally spent a total of 31 minutes on the day of the encounter. This includes [id number] and nhp-[id number]-yd-face time I provided on the day of the encounter & excludes time spent performing separately reportable services. UA dip in office showed trace blood, nothing else. Orders Placed This Encounter URINALYSIS AUTO DIP CBC W/DIFF AUTOMATED COMPREHENSIVE METABOLIC PANEL CT ABD+PEL WWO CON Cannot display discharge medications since this is not an admission. PCP: JOEL Wiggins 05/03/2024 documented in this encounter Plan of Treatment Scheduled Orders Name Type Priority Associated Diagnoses Orde r Schedule CT ABD+PEL WWO CON CT STAT Flank pain, acute Fever, unspecified fever cause Suprapubic pain Other fatigue Expected: 05/03/2024, Expires: 05/03/2025 documented as of this encounter Procedures Procedure Name Priority Date/Time Associated Diagnosis Comments URINALYSIS AUTO DIP Routine 05/03/2024 Flank pain, acute COMPREHENSIVE METABOLIC PANEL STAT 05/03/2024 12:00 AM CDT Flank pain, acute Fever, unspecified fever cause Suprapubic pain Other fatigue CBC W/DIFF AUTOMATED STAT 05/03/2024 12:00 AM CDT Flank pain, acute Fever, unspecified fever cause Suprapubic pain Other fatigue documented in this encounter Results * COMPREHENSIVE METABOLIC PANEL (05/03/2024 12:00 AM CDT) 05/03/2024 Stephanie [facility] Final Resul t Performing Organization Address [facility]/ZIP Co de Phone Number [facility] * CBC W/DIFF AUTOMATED (05/03/2024 12:00 AM CDT) 05/03/2024 Stephanie Dunia Lili [facility] Final Resul t Performing Organization Address [facility] de Phone Number [facility] * (ABNORMAL) URINALYSIS AUTO DIP (05/03/2024) COLOR (U) YELLOW YELLOW [facility] TRANSPARENCY CLEAR CLEAR [facility] GLUCOSE (U) NEGATIVE NEGATIVE MG/DL [facility] BILIRUBIN (U) NEGATIVE NEGATIVE [facility] KETONES MG/DL (U) 5 (TRACE)(A) NEGATIVE MG/DL [facility] SPECIFIC GRAVITY (U) 1.010 1.001 - 1.035 [facility] BLOOD (U) TRACE (Hemolyzed)( A) NEGATIVE [facility] U PH 6.0 5.0 - 9.0 [facility] PROTEIN (U) NEGATIVE NEGATIVE mg/dL [facility] UROBILINOGEN 0.2 0.2 - 1.0 EU/dL = mg/dL [facility] NITRITES NEGATIVE NEGATIVE MG/DL [facility] LEUKOCYTES (U) NEGATIVE NEGATIVE [facility] URINE SPECIMEN OBTAINED BY CLEAN CATCH PROCEDURE / Unknown 05/03/2024 Stephanie Dunia Lili [facility] ORDERABLES Final Resu lt Performing Organization Address [facility] Co de Phone Number [facility] [address] [place] [address], documented in this encounter Visit Diagnoses Diagnosis Flank pain, acute- Primary Abdominal pain, unspecified site Fever, unspecified fever cause Suprapubic pain Abdominal pain, other specified site Other fatigue documented in this encounter Additional Health Concerns Assessment Noted Time PHQ-9 Depression Total Score: 9 06/22/20 22 11:43 AM CATALOGUE MAKER documented as of this encounter Care Teams Gutter Installer Relationship Specialty Start Date End Date Stephanie Pearson APNP [address] [place] [id number] PCP - General NURSE PRACTITIONER 01/07/22 documented as of this encounter
--- OUTSIDE RECORDS SUMMARY | 2024-08-06 00:49 | XMS_ITS | Clinical Summary ---
Author Organization [facility] Address [address] [place] [id number] Care Team Providers Care Immigration Paralegal Name Role Phone Stephanie Pearson Primary Care Provider + No, Physician Unavailable Allergies No known active allergies Medications buPROPion XL (WELLBUTRIN XL) 300 mg 24 hr tablet Take 1 tablet (300 mg total) by mouth medical technologist chemistry before breakfast 01/22/20 23 Active progesterone (PROMETRIUM) 100 mg capsule Take 1 capsule (100 mg total) by mouth daily Active dexAMETHasone (DECADRON) 1 mg tabletIndication s:PCOS (polycystic ovarian syndrome),Elevat ed testosterone level in female Take 1 tablet at bedtime around 11pm and have your fasting labs cortisol and dexamethasone done the next morning around or before 8am 1 tablet 09/07/19 24 Active Active Problems Problem Noted Date Diagnosed Date Oligomenorrhea 06/11/2018 Vitamin B deficiency 04/28/2015 Overview (10/29/2016): Vitamin B deficiency Notalgia 07/04/2013 Surgical History Surgery Date Site/Laterality Comments NO PAST SURGERIES Medical History Medical History Date Comments No known health problems Family History Medical History Relation Name Comments Colon cancer Maternal Grandmother Cancer, colon; Other Other 1 No family histo ry of Cancer, breast; Other Other 2 No family histo ry of Cancer, cervical; Other Other 3 No family histo ry of Cancer, colon; Relation Name Status Comments Maternal Grandmother Other 1 Other 2 Other 3 Social History Tobacco Use Types Packs/Day Years Used Date Smoking Tobacco: Never Tobacco Cessation:Counseling Given: Not Answered Alcohol Use Standard Drinks/Week Comments Yes 0 (1 standard drink = 0.6 oz pur e alcohol) Comments No Sex and Gender Information Value Date Recorded Sex Assigned at Not on file Legal Sex Female 9:07 PM FEED MILL LAB TECHNICIAN Gender Identity Not on file Sexual Orientation Not on file Obstetrics History Para Term AB IAB SAB Ectopic Multiple Livin g Live Births 1 1 1 1 1 Date Outcome GA Total Labor Labor/2nd/3rd Weight Sex Type Anes PTL Jillian A1 A5 Name Clin 04/2016 Term 38w 0d 3.912 kg (8 lb 10 oz) M Vag-V acuum Epidur al N Livin g Complications:Shoulder Dysto reina,Prolonged second stage,Perineal laceration with delivery, third degree,Frequent UTI,Kidney stones Comments 2016- maternal exhaustion; 3 0 second dystocia Last Filed Vital Signs Vital Sign Reading Time Taken Comments Blood Pressure 133/88 09/07/2023 3:40 PM FEED MILL LAB TECHNICIAN Pulse 108 09/07/2023 3:40 PM FEED MILL LAB TECHNICIAN Temperature - - Respiratory Rate - - Oxygen Saturation - - Inhaled Oxygen Concentration - - Weight 76.7 kg (169 lb) 09/07/2023 3:40 PM FEED MILL LAB TECHNICIAN Height 175.3 cm (5' 9 ) 09/07/2023 3:40 PM FEED MILL LAB TECHNICIAN Body Mass Index 24.96 09/07/2023 3:40 PM FEED MILL LAB TECHNICIAN Plan of Treatment Health Maintenance Due Date Last Done Comments Cervical Cancer Screening 1990 Depression Screening 1990 Hepatitis C Screening 1990 Varicella Vaccines (1 of 2 - 13+ 2-dose series) 2003 Hepatitis B Screening 02/10/2008 Regular Well Visit/Exam 18-64 06/11/2019 06/11/2018 Covid-19 Vaccine ( season) 2024 06/10/2023, 06/12/2022, 06/10/2021, Additional history exists Influenza Vaccine (#1) 2024 , 06/10/2023, 06/11/2022, Additional history exists DTaP/Tdap/Td Vaccine (2 - Td or Tdap) 05/04/2026 05/04/2016 HPV Vaccines Aged Out No longer eligi ble based on patient's age to complete this topic Pneumococcal vaccine <65 Aged Out No longer eligible based on patient's age to complete this topic Insurance [facility] HMO/PPO Address: [facility] [id number] [place] [address] CHOICE PLUS Care Teams Immigration Paralegal Relationship Specialty Start Date End Date Stephanie Pearson PA [facility] [place] [address] PCP - General Nurse Practitioner 04/14/23 No, Physician 04/14/23
--- OUTSIDE RECORDS SUMMARY | 2024-08-06 00:49 | XMS_ITS | Referral Summary ---
Author Organization [facility] Address [address] [place] [address] Care Team Providers Care Leather Leveler Name Role Phone Stephanie Pearson Primary Care Provider + No, Physician Unavailable Allergies No known active allergies Medications buPROPion XL (WELLBUTRIN XL) 300 mg 24 hr tablet Take 1 tablet (300 mg total) by mouth account services manager before breakfast 01/22/20 23 Active progesterone (PROMETRIUM) [...] Overview (10/29/2016): Vitamin B deficiency Notalgia 07/04/2013 Social History Tobacco Use Types Packs/Day Years Used Date Smoking Tobacco: Never Tobacco Cessation:Counseling Given: Not Answered Alcohol Use Standard Drinks/Week Comments Yes 0 (1 standard drink = 0.6 oz pur e alcohol) Comments No Sex and Gender Information Value Date Recorded Sex Assigned at Not on file Legal Sex Female 9:07 PM PUBLIC HEALTH ASSISTANT Gender Identity Not on file Sexual Orientation Not on file Last Filed Vital Signs Vital Sign Reading Time Taken Comments Blood Pressure 133/88 09/07/2023 3:40 PM PUBLIC HEALTH ASSISTANT Pulse 108 09/07/2023 3:40 PM PUBLIC HEALTH ASSISTANT Temperature - - Respiratory Rate - - Oxygen Saturation - - Inhaled Oxygen Concentration - - Weight 76.7 kg (169 lb) 09/07/2023 3:40 PM PUBLIC HEALTH ASSISTANT Height 175.3 cm (5' 9 ) 09/07/2023 3:40 PM PUBLIC HEALTH ASSISTANT Body Mass Index 24.96 09/07/2023 3:40 PM PUBLIC HEALTH ASSISTANT Plan of Treatment Not on file Insurance CHOICE PLUS [facility] HMO/PPO Address: [address] [address] [place] [address] Care Teams Leather Leveler Relationship Specialty Start Date End Date Stephanie Pearson PA [address] [place] [id number] PCP - General Nurse Practitioner 04/14/23 No, Physician 04/14/23
--- OUTSIDE RECORDS SUMMARY | 2024-08-06 00:50 | XMS_ITS | Encounter Summary ---
Author Organization [facility] Care Team Providers Care Forestry Engineer Name Role Phone Unavailable Primary Care Provider Unavailabl e Encounter Details Date Type Department Care Team (Late st Contact Info) Description 09/11/2015 12:55 PM ACADEMIC SUPPORT COORDINATOR - 09/11/2015 11:59 PM ACADEMIC SUPPORT COORDINATOR Hospital Encounter [facility] Sana Henry MD [address] [place] [address] Amenorrhea Social History Tobacco Use Types Packs/Day Years Used Date Smoking Tobacco: Never Alcohol Use Standard Drinks/Week Comments Yes 0 (1 standard drink = 0.6 oz pur e alcohol) Comments Unknown Sex and Gender Information Value Date Recorded Sex Assigned at Not on file Legal Sex Female 9:07 PM ACADEMIC SUPPORT COORDINATOR Gender Identity Not on file Sexual Orientation Not on file documented as of this encounter Plan of Treatment Not on file documented as of this encounter Procedures Procedure Name Priority Date/Time Associated Diagnosis Comments SERUM PROGESTERONE Routine 09/11/2015 1: 00 PM ACADEMIC SUPPORT COORDINATOR PLASMA CHORIONIC GONADOTROPIN (HCG), QUANTITATIVE Routine 09/11/2015 1:00 PM ACADEMIC SUPPORT COORDINATOR BLOOD ABO, RH Routine 09/11/2015 1:00 PM ACADEMIC SUPPORT COORDINATOR DISCHARGE LABORATORY CUMULATIVE REPORT 09/11/2015 documented in this encounter Results * (ABNORMAL) Plasma chorionic gonadotropin (HCG), quantitative (09/11/2015 1:00 PM ACADEMIC SUPPORT COORDINATOR) Pathologist [facility] HCG, quant 1974.0(H) 0.0 - 5.0 IUnits/L HISTORICAL RESULTS Comment: Effective March 14, 2014, the B-hCG assay is being offered with new methodology without affecting the normal reference range. No guidelines are available for gestational age related reference ranges. ??Please monitor B-hCG values with serial testing. Plasma 09/11/2015 1:00 PM ACADEMIC SUPPORT COORDINATOR Sana Henry MD LAB BLOOD ORDERABLES F inal Result Performing Organization Address [facility] de Phone Number HISTORICAL RESULTS * Serum progesterone (09/11/2015 1:00 PM ACADEMIC SUPPORT COORDINATOR) Pathologist [facility] Progesterone 9.7 ng/ml HISTORI JOAQUINA RESULTS Comment: Progesterone Reference Ranges: Males: ??0.14 - 2.06 ng/mL Females: ?? Mid-follicular: 0.3 - 1.5 ng/mL Mid-luteal: 5.2 - 18.6 ng/mL Post-menopausal: ??<0.8 ng/mL : First trimester: ??4.7 - 50.7 ng/mL Second trimester: ??19.4 - 45.3 ng/mL Serum 09/11/2015 1:00 PM ACADEMIC SUPPORT COORDINATOR Result [facility] Sana Henry MD LAB BLOOD ORDERABLES F inal Result Performing Organization Address [facility] de Phone Number HISTORICAL RESULTS * Blood ABO, Rh (09/11/2015 1:00 PM ACADEMIC SUPPORT COORDINATOR) Pathologist [facility] ABO typing O HISTORICA L RESULTS Rho(D) typing Positive HISTOR ICAL RESULTS Blood specimen (specimen) 09/11/2015 1:00 PM ACADEMIC SUPPORT COORDINATOR Sana Henry MD LAB BLOOD ORDERABLES F inal Result Performing Organization Address [facility] de Phone Number HISTORICAL RESULTS * DISCHARGE LABORATORY CUMULATIVE REPORT (09/11/2015) Narrative 09/11/2015 Ordered by an unspecified provider. us Historical Provider LAB BLOOD ORDERABLES Maryellen l Result documented in this encounter Visit Diagnoses Diagnosis Amenorrhea Absence of menstruation documented in this encounter
--- OUTSIDE RECORDS SUMMARY | 2024-08-06 00:50 | XMS_ITS | Encounter Summary ---
Author Organization [facility] Medical Group Address [address] [place] [facility] [place] [address] [place] [address] Care Team Providers Care Family Engagement Specialist Name Role Phone No, Physician Primary Care Provider [phone] Reason for Visit * Reason Comments Gynecologic Exam last Pap 04/2015 NIL M, - HPV Encounter Details Date Type Department Care Team (Late st Contact Info) Description 06/11/2018 2:00 PM FIELD RADIO OPERATOR [facility] Visit [facility] [address] [id number] Sana Henry MD [address] [facility] [address] [place] [address] Well woman exam (Primary Dx); Amenorrhea Social History Tobacco Use Types Packs/Day Years Used Date Smoking Tobacco: Never Alcohol Use Standard Drinks/Week Comments Yes 0 (1 standard drink = 0.6 oz pur e alcohol) Comments No Sex and Gender Information Value Date Recorded Sex Assigned at Not on file Legal Sex Female 9:07 PM FIELD RADIO OPERATOR Gender Identity Not on file Sexual Orientation Not on file documented as of this encounter Last Filed Vital Signs Vital Sign Reading Time Taken Comments Blood Pressure 132/80 06/11/2018 1:34 PM FIELD RADIO OPERATOR Pulse - - Temperature - - Respiratory Rate - - Oxygen Saturation - - Inhaled Oxygen Concentration - - Weight 84.8 kg (187 lb) 06/11/2018 1:34 PM FIELD RADIO OPERATOR Height - - Body Mass Index 29.29 06/15/2016 4:08 PM FIELD RADIO OPERATOR documented in this encounter Ordered Prescriptions Prescription Sig Dispense Quantity Refills Last Filled Start Date End Date medroxyPROGESTERon e (PROVERA) 10 mg tablet Take 1 tablet (10 mg total) by mouth daily for 7 days. 7 tablet 06/11/2018 09/07/2023 documented in this encounter Progress Notes * Sana Henry MD - 06/11/2018 2:00 PM CST Patient ID: Floridalma Stapleton is a 28 y.o. Subjective Chief Complaint: Gynecologic Exam (last Pap 04/2015 NILM, - HPV) HPI Floridalma is here for WWE. She is doing well. She had a normal pap smear 2014. She stopped OCPs about 1 year ago. Had a regular period for a couple months. Then 7 months ago had a very heavy period and has not had another one. Prior to Owen would also rarely have a period. Did not plan for pregnancyand did not know for a little while because normally would skip periods. No changes in symptoms. Will get more migraines in the last 7 months but no nipple discharge, visual changes, weight changes, acne or dark hair growth. Not trying but also not preventing . is not convinced he wants another one. Was traumatized with last delivery and re-admission. They will probably start trying again when Owen turns 3. Has been exercising with running a couple times per week. Not the same but still tries. Eating healthy diet. Does still get kidney stones 4-5x per week. Will also get frequent UTIs still. Still works at [employer] in [place]. Owen is going to daycare and happy with that. He isvery talkative and social. Her sister is also . Review of Systems Constitutional: Negative for appetite change, fatigue and fever. Gastrointestinal: Negative for abdominal pain, constipation, diarrhea and nausea. Endocrine: Negative for cold intolerance and heat intolerance. Genitourinary: Positive for menstrual problem. Negative for dyspareunia, dysuria, pelvic pain, urgency and vaginal discharge. Neurological: Negative for light-headedness and headaches. Breast: Negative for tenderness, breast redness, breast discharge and lump(s). Histories OB Obstetric History T1 L1 SAB0 TAB0 Ectopic0 Multiple0 Live Births1 # Outcome Date GA Lbr Mic/2nd Weight Sex Delivery Anes PTL Lv 1 Term 04/2016 38w0d 3.912 kg (8 lb 10 oz) M Vag-Vacuum EPI N PEÑA Complications: Prolonged second stage,Perineal laceration with delivery, third degree,Frequent UTI,Kidney stones Medical She has a past medical history of No known health problems. Surgical She has a past surgical history that includes No past surgeries. Family Her Family History Problem Relation Age of Onset ??? Colon cancer Maternal Grandmother Cancer, colon; ??? Other Other No family history of Cancer, breast; ??? Other Other No family history of Cancer, cervical; ??? Other Other No family history of Cancer, colon; Social Patient reports that she has never smoked. She does not have any smokeless tobacco history on file.She reports that she drinks alcohol. Meds Current Outpatient Prescriptions: ??? fluconazole (DIFLUCAN) 150 mg tablet, Take 1 tablet by mouth now, may repeat in 3 to 4 days if needed, Disp: 2 tablet, Rfl: 0 Allergies Patient has No Known Allergies. Objective BP 132/80 Wt 187 lb (84.8 kg) BMI 29.29 kg/m?? Physical Exam Constitutional: She is oriented to person, place, and time. She appears well- developed and well-nourished. No distress. Head: Normocephalic and atraumatic. Eyes: Conjunctivae are normal. Neck: Neck supple. No thyromegaly present. Cardiovascular: Normal rate, regular rhythm and normal heart sounds. No murmur heard. Pulmonary/Chest: Effort normal and breath sounds normal. No respiratory distress. Breast: There are no masses, lumps, or lesions bilaterally. Bilateral nipples are normal. No axillary lymphadenopathy Abdominal: Soft, non-tender, non-distended. No hernia or mass. : Normal external genitalia. Urethra normal, glands normal. Vagina is normal. The cervix is normal in appearance. The uterus is mobile and non-tender. There are no adnexal masses Musculoskeletal: She exhibits no edema or deformity. Lymphadenopathy: No groin adenopathy. Neurological: She is alert and oriented to person, place, and time. Skin: Skin is warm and dry. No rash noted. Psychiatric: She has a normal mood and affect. Judgment and insight are intact. Assessment/Plan 1. Well woman exam -Pap smear done today. Reviewed guidelines. -Reviewed SBE recommendations -Discussed calcium and vitamin D recommendations. To continue calcium and vitamin D supplementationin diet -Discussed healthy diet and exercise recommendations -RTO in 1 year or PRN - Cytology; Future 2. Amenorrhea - H/o amenorrhea, likely PCOS. Will recheck hormones and obtain TVUS. If all normal and negative hcg, plan for provera withdrawal to induce a period. We also discussed OCPs to regulate her period again if workup normal or shows PCOS recommend hormones to regulate menses including OCPs until ready for again. She will consider options. - hCG, blood, quantitative; Future - TSH reflex to free T4; Future - Testosterone; Future - Follicle stimulating hormone; Future - LH; Future - Prolactin; Future - Estradiol; Future D RADIO OPERATOR documented in this encounter Plan of Treatment Not on file documented as of this encounter Results * Estradiol (06/18/2018 8:40 AM FIELD RADIO OPERATOR) Estradiol 53.6 pg/mL [facility] Comment: Interpretive Data Estradiol Reference Ranges: Males: < 25 - 60 pg/mL Females: ?? Follicular Phase: 12 - 233 pg/mL Ovulatory Phase: 41 - 398 pg/mL Luteal Phase: 22 - 341 pg/mL Post-menopausal: 0 - 130 pg/mL Current Interpretive Data was last revised on 2016. Blood specimen (specimen) 06/18/2018 8:40 AM FIELD RADIO OPERATOR 06/18/2018 10:23 AM FIELD RADIO OPERATOR Narrative [facility] - 06/18/2018 11:02 AM FIELD RADIO OPERATOR us Sana Henry MD LAB BLOOD ORDERABLES F inal Result [facility] [address] [place] [address] * Prolactin (06/18/2018 8:40 AM FIELD RADIO OPERATOR) Prolactin 9.280 4.790 - 23.300 ng/mL [facility] Comment: Interpretive Data On October 18, 2016 new Chemistry Instrumentation was implemented. ??If you have any questions, please contact the Laboratory at [phone]. Blood specimen (specimen) 06/18/2018 8:40 AM FIELD RADIO OPERATOR 06/18/2018 10:24 AM FIELD RADIO OPERATOR Narrative [facility] - 06/18/2018 11:04 AM FIELD RADIO OPERATOR Result [facility] Sana Henry MD LAB BLOOD ORDERABLES F inal Result Performing Organization Address [facility] de Phone Number [facility] [address] [place] [address] * LH (06/18/2018 8:40 AM FIELD RADIO OPERATOR) LH 20.78 mIUnits/mL [facility] Comment: Interpretive Data Male: 1.7 - 8.6 mIUnits/mL Female: Follicular Phase: 2.4 - 12.6 mIUnits/mL Ovulatory Phase: 14.00 - 95.6 ??mIUnits/mL Luteal Phase: 1.00 - 11.4 mIUnits/mL Postmenopausal: 7.7 - 55.8 mIUnits/mL Current Interpretive Data was last revised 2016. Blood specimen (specimen) 06/18/2018 8:40 AM FIELD RADIO OPERATOR 06/18/2018 10:24 AM FIELD RADIO OPERATOR Narrative [facility] - 06/18/2018 11:04 AM FIELD RADIO OPERATOR Result [facility] Sana Henry MD LAB BLOOD ORDERABLES F inal Result Performing Organization Address [facility] de Phone Number [facility] [address] [place] [address] * Follicle stimulating hormone (06/18/2018 8:40 AM FIELD RADIO OPERATOR) FSH 6.52 mIUnits/mL [facility] Comment: Interpretive Data ? Males: ??1.5 - 12.4 mIUnits/mL ? Females: Follicular Phase: 3.5 - 12.5 mIUnits/mL Ovulatory Phase: 4.7 - 21.5 mIUnits/mL ? Luteal Phase: 1.7 - 7.7 mIUnits/mL Post-menopausal: 25.8 - 134 mIUnits/mL Current Interpretive Data was last revised on 2016. Blood specimen (specimen) 06/18/2018 8:40 AM FIELD RADIO OPERATOR 06/18/2018 10:24 AM FIELD RADIO OPERATOR Narrative [facility] - 06/18/2018 11:03 AM FIELD RADIO OPERATOR us Sana Henry MD LAB BLOOD ORDERABLES F inal Result Performing Organization Address City/[facility] Co de Phone Number [facility] [address] [place] [address] * (ABNORMAL) Testosterone (06/18/2018 8:40 AM FIELD RADIO OPERATOR) [facility] Signature Testosterone 81.98(H) 8.40 - 48.10 ng/dL [facility] Blood specimen (specimen) 06/18/2018 8:40 AM FIELD RADIO OPERATOR 06/18/2018 10:24 AM FIELD RADIO OPERATOR Narrative [facility] - 06/18/2018 11:04 AM FIELD RADIO OPERATOR Sana Henry MD LAB BLOOD ORDERABLES F inal Result Performing Organization Address [facility] Co de Phone Number [facility] [address] Department [place], [place] [id number] * TSH reflex to free T4 (06/18/2018 8:40 AM FIELD RADIO OPERATOR) Pathologist [facility] TSH 2.75 0.30 - 4.20 mcIUnit/mL [facility] Blood specimen (specimen) 06/18/2018 8:40 AM FIELD RADIO OPERATOR 06/18/2018 10:24 AM FIELD RADIO OPERATOR Narrative [facility] - 06/18/2018 11:04 AM FIELD RADIO OPERATOR Sana Henry MD LAB BLOOD ORDERABLES F inal Result Performing Organization Address [facility] Co de Phone Number [facility] [address] Department of [place], [place] [id number] * hCG, blood, quantitative (06/18/2018 8:40 AM FIELD RADIO OPERATOR) [facility] hCG, quant <0.1 0.0 - 5.0 IUnits/L [facility] Comment: Interpretive Data Non- Female premenopausal: < or = 5.0 IUnits/L Men: < 5.0 IUnits/L Weeks of Gestation ? Reference Interval ?? 3 to 6 ? 5.8-31,795 IUnits/L ?? 7 to 10 ? 3,697-186,977 IUnits/L ??12 to 15 ?27,832- 70,791 IUnits/L ??16 to 18 ? 9,040- 58,179 IUnits/L Current Interpretive Data was last revised on 2018. Blood specimen (specimen) 06/18/2018 8:40 AM FIELD RADIO OPERATOR 06/18/2018 10:24 AM FIELD RADIO OPERATOR Narrative [facility] - 06/18/2018 11:03 AM FIELD RADIO OPERATOR Sana Henry MD LAB BLOOD ORDERABLES F inal Result Performing Organization Address [facility]/ZIP Co de Phone Number [facility] [address] [place] [address] documented in this encounter Visit Diagnoses Diagnosis Well woman exam- Primary Routine general medical examination at a health care facility Amenorrhea Absence of menstruation Amenorrhea Absence of menstruation documented in this encounter Discontinued Medications Medication Sig Discontinue Reason Start Date End Da te norethindrone-e.estradio l-iron (08/12) 1 mg-20 mcg (21)/75 mg (7) per tablet take 1 tablet by oral route every day Side effects 06/15/2016 06/11/2018 documented as of this encounter Care Teams Family Engagement Specialist Relationship Specialty Start Date End Date No, Physician PCP - General 05/25/18 04/13/23 documented as of this encounter
--- OUTSIDE RECORDS SUMMARY | 2024-08-06 00:50 | XMS_ITS | Encounter Summary ---
Author Organization [facility] Facility Care Team Providers Care Shake Maker Name Role Phone Unavailable Primary Care Provider Unavailabl e Encounter Details Date Type Department Care Team (Late st Contact Info) Description 09/16/2015 1:58 PM SUPERVISOR CORDUROY CUTTING - 09/16/2015 11:59 PM SUPERVISOR CORDUROY CUTTING Hospital Encounter [facility] Sana Henry MD [address] [place] [address] Encounter for supervision of normal ; Less than 8 weeks gestation of ; Other ovarian cyst; Personal history of other specified conditions Social History Tobacco Use Types Packs/Day Years Used Date Smoking Tobacco: Never Alcohol Use Standard Drinks/Week Comments Yes 0 (1 standard drink = 0.6 oz pur e alcohol) Comments Unknown Sex and Gender Information Value Date Recorded Sex Assigned at Not on file Legal Sex Female 9:07 PM SUPERVISOR CORDUROY CUTTING Gender Identity Not on file Sexual Orientation Not on file documented as of this encounter Plan of Treatment Not on file documented as of this encounter Procedures Procedure Name Priority Date/Time Associated Diagnosis Comments US TRANSVAGINAL Routine 09/16/2015 3:14 PM SUPERVISOR CORDUROY CUTTING documented in this encounter Results * US Transvaginal (09/16/2015 3:14 PM SUPERVISOR CORDUROY CUTTING) Anatomical Region Laterality Modality Pelvis N/A Ultrasound 09/16/2015 3:14 PM SUPERVISOR CORDUROY CUTTING Narrative 09/16/2015 3:38 PM SUPERVISOR CORDUROY CUTTING Early obstetrical sonogram HISTORY: 25-year-old female with an early and uncertain dates. ??Irregular menstrual cycles. FINDINGS: The pelvis was evaluated through a distended urinary bladder using a 5 MHz sector scanner and endovaginally using a 6-8 MHz sector. ??The uterus is of normal size and configuration. ??It measures 7.5 cm in length and 4.5 x 5 cm in transverse dimension. ??A gestational sac is identified in the uterus. ??The mean sac diameter is 1.05 cm, corresponding to 5 weeks one day. ??A yolk sac is identified within the gestational sac. ??A pole is not identified at this time. ??The findings could simply reflect an early intrauterine . ??Correlation with serial beta hCG levels and follow-up sonography are suggested. ??The uterus is otherwise unremarkable in appearance. ??A small amount of fluid is seen in the cul-de-sac. Both ovaries are identified. ??The right ovary measures 3 x 1.9 x 2.1 cm on the left measures 4.2 x 2.9 x 3.9 cm. ??A simple cyst is identified in the left ovary measuring 2.5 x 2.5 x 2.8 cm in transverse dimension. ??An adjacent smaller cyst/follicle is also noted. ??Blood flow is identified to both ovaries on Doppler imaging. ?? There are no complex adnexal masses. IMPRESSION: 1. ??A gestational sac is identified in the uterus. ??Based on the mean sac diameter, the estimated gestational age is 5 weeks one day. ??A yolk sac is noted within the gestational sac. ??A pole is not identified at this time. ??The findings could simply reflect an early intrauterine . ??Correlation with serial beta hCG levels and follow-up sonography is recommended. 2. ??Dominant simple cyst in the left ovary as above. ??The ovaries are otherwise unremarkable with normal blood flow on Doppler imaging. ??No complex adnexal masses. 3. ??Trace amount of free fluid in the cul-de-sac. Electronically signed by: Miguelito Gallegos M.D. Radiologist: MIGUELITO GALLEGOS MD ?? Attending: ??SANA HENRY ?? Requesting: SANA HENRY ?? Requesting Fax: ?? Requesting ID: [id number] Attending Fax: ?? Attending ID: ?? [id number] Completed Time: ?? 09/16/2015 3:14 PM Dictated Time: ?09/16/2015 3:38 PM Transcribed Time: 09/16/2015 3:38 PM Signed by: ?SHAKIRA BANUELOS, MIGUELITO ContrerasYudith ?? on 09/16/2015 3:38 PM Report To 1 ID: Report To 1 Name: , Report To 1 FAX: Report To 2 ID: Report To 2 Name: , Report To 2 FAX: Report To 3 ID: Report To 3 Name: , Report To 3 FAX: NextGen Order #: Procedure Note Provider, MD Dariana - 11/27/2016 Early obstetrical sonogram HISTORY: 25-year-old female with an early and uncertain dates. Irregular menstrual cycles. FINDINGS: The pelvis was evaluated through a distended urinary bladder using a 5 MHz sector scanner and endovaginally using a 6-8 MHz sector. The uterus is of normal size and configuration. It measures 7.5 cm in length and 4.5 x 5 cm in transverse dimension. A gestational sac is identified in the uterus. The mean sac diameter is 1.05 cm, corresponding to 5 weeks one day. A yolk sac is identified within the gestational sac. A pole is not identified at this time. The findings could simply reflect an early intrauterine . Correlation with serial beta hCG levels and follow-up sonography are suggested. The uterus is otherwise unremarkable in appearance. A small amount of fluid is seen in the cul-de-sac. Both ovaries are identified. The right ovary measures 3 x 1.9 x 2.1 cm on the left measures 4.2 x 2.9 x 3.9 cm. A simple cyst is identified in the left ovary measuring 2.5 x 2.5 x 2.8 cm in transverse dimension. An adjacent smaller cyst/follicle is also noted. Blood flow is identified to both ovaries on Doppler imaging. There are no complex adnexal masses. IMPRESSION: 1. A gestational sac is identified in the uterus. Based on the mean sac diameter, the estimated gestational age is 5 weeks one day. A yolk sac is noted within the gestational sac. A pole is not identified at this time. The findings could simply reflect an early intrauterine . Correlation with serial beta hCG levels and follow-up sonography is recommended. 2. Dominant simple cyst in the left ovary as above. The ovaries are otherwise unremarkable with normal blood flow on Doppler imaging. No complex adnexal masses. 3. Trace amount of free fluid in the cul-de-sac. Electronically signed by: Miguelito Gallegos M.D. Radiologist: MIGUELITO GALLEGOS MD Attending: SANA HENRY Requesting: SANA HENRY Requesting Requesting ID: [id number] Attending Attending ID: [id number] Completed Time: 09/16/2015 3:14 PM Dictated Time: 09/16/2015 3:38 PM Transcribed Time: 09/16/2015 3:38 PM Signed by: MIGUELITO GALLEGOS MD on 09/16/2015 3:38 PM Report To 1 ID: Report To 1 Name: , Report To 1 FAX: Report To 2 ID: Report To 2 Name: , Report To 2 FAX: Report To 3 ID: Report To 3 Name: , Report To 3 FAX: NextGen Order #: us Historical Provider MD CURTIS US PROCEDURES Final R esult documented in this encounter Visit Diagnoses Diagnosis Encounter for supervision of normal Less than 8 weeks gestation of Other ovarian cyst Personal history of other specified conditions documented in this encounter
--- OUTSIDE RECORDS SUMMARY | 2024-08-06 00:50 | XMS_ITS | Encounter Summary ---
Author Organization [facility] Facility Care Team Providers Care Sap Project Manager Name Role Phone Unavailable Primary Care Provider Unavailabl e Encounter Details Date Type Department Care Team (Late st Contact Info) Description 09/30/2015 1:05 PM PIZZA COOK - 09/30/2015 11:59 PM PIZZA COOK Hospital Encounter [facility] Sana Henry MD [address] [place] [address] Encounter for supervision of normal in first trimester; Ovarian cyst Social History Tobacco Use Types Packs/Day Years Used Date Smoking Tobacco: Never Alcohol Use Standard Drinks/Week Comments Yes 0 (1 standard drink = 0.6 oz pur e alcohol) Comments Unknown Sex and Gender Information Value Date Recorded Sex Assigned at Not on file Legal Sex Female 9:07 PM PIZZA COOK Gender Identity Not on file Sexual Orientation Not on file documented as of this encounter Plan of Treatment Not on file documented as of this encounter Procedures Procedure Name Priority Date/Time Associated Diagnosis Comments SONOGRAPHY, COMPLETE Routine 09/30/2015 1:41 PM PIZZA COOK documented in this encounter Results * SONOGRAPHY, COMPLETE (09/30/2015 1:41 PM PIZZA COOK) Anatomical Region Laterality Modality N/A Ultrasound 09/30/2015 1:41 PM PIZZA COOK Narrative 09/30/2015 2:17 PM PIZZA COOK OB sonography less than 14 week gestation HISTORY: Assess viability. A real-time sonographic evaluation of the pelvis is performed from an anterior pelvic wall approach. An viable early intrauterine gestation is identified. ?? heart rate is 16 1 bpm. ??Both a pole and yolk sac are identified. ?? Based on a crown-rump length of 1.2 cm this represents a 7 week 3 day gestation which agrees with clinical dating of 7 weeks and 1 day and an estimated date of delivery of 05/17/2016. Both ovaries are identified and arterial flow is documented to both ovaries. ??A simple cyst is noted in the left ovary measuring 2.1 x 1.9 x 2.1 cm. ??No free fluid is present. IMPRESSION: 1. ??Viable early intrauterine gestation. ??Based on a crown-rump length of 1.2 cm is represents a 7 week 3 day gestation which agrees with clinical dating of 7 weeks and 1 day and an estimated date of delivery of 05/17/2016. 2. ??Benign-appearing cyst in the left ovary. Electronically signed by: Francesca Aguilar M.D. Radiologist: MEI BANUELOS, FRANCESCA Srinivasan M.D. ?? Attending: ??SANA HENRY ?? Requesting: SANA HENRY ?? Requesting Fax: ?? Requesting ID: [id number] Attending Fax: ?? Attending ID: ?? [id number] Completed Time: ?? 09/30/2015 1:41 PM Dictated Time: ?09/30/2015 2:17 PM Transcribed Time: 09/30/2015 2:17 PM Signed by: ?FRANCESCA AGUILAR MD ??Dawna on 09/30/2015 2:17 PM Report To 1 ID: Report To 1 Name: , Report To 1 FAX: Report To 2 ID: Report To 2 Name: , Report To 2 FAX: Report To 3 ID: Report To 3 Name: , Report To 3 FAX: NextGen Order #: Procedure Note Provider, MD Dariana - 11/27/2016 OB sonography less than 14 week gestation HISTORY: Assess viability. A real-time sonographic evaluation of the pelvis is performed from an anterior pelvic wall approach. An viable early intrauterine gestation is identified. heart rate is 16 1 bpm. Both a pole and yolk sac are identified. Based on a crown-rump length of 1.2 cm this represents a 7 week 3 day gestation which agrees with clinical dating of 7 weeks and 1 day and an estimated date of delivery of 05/17/2016. Both ovaries are identified and arterial flow is documented to both ovaries. A simple cyst is noted in the left ovary measuring 2.1 x 1.9 x 2.1 cm. No free fluid is present. IMPRESSION: 1. Viable early intrauterine gestation. Based on a crown-rump length of 1.2 cm is represents a 7 week 3 day gestation which agrees with clinical dating of 7 weeks and 1 day and an estimated date of delivery of 05/17/2016. 2. Benign-appearing cyst in the left ovary. Electronically signed by: Francesca Aguilar M.D. Radiologist: FRANCESCA AGUILAR MD, M.D. Attending: SANA HENRY Requesting: SANA HENRY Requesting Requesting ID: [id number] Attending Attending ID: [id number] Completed Time: 09/30/2015 1:41 PM Dictated Time: 09/30/2015 2:17 PM Transcribed Time: 09/30/2015 2:17 PM Signed by: MEI BANUELOS, FRANCESCA Srinivasan M.D. on 09/30/2015 2:17 PM Report To 1 ID: Report To [...] Diagnoses Diagnosis Encounter for supervision of normal in first trimester Ovarian cyst Other and unspecified ovarian cyst documented in this encounter
--- OUTSIDE RECORDS SUMMARY | 2024-08-06 00:50 | XMS_ITS | Encounter Summary ---
Author Organization [facility] Facility Care Team Providers Care Talent Acquisition Consultant Name Role Phone Unavailable Primary Care Provider Unavailabl e Encounter Details Date Type Department Care Team (Late st Contact Info) Description 10/20/2015 3:37 PM CDT - 10/20/2015 11:59 PM CDT Hospital Encounter [facility] Sana Henry MD [address] [place] [address] Encounter for screening of mother Social History Tobacco Use Types Packs/Day Years Used Date Smoking Tobacco: Never Alcohol Use Standard Drinks/Week Comments Yes 0 (1 standard drink = 0.6 oz pur e alcohol) Comments Unknown Sex and Gender Information Value Date Recorded Sex Assigned at Not on file Legal Sex Female 9:07 PM GASATERIA ATTENDANT Gender Identity Not on file Sexual Orientation Not on file documented as of this encounter Plan of Treatment Not on file documented as of this encounter Procedures Procedure Name Priority Date/Time Associated Diagnosis Comments SERUM RUBELLA AB Routine 10/20/2015 3:43 PM CDT SERUM HUMAN IMMUNODEFICIENCY VIRUS (HIV) 1, 2 AB Routine 10/20/2015 3:43 PM CDT SERUM HEPATITIS B SURFACE AG Routine 10/20/2015 3:43 PM CDT BLOOD CELL COUNT (CBC), MORPHOLOGIC EXAM Routine 10/20/2015 3:43 PM CDT BLOOD ABO, RH, INDIRECT AB SCREEN Routine 10/20/2015 3:43 PM CDT SERUM RAPID PLASMA REAGIN (RPR) Routine 10/20/2015 10:43 AM CDT BLOOD HEMOGLOBIN ANALYSIS Routine 10/20/2015 10:43 AM CDT BLOOD CYSTIC FIBROSIS CFTR GENE MUTATION DETECTION Routine 10/20/2015 10:43 AM CDT DISCHARGE LABORATORY CUMULATIVE REPORT 10/20/2015 documented in this encounter Results * Blood ABO, Rh, indirect ab screen (10/20/2015 3:43 PM CDT) ABO typing O HISTORICA L RESULTS Rho(D) typing Positive HISTOR ICAL RESULTS Roxann, indirect Negative HISTORICAL RESULTS Blood specimen (specimen) 10/20/2015 3:43 PM CDT Sana Henry MD LAB BLOOD ORDERABLES F inal Result HISTORICAL RESULTS * Blood cell count (CBC), morphologic exam (10/20/2015 3:43 PM CDT) WBC 6.8 3.8 - 9.9 K/cumm HISTORICAL RESULTS Comment: Complete Blood Count with Automated Differential -- Effective Tuesday, October 06, 2015, the [facility] Laboratory changed hematology analyzers to the Sysmex XN 9000. ??Automated differential reporting now includes immature granulocyte percentage, comprised of metamyelocytes, myelocytes, and promyelocytes. ??Blasts will continue to be notated as part of the manual differential count. ??Reference ranges have also been revised. RBC 4.39 3.90 - 5.20 M/cumm HISTORICAL RESULTS Hgb 13.1 11.9 - 15.5 g/dl HISTORICAL RESULTS Comment:Hemoglobin -- Effect gila Tuesday, October 06, 2015, the [facility] Laboratory changed hematology analyzers to the Sysmex XN 9000. Reference ranges have been revised. Hct 38.4 35.6 - 45.5 % HISTORICAL RESULTS Comment:Hematocrit -- Effect gila Tuesday, October 06, 2015, the [facility] Laboratory changed hematology analyzers to the Sysmex XN 9000. Reference ranges have been revised. MCV 87.5 81.3 - 96.4 fl HISTORICAL RESULTS MCH 29.8 27.1 - 33.3 pg HISTORICAL RESULTS MCHC 34.1 32.3 - 35.7 g/dl HISTORICAL RESULTS RDW 41.4 35.7 - 48.1 fl HISTORICAL RESULTS Rdw 13.2 11.1 - 14.9 % HISTORICAL RESULTS Platelets 277 150 - 400 K/cumm HISTORICAL RESULTS Comment:Platelet Count -- Ef fective Tuesday, October 06, 2015, the [facility] Laboratory changed hematology analyzers to the Sysmex XN 9000. Low platelet counts will reflex to fluorescent counting, with superior accuracy. Reference ranges have been revised. MPV 10.1 9.1 - 12.3 fl HISTORICAL RESULTS Neutrophils 65.0 44.0 - 80.0 % HISTORICAL RESULTS Lymphocytes 26.9 13.0 - 44.0 % HISTORICAL RESULTS Monos 6.4 2.0 - 11.0 % HISTORICAL RESULTS Eosinophils 1.3 0.0 - 6.0 % HISTORICAL RESULTS Basophils 0.3 0.0 - 3.0 % HISTORICAL RESULTS Immature granulocytes 0.1 0.0 - 1.0 % HISTORICAL RESULTS NRBC 0.0 0.0 - 0.2 % HISTORICAL RESULTS Neutrophils, abs 4.4 1.7 - 6.5 K/cumm HISTORICAL RESULTS Lymphocytes, abs 1.8 0.8 - 3.3 K/cumm HISTORICAL RESULTS Monocytes, absolute 0.4 0.2 - 0.8 K/cumm HISTORICAL RESULTS Eosinophils, abs 0.1 0.0 - 0.5 K/cumm HISTORICAL RESULTS Basophils, abs 0.0 0.0 - 0.1 K/cumm HISTORICAL RESULTS Immature granulocyte, abs 0.010 0.00 - 0.10 K/cumm HISTORICAL RESULTS NRBC, abs 0.00 0.00 - 0.01 K/cumm HISTORICAL RESULTS Blood specimen (specimen) 10/20/2015 3:43 PM CDT us Sana Henry MD LAB BLOOD ORDERABLES F inal Result HISTORICAL RESULTS * Serum Rubella ab (10/20/2015 3:43 PM CDT) Pathologist [facility] Rubella ab, IgG 27.5 (POS) IUnits/ml HISTORICAL RESULTS Comment: Interpretation: < 10.0 IUnits/mL ?Non- Reactive 10.0 - 14.9 IUnits/mL Equivocal > or = 15.0 IUnits/mL Reactive It is recommended that an EQUIVOCAL result be redrawn and reassayed. Serum 10/20/2015 3:43 PM CDT Sana Henry MD LAB BLOOD ORDERABLES F inal Result Performing Organization Address [facility] de Phone Number HISTORICAL RESULTS * Serum Hepatitis B surface ag (10/20/2015 3:43 PM CDT) [facility] HBV surface ag Non-Reacti ve Non-Reacti ve HISTORICAL RESULTS Serum 10/20/2015 3:43 PM CDT Sana Henry MD LAB BLOOD ORDERABLES F inal Result Performing Organization Address [facility] de Phone Number HISTORICAL RESULTS * Serum Human Immunodeficiency virus (HIV) 1, 2 ab (10/20/2015 3:43 PM CDT) [facility] HIV ab Non-React gila Non-React gila HISTORICAL RESULTS Comment: As of August 26, 2015, the [facility] lab analyzes HIV reactivity using Siemens [employer] 4th generation HIV assay. This assay assesses the presence of HIV 1/2 antibody and p24 HIV antigen. For any questions please call the Chemistry lab at [phone]. Serum 10/20/2015 3:43 PM CDT Sana Henry MD LAB BLOOD ORDERABLES F inal Result Performing Organization Address [facility] Co de Phone Number HISTORICAL RESULTS * Blood cystic fibrosis CFTR gene mutation detection (10/20/2015 10:43 AM CDT) Referral specimen, interp Negative HISTORICAL RESULTS Cystic fibrosis mutation detection . HISTORICA L RESULTS Comment: Having excluded the listed mutations, this result decreases the likelihood but does not exclude the possibility that this individual is a carrier of or affected with cystic fibrosis (CF). The degree to which this result reduces the patient's risk depends on the ethnic background and family history of the patient. Because this information was not provided, we are unable to provide a revised risk assessment at this time. The risk that this individual is a carrier of another CF mutation is listed below. Ethnicity ? Risk ? (Detection rate, Carrier Freq) Northern ? (91%, 08/17) Mixed ?134 ? (82%, 08/17) Southern ? 115 ? (79%, 08/17) Eastern ?127 ? (77%, 08/22) Ashkenazi Yazdanism ? (97%, 08/17) Amharic Djiboutian ? (91%, 08/17) ?338 ? (81%, ) Citizen Of [place] ? 251 ? (82%, ) Citizen Of [place]* ? 194 ? (54%, ) *does not apply to individuals of [place] ancestry These calculations are based on the mutation detection rates and population carrier frequencies noted in the chart and assume no family history of CF. Because there is little information available about the carrier frequency and mutation detection rates for individuals of other ethnicities, we are unable to provide a revised risk assessment for ethnicities other than those listed. If the patient has a family history of CF, contact our laboratory for a revised risk assessment. If there is a suspected diagnosis of CF, correlation between other laboratory tests and clinical history is recommended. Additional genetic testing strategies, such as full gene analysis of the CFTR gene (CFTRZ / CFTR Gene, Full Gene Analysis), should be considered for identifying mutations that are not detected by this assay. Contact the Molecular Genetics Laboratory at for further discussion regarding this option. A genetic consultation may be of benefit. ADDITIONAL INFORMATION An online research opportunity called [employer] ([employer]), a project of [employer], is available for the recipient of this genetic test. This patient registry collects de-identified genetic and health information to advance the knowledge of genetic variants. [facility] is a collaborator of [employer]. This may not be applicable for all tests. Test results should be interpreted in the context of clinical findings, family history, and other laboratory data. Misinterpretation of results may occur if the information provided is inaccurate or incomplete. Rare polymorphisms exist that could lead to false-negative or false-positive results. If results obtained do not match the clinical findings, additional testing should be considered. Bone Marrow transplants from allogenic donors will interfere with testing. Call [facility] for instructions for testing patients who have received a bone marrow transplant. Multiple in-silico evaluation tools may have been used to assist in the interpretation of these results. Of note, the sensitivity and specificity of these tools for the determination of pathogenicity is currently unvalidated. Laboratory developed test. Specimen type WB Whole Blood HISTORICAL RESULTS Chromosome analysis, method . HISTORICAL RESULTS Comment: The multiplex PCR based assay utilizing the deltaDNA Array platform was used to detect 106 mutations, including the 23 mutations specified in the [place] [employer] (ACMG) standards for population based carrier screening. The mutations are as follows: [id number], [id number], G542X, G85E, R117H, V2521U (TGG>TGA), 621+1G>T, 711+1G>T, B7863T (C>A), A2766I (C>G), R334W, R347P, A455E, 1717-1G>A, R553X, R560T, G551D, 1898+1G>A, 2184delA, 2789+5G>A, 3120+1G>A, L9802W, 3659delC, 3849+10kbC>T, the deletion of exons 2-3, 296+2T>A, E60X, R75X, 394_395delTT, 405+1G>A, 406-1G>A, E92X, 444delA, 457TAT>G, R117C, Y122X, 574delA, 663delT, G178R, 711+5G>A, 712-1G>T, H199Y, P205S, L206W, 191xqx95, 935delA, 936delTA, aivqcR721, 1078delT, G330X, T338I, R347H, R352Q, Q359K, T360K, 1288insTA, S466X (C>A), S466X (C>G), G480C, Q493X, 1677delTA, C524X, S549N, S549R (T>G), Q552X, A559T, 1811+1.6kbA>G, 1812-1G>A, 1898+1G>T, 1898+1G>C, 1898+5G>T, P574H, 9349qwo52, 2043delG, 6777rti7>A, 2712syx46vqz9, 2108delA, 2143delT, 2183_2184delAAinsG, 2184insA, R709X, K710X, 2307insA, R764X, Q890X, 2869insG, 3171delC, 4380nge2, P5713S, C6787C (TGG>TAG), Y4755H (C>G), I3567Z (C>A), G1468M, D4082G, L3586A, F3096S, 3273vbi8, E0846O, Q1904S (TGG>TAG), 3791delC, V4205Y, 3876delA, C3878D, Z2391B, 3905insT, and 4016dupT mutations are detected. Poly T determination and confirmatory testing of homozygous results are performed as reflex tests when appropriate. Blood specimen (specimen) 10/20/2015 10:43 AM CDT Narrative HISTORICAL RESULTS - 10/27/2015 12:19 PM CDT Test performed at [facility] Dept of Lab Medicine and Pathology, [address] [place] [address], [facility] [address]. Sana Henry MD LAB BLOOD ORDERABLES F inal Result Performing Organization Address City/[facility] Co de Phone Number HISTORICAL RESULTS * (ABNORMAL) Blood hemoglobin analysis (10/20/2015 10:43 AM CDT) RBC 4.32 3.90 - 5.20 M/cumm HISTORICAL RESULTS Hgb 12.9(L) 13.0 - 17.5 g/dl HISTORICAL RESULTS MCV 87.5 81.3 - 96.4 fl HISTORICAL RESULTS Rdw 13.2 11.8 - 14.6 % HISTORICAL RESULTS Hgb electrophoresis Normal Hemoglobin Pattern - For Age HISTORICAL RESULTS Hgb F <0.4 0.0 - 0.9 % HISTORICAL RESULTS Hgb A2 3.2 1.5 - 3.2 % HISTORICAL RESULTS Hgb A1 96.8 96.0 - 98.5 % HISTORICAL RESULTS Blood specimen (specimen) 10/20/2015 10:43 AM CDT Narrative HISTORICAL RESULTS - 10/21/2015 8:14 AM CDT Test performed at [facility], [address] [facility] Floor [place], [place], [place], [address]. Sana Henry MD LAB BLOOD ORDERABLES F inal Result HISTORICAL RESULTS * Serum rapid plasma reagin (RPR) (10/20/2015 10:43 AM CDT) RPR Nonreactive HISTORIC AL RESULTS Serum 10/20/2015 10:4 3 AM CDT Narrative HISTORICAL RESULTS - 10/20/2015 4:47 PM CDT Test performed at [facility], [address] [facility] [facility], [place], [place], [place], [address]. us Sana Henry MD LAB BLOOD ORDERABLES F inal Result HISTORICAL RESULTS * DISCHARGE LABORATORY CUMULATIVE REPORT (10/20/2015) Narrative 10/20/2015 Ordered by an unspecified provider. us Historical Provider LAB BLOOD ORDERABLES Maryellen l Result documented in this encounter Visit Diagnoses Diagnosis Encounter for screening of mother documented in this encounter
--- OUTSIDE RECORDS SUMMARY | 2024-08-06 00:50 | XMS_ITS | Encounter Summary ---
Author Organization [facility] Healthcare Address [address] [place] [address] Care Team Providers Care Fats And Oils Loader Name Role Phone No, Physician Primary Care Provider Encounter Details Date Type Department Care Team (Late st Contact Info) Description 06/18/2018 8:40 AM APPEALS EXAMINER Lab [facility] [address] [place] [address] Sana Henry MD [address] [facility] [address] [place] [address] Amenorrhea Discharge Disposition: Discharge to home or self care Social History Tobacco Use Types Packs/Day Years Used Date Smoking Tobacco: Never Alcohol Use Standard Drinks/Week Comments Yes 0 (1 standard drink = 0.6 oz pur e alcohol) Comments No Sex and Gender Information Value Date Recorded Sex Assigned at Not on file Legal Sex Female 9:07 PM APPEALS EXAMINER Gender Identity Not on file Sexual Orientation Not on file documented as of this encounter Discharge Disposition Disposition Code Departure Means Destination Discharge to home or self care documented in this encounter Plan of Treatment Not on file documented as of this encounter Procedures Procedure Name Priority Date/Time Associated Diagnosis Comments THYROID FUNCTION CASCADE Routine 06/18/2018 8:40 AM APPEALS EXAMINER Amenorrhea PROLACTIN Routine 06/18/2018 8:40 AM APPEALS EXAMINER Amenorrhea ESTRADIOL Routine 06/18/2018 8:40 AM APPEALS EXAMINER Amenorrhea HCG, BLOOD, QUANTITATIVE Routine 06/18/2018 8:40 AM APPEALS EXAMINER Amenorrhea TOTAL TESTOSTERONE Routine 06/18/2018 8: 40 AM APPEALS EXAMINER Amenorrhea LUTEINIZING HORMONE (LH) Routine 06/18/2018 8:40 AM APPEALS EXAMINER Amenorrhea FOLLICLE STIMULATING HORMONE Routine 06/18/2018 8:40 AM APPEALS EXAMINER Amenorrhea documented in this encounter Results * Estradiol (06/18/2018 8:40 AM APPEALS EXAMINER) Estradiol 53.6 pg/mL [facility] Comment: Interpretive Data Estradiol Reference Ranges: Males: < 25 - 60 pg/mL Females: ?? Follicular Phase: 12 - 233 pg/mL Ovulatory Phase: 41 - 398 pg/mL Luteal Phase: 22 - 341 pg/mL Post-menopausal: 0 - 130 pg/mL Current Interpretive Data was last revised on 2016. Blood specimen (specimen) 06/18/2018 8:40 AM APPEALS EXAMINER 06/18/2018 10:23 AM APPEALS EXAMINER Narrative [facility] - 06/18/2018 11:02 AM APPEALS EXAMINER us Sana Henry MD LAB BLOOD ORDERABLES F inal Result [facility] [address] Department [place] [address] * Prolactin (06/18/2018 8:40 AM APPEALS EXAMINER) Prolactin 9.280 4.790 - 23.300 ng/mL [facility] Comment: Interpretive Data On October 18, 2016 new Chemistry Instrumentation was implemented. ??If you have any questions, please contact the Laboratory at [phone]. Blood specimen (specimen) 06/18/2018 8:40 AM APPEALS EXAMINER 06/18/2018 10:24 AM APPEALS EXAMINER Narrative [facility] - 06/18/2018 11:04 AM APPEALS EXAMINER Snaa Henry MD LAB BLOOD ORDERABLES F inal Result Performing Organization Address [facility] de Phone Number [facility] [address] [facility] [place] [address] * LH (06/18/2018 8:40 AM APPEALS EXAMINER) LH 20.78 mIUnits/mL [facility] Comment: Interpretive Data Male: 1.7 - 8.6 mIUnits/mL Female: Follicular Phase: 2.4 - 12.6 mIUnits/mL Ovulatory Phase: 14.00 - 95.6 ??mIUnits/mL Luteal Phase: 1.00 - 11.4 mIUnits/mL Postmenopausal: 7.7 - 55.8 mIUnits/mL Current Interpretive Data was last revised 2016. Blood specimen (specimen) 06/18/2018 8:40 AM APPEALS EXAMINER 06/18/2018 10:24 AM APPEALS EXAMINER Narrative [facility] - 06/18/2018 11:04 AM APPEALS EXAMINER Sana Henry MD LAB BLOOD ORDERABLES F inal Result Performing Organization Address [facility] de Phone Number [facility] [address] Department [place] [address] * Follicle stimulating hormone (06/18/2018 8:40 AM APPEALS EXAMINER) FSH 6.52 mIUnits/mL [facility] Comment: Interpretive Data ? Males: ??1.5 - 12.4 mIUnits/mL ? Females: Follicular Phase: 3.5 - 12.5 mIUnits/mL Ovulatory Phase: 4.7 - 21.5 mIUnits/mL ? Luteal Phase: 1.7 - 7.7 mIUnits/mL Post-menopausal: 25.8 - 134 mIUnits/mL Current Interpretive Data was last revised on 2016. Blood specimen (specimen) 06/18/2018 8:40 AM APPEALS EXAMINER 06/18/2018 10:24 AM APPEALS EXAMINER Narrative [facility] - 06/18/2018 11:03 AM APPEALS EXAMINER Sana Henry MD LAB BLOOD ORDERABLES F inal Result Performing Organization Address [facility] de Phone Number [facility] [address] [place] [address] * (ABNORMAL) Testosterone (06/18/2018 8:40 AM APPEALS EXAMINER) Testosterone 81.98(H) 8.40 - 48.10 ng/dL [facility] Blood specimen (specimen) 06/18/2018 8:40 AM APPEALS EXAMINER 06/18/2018 10:24 AM APPEALS EXAMINER Narrative [facility] - 06/18/2018 11:04 AM APPEALS EXAMINER Sana Henry MD LAB BLOOD ORDERABLES F inal Result Performing Organization Address [facility] de Phone Number [facility] [address] Department [employer] [place], [place] [id number] * TSH reflex to free T4 (06/18/2018 8:40 AM APPEALS EXAMINER) TSH 2.75 0.30 - 4.20 mcIUnit/mL [facility] Blood specimen (specimen) 06/18/2018 8:40 AM APPEALS EXAMINER 06/18/2018 10:24 AM APPEALS EXAMINER Narrative [facility] - 06/18/2018 11:04 AM APPEALS EXAMINER us Sana Henry MD LAB BLOOD ORDERABLES F inal Result Performing Organization Address [facility] Co de Phone Number [facility] [address] [place] [address] * hCG, blood, quantitative (06/18/2018 8:40 AM APPEALS EXAMINER) hCG, quant <0.1 0.0 - 5.0 IUnits/L [facility] Comment: Interpretive Data Non- Female premenopausal: < or = 5.0 IUnits/L Men: < 5.0 IUnits/L Weeks of Gestation ? Reference Interval ?? 3 to 6 ? 5.8-31,795 IUnits/L ?? 7 to 10 ? 3,697-186,977 IUnits/L ??12 to 15 ?27,832- 70,791 IUnits/L ??16 to 18 ? 9,040- 58,179 IUnits/L Current Interpretive Data was last revised on 2018. Blood specimen (specimen) 06/18/2018 8:40 AM APPEALS EXAMINER 06/18/2018 10:24 AM APPEALS EXAMINER Narrative [facility] - 06/18/2018 11:03 AM APPEALS EXAMINER us Sana Henry MD LAB BLOOD ORDERABLES F inal Result Performing Organization Address [facility]/ZIP Co de Phone Number [facility] [address] Department of [employer] [place], [place] [id number] documented in this encounter Visit Diagnoses Diagnosis Amenorrhea Absence of menstruation documented in this encounter Care Teams Fats And Oils Loader Relationship Specialty Start Date End Date No, Physician PCP - General 05/25/18 04/13/23 documented as of this encounter
--- OUTSIDE RECORDS SUMMARY | 2024-08-06 00:50 | XMS_ITS | Encounter Summary ---
Author Organization [facility] Healthcare Address [address] [place] [address] Care Team Providers Care Cutter Apprentice Hand Name Role Phone No, Physician Primary Care Provider [phone] Encounter Details Date Type Department Care Team (Late st Contact Info) Description 06/13/2018 10:45 AM HAND COLLATOR Lab [address] [address] Social History Tobacco Use Types Packs/Day Years Used Date Smoking Tobacco: Never Alcohol Use Standard Drinks/Week Comments Yes 0 (1 standard drink = 0.6 oz pur e alcohol) Comments No Sex and Gender Information Value Date Recorded Sex Assigned at Not on file Legal Sex Female 9:07 PM HAND COLLATOR Gender Identity Not on file Sexual Orientation Not on file documented as of this encounter Plan of Treatment Not on file documented as of this encounter Procedures Procedure Name Priority Date/Time Associated Diagnosis Comments CYTOLOGY Routine 06/11/2018 1:36 PM HAND COLLATOR documented in this encounter Results * Cytology (06/11/2018 1:36 PM HAND COLLATOR) 06/11/2018 1:36 PM HAND COLLATOR 06/13/2018 11:56 AM HAND COLLATOR Narrative 06/15/2018 11:44 AM HAND COLLATOR [address] ??[address] Tele: ?? Racquel Ricketts MD - Skiver [employer]ock [employer]ings ?? Ernesto Sanitago - Administrative Personal Assistant CYTOLOGY REPORT Patient Name: ??FLORIDALMA STAPLETONYudith Address: ??[address] [place] [id number] Gender: ??F : ??1990 (Age: 28) Service: ??Laboratory Location: ??Lab Hospital #: ??[id number] Patient Type: ??MB Ref Lab Taken: ??06/11/2018 Received: ?? 06/13/2018 Reported: ??06/15/2018 Physician(s): ? Sana Henry M.D. FINAL DIAGNOSIS: Specimen Type: ? - Cervical/Endocervical ThinPrep Pap Test Statement of Specimen Adequacy: ?- Satisfactory for interpretation ?- Endocervical /Transformation Zone component present ?- Case screened using computer assisted imaging technology General Categorization: ?- Negative for intraepithelial lesion or malignancy ?? jxm/06/15/2018 11:44 TAMMI Navarro (ASCP) ?? Report Reviewed and Electronically Signed By ??TAMMI Navarro (ASCP) Clerical Data Follow A; 22845 CLINICAL DIAGNOSIS AND HISTORY Last Menstrual Period: UNKNOWN REPORT IMAGES AND/OR SCANNED DOCUMENTS ONLY VIEWABLE IN PDF FORMAT The Pap test is a screening test used to aid in the detection of cervical cancer and its precursors. It should not be the sole means by which malignant and premalignant lesions are diagnosed. ??Both false negative and false positive results may occur. ??It also has poor sensitivity for the detection of endometrial lesions and should not be used to evaluate suspected endometrial abnormalities. ??For these reasons it is most important to obtain Pap tests at regular intervals, as recommended by your physician or nurse practitioner. us Sana Henry MD LAB CYTOLOGY ORDERABLE S Final Result documented in this encounter Visit Diagnoses Not on filedocumented in this encounter Care Teams Cutter Apprentice Hand Relationship Specialty Start Date End Date No, Physician PCP - General 05/25/18 04/13/23 documented as of this encounter
--- OUTSIDE RECORDS SUMMARY | 2024-08-06 00:50 | XMS_ITS | Encounter Summary ---
Author Organization [facility] Facility Care Team Providers Care Slasher Machine Operator Name Role Phone Unavailable Primary Care Provider Unavailabl e Encounter Details Date Type Department Care Team (Late st Contact Info) Description 11/11/2015 3:05 PM CDT - 11/11/2015 11:59 PM CDT Hospital Encounter [facility] Sana eHnry MD [address] [place] [address] Encounter for screening of mother Social History Tobacco Use Types Packs/Day Years Used Date Smoking Tobacco: Never Alcohol Use Standard Drinks/Week Comments Yes 0 (1 standard drink = 0.6 oz pur e alcohol) Comments Unknown Sex and Gender Information Value Date Recorded Sex Assigned at Not on file Legal Sex Female 9:07 PM SEARCH COORDINATOR Gender Identity Not on file Sexual Orientation Not on file documented as of this encounter Plan of Treatment Not on file documented as of this encounter Visit Diagnoses Diagnosis Encounter for screening of mother documented in this encounter
--- OUTSIDE RECORDS SUMMARY | 2024-08-06 00:50 | XMS_ITS | Encounter Summary ---
Author Organization [facility] [place] Facility Care Team Providers Care Private Investigator Surveillance Name Role Phone Unavailable Primary Care Provider Unavailabl e Encounter Details Date Type Department Care Team (Late st Contact Info) Description 05/04/2016 7:05 AM CDT - 05/06/2016 3:30 PM CDT Hospital Encounter [facility] CL[facility] Sana Henry MD [address] [place] [address] Prolonged second stage of labor; Third degree perineal laceration during delivery; Obstructed labor due to shoulder dystocia; Attempted application of vacuum extractor and forceps; Retention of urine; 38 weeks gestation of ; Single live Social History Tobacco Use Types Packs/Day Years Used Date Smoking Tobacco: Never Alcohol Use Standard Drinks/Week Comments Yes 0 (1 standard drink = 0.6 oz pur e alcohol) Comments Unknown Sex and Gender Information Value Date Recorded Sex Assigned at Not on file Legal 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 Gender Identity Not on file Sexual Orientation Not on file documented as of this encounter Last Filed Vital Signs Vital Sign Reading Time Taken Comments Blood Pressure - - Pulse - - Temperature - - Respiratory Rate - - Oxygen Saturation - - Inhaled Oxygen Concentration - - Weight 88.5 kg (195 lb) 05/04/2016 4:05 AM CDT Height 172.7 cm (5' 7.99 ) 05/04/2016 4:05 AM CD T Body Mass Index 29.66 05/04/2016 4:05 AM CDT documented in this encounter Plan of Treatment Not on file documented as of this encounter Procedures Procedure Name Priority Date/Time Associated Diagnosis Comments DISCHARGE LABORATORY CUMULATIVE REPORT 05/06/2016 BLOOD HEMOGLOBIN Routine 05/05/2016 6:11 AM CDT BLOOD CELL COUNT (CBC), MORPHOLOGIC EXAM Routine 05/04/2016 7:59 AM CDT BLOOD ABO, RH, INDIRECT AB SCREEN Routine 05/04/2016 7:45 AM CDT documented in this encounter Results * DISCHARGE LABORATORY CUMULATIVE REPORT (05/06/2016) Narrative 05/06/2016 Ordered by an unspecified provider. Historical Provider LAB BLOOD ORDERABLES Maryellen l Result * Blood hemoglobin (05/05/2016 6:11 AM CDT) Hgb 11.9 11.5 - 16.0 g/dl CDR HISTORICAL RESULTS Comment:As of August 07, the hemoglobin alert value has changed from less than 7.0 g/dL to less than or equal to 6.5 g/dL, first time per admission. Blood specimen (specimen) 05/05/2016 6:11 AM CDT Sana Henry MD LAB BLOOD ORDERABLES F inal Result CDR HISTORICAL RESULTS * (ABNORMAL) Blood cell count (CBC), morphologic exam (05/04/2016 7:59 AM CDT) WBC 9.5 3.8 - 9.9 K/cumm CDR HISTORICAL RESULTS RBC 4.30 3.90 - 5.20 M/cumm CDR HISTORICAL RESULTS Hgb 12.4 11.9 - 15.5 g/dl CDR HISTORICAL RESULTS Hct 36.7 35.6 - 45.5 % CDR HISTORICAL RESULTS MCV 85.3 81.3 - 96.4 fl CDR HISTORICAL RESULTS MCH 28.8 27.1 - 33.3 pg CDR HISTORICAL RESULTS MCHC 33.8 32.3 - 35.7 g/dl CDR HISTORICAL RESULTS RDW 41.6 35.7 - 48.1 fl CDR HISTORICAL RESULTS Rdw 13.6 11.1 - 14.9 % CDR HISTORICAL RESULTS Platelets 186 150 - 400 K/cumm CDR HISTORICAL RESULTS MPV 10.7 9.1 - 12.3 fl CDR HISTORICAL RESULTS Neutrophils 87.6(H) 44.0 - 80.0 % CDR HISTORICAL RESULTS Lymphocytes 8.9(L) 13.0 - 44.0 % CDR HISTORICAL RESULTS Monos 3.1 2.0 - 11.0 % CDR HISTORICAL RESULTS Eosinophils 0.1 0.0 - 6.0 % CDR HISTORICAL RESULTS Basophils 0.1 0.0 - 3.0 % CDR HISTORICAL RESULTS Immature granulocytes 0.2 0.0 - 1.0 % CDR HISTORICAL RESULTS NRBC 0.0 0.0 - 0.2 % CDR HISTORICAL RESULTS Neutrophils, abs 8.4(H) 1.7 - 6.5 K/cumm CDR HISTORICAL RESULTS Lymphocytes, abs 0.8 0.8 - 3.3 K/cumm CDR HISTORICAL RESULTS Monocytes, absolute 0.3 0.2 - 0.8 K/cumm CDR HISTORICAL RESULTS Eosinophils, abs 0.0 0.0 - 0.5 K/cumm CDR HISTORICAL RESULTS Basophils, abs 0.0 0.0 - 0.1 K/cumm CDR HISTORICAL RESULTS Immature granulocyte, abs 0.0 0.0 - 0.1 K/cumm CDR HISTORICAL RESULTS NRBC, abs 0.00 0.00 - 0.01 K/cumm CDR HISTORICAL RESULTS Blood specimen (specimen) 05/04/2016 7:59 AM CDT Sana Henry MD LAB BLOOD ORDERABLES F inal Result CDR HISTORICAL RESULTS * Blood ABO, Rh, indirect ab screen (05/04/2016 7:45 AM CDT) ABO typing O CDR HISTO RICAL RESULTS Rho(D) typing Positive CDR HI STORICAL RESULTS Roxann, indirect Negative CDR HISTORICAL RESULTS Blood specimen (specimen) 05/04/2016 7:45 AM CDT Sana Henry MD LAB BLOOD ORDERABLES F inal Result CDR HISTORICAL RESULTS documented in this encounter Visit Diagnoses Diagnosis Prolonged second stage of labor Third degree perineal laceration during delivery Third-degree perineal laceration, unspecified as to episode of care in Obstructed labor due to shoulder dystocia Attempted application of vacuum extractor and forceps Retention of urine Unspecified retention of urine 38 weeks gestation of Single live documented in this encounter
--- OUTSIDE RECORDS SUMMARY | 2024-08-06 00:50 | XMS_ITS | Encounter Summary ---
Author Organization [facility] Facility Care Team Providers Care Efficiency Engineer Name Role Phone Unavailable Primary Care Provider Unavailabl e Encounter Details Date Type Department Care Team (Late st Contact Info) Description 05/08/2016 8:13 PM CDT - 05/09/2016 11:50 AM CDT Hospital Encounter [facility] Angeline Henry MD [address] [place] [address] Other complications of the puerperium, not elsewhere classified; Calculus of kidney Social History Tobacco Use Types Packs/Day Years Used Date Smoking Tobacco: Never Alcohol Use Standard Drinks/Week Comments Yes 0 (1 standard drink = 0.6 oz pur e alcohol) Comments Unknown Sex and Gender Information Value Date Recorded Sex Assigned at Not on file 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 Gender Identity Not on file Sexual Orientation Not on file documented as of this encounter Last Filed Vital Signs Vital Sign Reading Time Taken Comments Blood Pressure 123/80 05/09/2016 6:12 AM CDT Pulse 81 05/09/2016 6:12 AM CDT Temperature - - Respiratory Rate - - Oxygen Saturation - - Inhaled Oxygen Concentration - - Weight 94.7 kg (208 lb 12.4 oz) 05/09/2016 1:08 AM CDT Height 172.7 cm (5' 7.99 ) 05/09/2016 1:08 AM CD T Body Mass Index 31.75 05/09/2016 1:08 AM CDT documented in this encounter Plan of Treatment Not on file documented as of this encounter Procedures Procedure Name Priority Date/Time Associated Diagnosis Comments US ABDOMEN COMPLETE Routine 05/09/2016 1 0:14 AM CDT PLASMA COMPREHENSIVE METABOLIC PANEL Routine 05/09/2016 6:08 AM CDT BLOOD CELL COUNT (CBC), MORPHOLOGIC EXAM Routine 05/09/2016 6:[address] ABDOMEN PELVIS WO CONTRAST Routine 05/09/2016 12:09 AM CDT DISCHARGE LABORATORY CUMULATIVE REPORT 05/09/2016 URINE MICROSCOPY Routine 05/08/2016 8:49 PM CDT PLASMA COMPREHENSIVE METABOLIC PANEL Routine 05/08/2016 8:49 PM CDT BLOOD CELL COUNT (CBC), MORPHOLOGIC EXAM Routine 05/08/2016 8:49 PM CDT URINALYSIS Routine 05/08/2016 3:49 PM CDT URINE MICROBIOLOGY Routine 05/08/2016 12 :00 AM CDT documented in this encounter Results * US Abdomen Complete (05/09/2016 10:14 AM CDT) Anatomical Region Laterality Modality Abdomen N/A Ultrasound 05/09/2016 10:1 4 AM CDT Narrative 05/09/2016 10:43 AM CDT Ultrasound right upper quadrant. HISTORY: 26-year-old woman for 5 days with right-sided abdominal pain. ??History of UTI. ??Comparison made to CT study 05/09/2016. FINDINGS: An area of increased focal echogenicity in the right lobe near the kidney measured 2 x 1.6 x 1.8 cm with possible similar lesion noted in the left lobe superiorly. ??Appearance is consistent with a cavernous hemangioma. ??Portal vein flow was patent. ?? Gallbladder was distended without stones or wall thickening. ??Duct measured 0.5 cm. ??Echogenicity in the region of pancreas was normal. ?? Right kidney measured 15.1 x 5.1 x 6.6 cm. ??Scattered focal areas of echogenicity in the right renal parenchyma were identified consistent with CT demonstration of stones. ??There was distention of the right renal collecting system largely involving the mid and lower pole calyces. ??There was mild urothelial thickening. Abdominal aorta is normal in size, distal iliac artery origins obscured by bowel gas. ??IVC patent. IMPRESSION: 1. ??There is mild fullness of the right renal collecting system involving mid and lower pole calyces with urothelial thickening noted. ??Scattered areas of increased echogenicity in the renal parenchyma noted. ??These likely reflect medullary stones or nephrocalcinosis. ??By report patient with history of urinary tract infection and CT demonstration of perinephric and periureteral fat stranding with mild hydronephrosis.. 2. ??No evidence of cholelithiasis or common bile duct distention. 3. ??Focal area of increased echogenicity in the right lobe and possibly superior left hepatic lobe may represent cavernous hemangiomas. Electronically signed by: Christina Chung M.D. Radiologist: CHRISTINA CHUNG MD ?? Attending: ??ANGELINE HENRY ?? Requesting: DON GUZMAN Requesting Fax: ?? Requesting ID: [id number] Attending Fax: ?? Attending ID: ?? [id number] Completed Time: ?? 05/09/2016 10:14 AM Dictated Time: ?N/A Transcribed Time: 05/09/2016 10:43 AM Signed by: ?CHRISTINA CHUNG MD ?? on 05/09/2016 10:43 AM Report To 1 ID: Report To 1 Name: , Report To 1 FAX: Report To 2 ID: Report To 2 Name: , Report To 2 FAX: Report To 3 ID: Report To 3 Name: , Report To 3 FAX: NextGen Order #: Procedure Note Provider, MD Dariana - 11/29/2016 Ultrasound right upper quadrant. HISTORY: 26-year-old woman for 5 days with right-sided abdominal pain. History of UTI. Comparison made to CT study 05/09/2016. FINDINGS: An area of increased focal echogenicity in the right lobe near the kidney measured 2 x 1.6 x 1.8 cm with possible similar lesion noted in the left lobe superiorly. Appearance is consistent with a cavernous hemangioma. Portal vein flow was patent. Gallbladder was distended without stones or wall thickening. Duct measured 0.5 cm. Echogenicity in the region of pancreas was normal. Right kidney measured 15.1 x 5.1 x 6.6 cm. Scattered focal areas of echogenicity in the right renal parenchyma were identified consistent with CT demonstration of stones. There was distention of the right renal collecting system largely involving the mid and lower pole calyces. There was mild urothelial thickening. Abdominal aorta is normal in size, distal iliac artery origins obscured by bowel gas. IVC patent. IMPRESSION: 1. There is mild fullness of the right renal collecting system involving mid and lower pole calyces with urothelial thickening noted. Scattered areas of increased echogenicity in the renal parenchyma noted. These likely reflect medullary stones or nephrocalcinosis. By report patient with history of urinary tract infection and CT demonstration of perinephric and periureteral fat stranding with mild hydronephrosis.. 2. No evidence of cholelithiasis or common bile duct distention. 3. Focal area of increased echogenicity in the right lobe and possibly superior left hepatic lobe may represent cavernous hemangiomas. Electronically signed by: Christina Chung M.D. Radiologist: CHRISTINA CHUNG MD Attending: ANGELINE HENRY Requesting: DON GUZMAN Requesting Requesting ID: [id number] Attending Attending ID: [id number] Completed Time: 05/09/2016 10:14 AM Dictated Time: N/A Transcribed Time: 05/09/2016 10:43 AM Signed by: CHRISTINA CHUNG MD on 05/09/2016 10:43 AM Report To 1 ID: Report To 1 Name: , Report To 1 FAX: Report To 2 ID: Report To 2 Name: , Report To 2 FAX: Report To 3 ID: Report To 3 Name: , Report To 3 FAX: NextGen Order #: us Historical Provider MD CURTIS US PROCEDURES Final R esult * (ABNORMAL) Blood cell count (CBC), morphologic exam (05/09/2016 6:08 AM CDT) WBC 5.5 3.8 - 9.9 K/cumm CDR HISTORICAL RESULTS RBC 3.42(L) 3.90 - 5.20 M/cumm CDR HISTORICAL RESULTS Hgb 9.9(L) 11.9 - 15.5 g/dl CDR HISTORICAL RESULTS Hct 29.9(L) 35.6 - 45.5 % CDR HISTORICAL RESULTS MCV 87.4 81.3 - 96.4 fl CDR HISTORICAL RESULTS MCH 28.9 27.1 - 33.3 pg CDR HISTORICAL RESULTS MCHC 33.1 32.3 - 35.7 g/dl CDR HISTORICAL RESULTS RDW 42.9 35.7 - 48.1 fl CDR HISTORICAL RESULTS Rdw 13.5 11.1 - 14.9 % CDR HISTORICAL RESULTS Platelets 187 150 - 400 K/cumm CDR HISTORICAL RESULTS MPV 10.1 9.1 - 12.3 fl CDR HISTORICAL RESULTS Neutrophils 72.5 44.0 - 80.0 % CDR HISTORICAL RESULTS Lymphocytes 18.4 13.0 - 44.0 % CDR HISTORICAL RESULTS Monos 6.3 2.0 - 11.0 % CDR HISTORICAL RESULTS Eosinophils 2.2 0.0 - 6.0 % CDR HISTORICAL RESULTS Basophils 0.4 0.0 - 3.0 % CDR HISTORICAL RESULTS Immature granulocytes 0.2 0.0 - 1.0 % CDR HISTORICAL RESULTS NRBC 0.0 0.0 - 0.2 % CDR HISTORICAL RESULTS Neutrophils, abs 4.0 1.7 - 6.5 K/cumm CDR HISTORICAL RESULTS Lymphocytes, abs 1.0 0.8 - 3.3 K/cumm CDR HISTORICAL RESULTS Monocytes, absolute 0.4 0.2 - 0.8 K/cumm CDR HISTORICAL RESULTS Eosinophils, abs 0.1 0.0 - 0.5 K/cumm CDR HISTORICAL RESULTS Basophils, abs 0.0 0.0 - 0.1 K/cumm CDR HISTORICAL RESULTS Immature granulocyte, abs 0.0 0.0 - 0.1 K/cumm CDR HISTORICAL RESULTS NRBC, abs 0.00 0.00 - 0.010 K/cumm CDR HISTORICAL RESULTS Blood specimen (specimen) 05/09/2016 6:08 AM CDT Don Guzman DO LAB BLOOD ORDERABLES Maryellen ye Result Performing Organization Address City/State/[facility] Co de Phone Number CDR HISTORICAL RESULTS * (ABNORMAL) Plasma comprehensive metabolic panel (05/09/2016 6:08 AM CDT) Sodium 140 136 - 146 mmol/L CDR HISTORICAL RESULTS K, pl 3.6 3.3 - 4.9 mmol/L CDR HISTORICAL RESULTS Chloride 109(H) 98 - 108 mmol/L CDR HISTORICAL RESULTS CO2 25 22 - 33 mmol/L CDR HISTORICAL RESULTS BUN 8 7 - 18 mg/dl CDR HISTORICAL RESULTS Glucose 91 70 - 140 mg/dl CDR HISTORICAL RESULTS Comment: Glucose is assumed to be non-fasting. ?? Fasting Glucose normal ranges are: 0 days - 2 months: ? 40 mg/dL - 100 mg/dL 2 months - 999 years: ?70 mg/dL - 99 mg/dL Creatinine 0.56 0.50 - 1.50 mg/dl CDR HISTORICAL RESULTS eGFR >60 ml/min/1.7 3 m2 CDR HISTORICAL RESULTS Comment: GFR Reference Range: = > 60 mL/min/1.73 m2 This result has been calculated assuming the patient is Non-. ??If the patient is , please multiply this result by 1.21. The GFR value is not recommended for medication dose adjustment for renal function, creatinine clearance values should be used. Calcium 8.5 8.5 - 10.5 mg/dl CDR HISTORICAL RESULTS Bilirubin 0.5 0.1 - 1.2 mg/dl CDR HISTORICAL RESULTS Protein, pl 5.3(L) 6.0 - 8.5 g/dl CDR HISTORICAL RESULTS Alb 2.2(L) 3.4 - 5.0 g/dl CDR HISTORICAL RESULTS Alk phos 108 38 - 126 IUnits/L CDR HISTORICAL RESULTS ALT 34 14 - 54 IUnits/L CDR HISTORICAL RESULTS AST 27 15 - 41 IUnits/L CDR HISTORICAL RESULTS Plasma 05/09/2016 6:08 AM CDT Don Guzman DO LAB BLOOD ORDERABLES Maryellen l Result CDR HISTORICAL RESULTS * CT Abdomen Pelvis WO Contrast (05/09/2016 12:09 AM CDT) Anatomical Region Laterality Modality Body N/A Computed Tomogra phy 05/09/2016 12:0 9 AM CDT Narrative 05/09/2016 5:[address] KUB. HISTORY: Abdominal pain. ??Recent delivery 5 days earlier with kidney stones and right flank pain. FINDINGS: Bilateral small pleural effusions are identified. ??Included portions of liver and spleen appear to be of normal size and contour. ??There are nonobstructing left intrarenal calculi. No definite left ureteral calculus. ??There are multiple intrarenal calculi in the right kidney with mild right-sided hydronephrosis and infiltrative changes adjacent to the right kidney and ureter. ??The right ureter is dilated and is difficult to follow in the low pelvis due to the enlarged uterus associated with recent status post I do not see a definite right ureteral calculus at this time. ??Given the hydronephrosis and infiltrative changes adjacent to the kidney and right ureter, the possibility of recent passage of a stone needs to be considered as well. ??There is a Mendoza catheter in a nondistended bladder. ??Uterus is enlarged. ??Trace amount of fluid in the pelvis. ?? There is a small umbilical hernia containing fat. IMPRESSION: 1. ??Bilateral intrarenal calculi as described above. 2. ??Mild right-sided hydronephrosis and hydroureter. ??A definite right ureteral calculus is not seen. ??The hydronephrosis and infiltrative changes adjacent to the right kidney and ureter could be related to recent passage of a calculus versus non-radiopaque calculus or clot. 3. ??Enlarged uterus with Mendoza catheter in a collapsed bladder. 4. ??Tiny bilateral pleural effusions with trace amount of fluid in the pelvis. Edited by: WILLIS KHAN Electronically signed by: Umer Hager M.D. Radiologist: UMER HAGER ?? Attending: ??UNKNOWN, NOTINFILE ?? Requesting: DON GUZMAN Requesting Fax: ?? Requesting ID: [id number] Attending Fax: ?? Attending ID: ?? [id number] Completed Time: ?? 05/09/2016 00:09 AM Dictated Time: ?05/09/2016 09:09 AM Transcribed Time: 05/09/2016 09:20 AM Signed by: ?UMER HAGER ?? on 05/09/2016 5:44 PM Report To 1 ID: Report To 1 Name: , Report To 1 FAX: Report To 2 ID: Report To 2 Name: , Report To 2 FAX: Report To 3 ID: Report To 3 Name: , Report To 3 FAX: NextGen Order #: Procedure Note Provider, MD Dariana - 11/29/2016 CT KUB. HISTORY: Abdominal pain. Recent delivery 5 days earlier with kidney stones and right flank pain. FINDINGS: Bilateral small pleural effusions are identified. Included portions of liver and spleen appear to be of normal size and contour. There are nonobstructing left intrarenal calculi. No definite left ureteral calculus. There are multiple intrarenal calculi in the right kidney with mild right-sided hydronephrosis and infiltrative changes adjacent to the right kidney and ureter. The right ureter is dilated and is difficult to follow in the low pelvis due to the enlarged uterus associated with recent status post I do not see a definite right ureteral calculus at this time. Given the hydronephrosis and infiltrative changes adjacent to the kidney and right ureter, the possibility of recent passage of a stone needs to be considered as well. There is a Mendoza catheter in a nondistended bladder. Uterus is enlarged. Trace amount of fluid in the pelvis. There is a small umbilical hernia containing fat. IMPRESSION: 1. Bilateral intrarenal calculi as described above. 2. Mild right-sided hydronephrosis and hydroureter. A definite right ureteral calculus is not seen. The hydronephrosis and infiltrative changes adjacent to the right kidney and ureter could be related to recent passage of a calculus versus non-radiopaque calculus or clot. 3. Enlarged uterus with Mendoza catheter in a collapsed bladder. 4. Tiny bilateral pleural effusions with trace amount of fluid in the pelvis. Edited by: WILLIS KHAN Electronically signed by: Umer Hager M.D. Radiologist: UMER HAGER Attending: UNKNOWN, NOTINFILE Requesting: DON GUZMAN Requesting Requesting ID: [id number] Attending Attending ID: [id number] Completed Time: 05/09/2016 00:09 AM Dictated Time: 05/09/2016 09:09 AM Transcribed Time: 05/09/2016 09:20 AM Signed by: UMER HAGER on 05/09/2016 5:44 PM Report To 1 ID: Report To 1 Name: , Report To 1 FAX: Report To 2 ID: Report To 2 Name: , Report To 2 FAX: Report To 3 ID: Report To 3 Name: , Report To 3 FAX: NextGen Order #: Historical Provider IMUlises CT PROCEDURES Final R esult * DISCHARGE LABORATORY CUMULATIVE REPORT (05/09/2016) Narrative 05/09/2016 Ordered by an unspecified provider. Historical Provider LAB BLOOD ORDERABLES Maryellen l Result * (ABNORMAL) Blood cell count (CBC), morphologic exam (05/08/2016 8:49 PM CDT) WBC 8.1 3.8 - 9.9 K/cumm CDR HISTORICAL RESULTS RBC 3.55(L) 3.90 - 5.20 M/cumm CDR HISTORICAL RESULTS Hgb 10.2(L) 11.9 - 15.5 g/dl CDR HISTORICAL RESULTS Hct 30.9(L) 35.6 - 45.5 % CDR HISTORICAL RESULTS MCV 87.0 81.3 - 96.4 fl CDR HISTORICAL RESULTS MCH 28.7 27.1 - 33.3 pg CDR HISTORICAL RESULTS MCHC 33.0 32.3 - 35.7 g/dl CDR HISTORICAL RESULTS RDW 42.2 35.7 - 48.1 fl CDR HISTORICAL RESULTS Rdw 13.3 11.1 - 14.9 % CDR HISTORICAL RESULTS Platelets 223 150 - 400 K/cumm CDR HISTORICAL RESULTS MPV 10.3 9.1 - 12.3 fl CDR HISTORICAL RESULTS Neutrophils 73.9 44.0 - 80.0 % CDR HISTORICAL RESULTS Lymphocytes 17.6 13.0 - 44.0 % CDR HISTORICAL RESULTS Monos 6.0 2.0 - 11.0 % CDR HISTORICAL RESULTS Eosinophils 2.1 0.0 - 6.0 % CDR HISTORICAL RESULTS Basophils 0.2 0.0 - 3.0 % CDR HISTORICAL RESULTS Immature granulocytes 0.2 0.0 - 1.0 % CDR HISTORICAL RESULTS NRBC 0.0 0.0 - 0.2 % CDR HISTORICAL RESULTS Neutrophils, abs 6.0 1.7 - 6.5 K/cumm CDR HISTORICAL RESULTS Lymphocytes, abs 1.4 0.8 - 3.3 K/cumm CDR HISTORICAL RESULTS Monocytes, absolute 0.5 0.2 - 0.8 K/cumm CDR HISTORICAL RESULTS Eosinophils, abs 0.2 0.0 - 0.5 K/cumm CDR HISTORICAL RESULTS Basophils, abs 0.0 0.0 - 0.1 K/cumm CDR HISTORICAL RESULTS Immature granulocyte, abs 0.0 0.0 - 0.1 K/cumm CDR HISTORICAL RESULTS NRBC, abs 0.00 0.00 - 0.010 K/cumm CDR HISTORICAL RESULTS Blood specimen (specimen) 05/08/2016 8:49 PM CDT Don Guzman DO LAB BLOOD ORDERABLES Maryellen belcher Result CDR HISTORICAL RESULTS * (ABNORMAL) Plasma comprehensive metabolic panel (05/08/2016 8:49 PM CDT) Sodium 140 136 - 146 mmol/L CDR HISTORICAL RESULTS K, pl 3.8 3.3 - 4.9 mmol/L CDR HISTORICAL RESULTS Chloride 106 98 - 108 mmol/L CDR HISTORICAL RESULTS CO2 26 22 - 33 mmol/L CDR HISTORICAL RESULTS BUN 10 7 - 18 mg/dl CDR HISTORICAL RESULTS Glucose 104 70 - 140 mg/dl CDR HISTORICAL RESULTS Comment: Glucose is assumed to be non-fasting. ?? Fasting Glucose normal ranges are: 0 days - 2 months: ? 40 mg/dL - 100 mg/dL 2 months - 999 years: ?70 mg/dL - 99 mg/dL Creatinine 0.70 0.50 - 1.50 mg/dl CDR HISTORICAL RESULTS eGFR >60 ml/min/1.7 3 m2 CDR HISTORICAL RESULTS Comment: GFR Reference Range: = > 60 mL/min/1.73 m2 This result has been calculated assuming the patient is Non-. ??If the patient is , please multiply this result by 1.21. The GFR value is not recommended for medication dose adjustment for renal function, creatinine clearance values should be used. Calcium 8.9 8.5 - 10.5 mg/dl CDR HISTORICAL RESULTS Bilirubin 0.5 0.1 - 1.2 mg/dl CDR HISTORICAL RESULTS Protein, pl 5.5(L) 6.0 - 8.5 g/dl CDR HISTORICAL RESULTS Alb 2.4(L) 3.4 - 5.0 g/dl CDR HISTORICAL RESULTS Alk phos 121 38 - 126 IUnits/L CDR HISTORICAL RESULTS ALT 41 14 - 54 IUnits/L CDR HISTORICAL RESULTS AST 41 15 - 41 IUnits/L CDR HISTORICAL RESULTS Plasma 05/08/2016 8:49 PM CDT Don Guzman DO LAB BLOOD ORDERABLES Maryellen l Result Performing Organization Address [facility] de Phone Number CDR HISTORICAL RESULTS * (ABNORMAL) Urine microscopy (05/08/2016 8:49 PM CDT) RBC, ur Too numerous to count.(A) 0 - 2 /hpf CDR HISTORICAL RESULTS WBC, ur Packed(A) 0-2,3-5 /hpf CDR HISTORICAL RESULTS Bacteria, ur 1+ /hpf CDR HIS TORICAL RESULTS Epithelial cells, squamous, ur None Seen /lpf CDR HISTORICAL RESULTS Mucus, ur 1+ /lpf CDR HISTOR ICAL RESULTS Urine 05/08/2016 8:49 PM CDT Robbin Bolden DO LAB BLOOD ORDERABLES Final Res ult Performing Organization Address [facility] Co de Phone Number CDR HISTORICAL RESULTS * (ABNORMAL) Urinalysis (05/08/2016 3:49 PM CDT) Color, ur Yellow Colorless,St raw,Yellow CDR HISTORICAL RESULTS Clarity, ur Cloudy(A) Clear CDR HIST ORICAL RESULTS Specific gravity, ur 1.020 1.005 - 1.030 CDR HISTORICAL RESULTS pH, ur 6.0 5.0 - 8.0 CDR HISTOR ICAL RESULTS Leukocyte esterase, ur 500(A) Negative spring/mcl CDR HISTORICAL RESULTS Nitrites, ur Negative Negative CDR HIS TORICAL RESULTS Protein, ur 100(A) Negative mg/dl CDR HISTORICAL RESULTS Glucose, ur, quant Normal Normal mg/dl CDR HISTORICAL RESULTS Ketones, ur, quant Negative Negative mg/dl CDR HISTORICAL RESULTS Urobilinogen, quant, ur Normal Normal mg/dl CDR HISTORICAL RESULTS Bilirubin, ur Negative Negative mg/dl CDR HISTORICAL RESULTS U Blood 3+(A) Negative CDR HISTOR ICAL RESULTS Urine 05/08/2016 3:49 PM CDT Narrative CDR HISTORICAL RESULTS - 05/08/2016 4:30 PM CDT Urine culture was reflexed us Robbin Bertrand Yuan DO LAB BLOOD ORDERABLES Final Res ult Performing Organization Address City/State/[facility] Co de Phone Number CDR HISTORICAL RESULTS * Urine Microbiology (05/08/2016 12:00 AM CDT) 05/08/2016 12:0 0 AM CDT Narrative CDR HISTORICAL RESULTS - 05/10/2016 1:27 PM CDT ? [facility] Laboratory Microbiology ?[address] ??[place], [place] ??[address] ? Tele: ? Jarret Ball M.D. - Security Auditor - Ernesto Santiago - ? Livestock Feeder ?? Patient: ETHAN STAPLETON ? Admission #: ??[id number] ?? : 1990 ?Location:[id number] ?? Gender: F ?? Admit Date: 05/08/2016 ? = = = = = = = = = = = = = = = = = = = = = = = = = = = = = = = = = = = = = = Urine Culture ? Final ?? Urine ? Cath Indwelling ?? Collected: ??05/08/2016 20:49 ?? Inoculated: ??05/08/2016 21:30 ?? Report Date: ??05/10/2016 10:53 ? This culture was reflexed from a Urinalysis result ?? Isolate 1: ?>100,000 colonies/ml ?Escherichia coli ?Isolate 1: ?Escherichia ?coli ? Antibiotics: ?? Ampicillin ? Resistant ?? Ampicillin/sulbactam Intermedia ?te ?? Cefazolin ?Susceptible ?? Ciprofloxacin ?Susceptible ?? Ertapenem ?Susceptible ?? Gentamicin ? Susceptible ?? Levofloxacin ? Susceptible ?? Meropenem ?Susceptible Isolate 1: ?Escherichia ?coli ?? Nitrofurantoin ? Susceptible ?? Piperacillin ? Resistant ?? Tobramycin ? Susceptible ?? Trimethoprim/Sulfa ?? Resistant ? Antibiotics: ?? ESBL ? NEG = = = = = = = = = = = = = = = = = = = = = = = = = = = = = = = = = = = = = ? Physician: ?[facility] Microbiology Report-ClinDesk ? us Historical Provider LAB MICROBIOLOGY - GENERA L ORDERABLES Final Result CDR HISTORICAL RESULTS documented in this encounter Visit Diagnoses Diagnosis Other complications of the puerperium, not elsewhere classified Calculus of kidney documented in this encounter
--- OUTSIDE RECORDS SUMMARY | 2024-08-06 00:50 | XMS_ITS | Encounter Summary ---
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 Name Role Phone Unavailable Primary Care Provider Unavailabl e Encounter Details Date Type Department Care Team (Late st Contact Info) Description 02/10/2016 4:01 PM CDT - 02/10/2016 11:59 PM CDT Hospital Encounter [facility] Sana Henry MD [address] [place] [address] Encounter for screening of mother Social History Tobacco Use Types Packs/Day Years Used Date Smoking Tobacco: Never Alcohol Use Standard Drinks/Week Comments Yes 0 (1 standard drink = 0.6 oz pur e alcohol) Comments Unknown Sex and Gender Information Value Date Recorded Sex Assigned at Not on file 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 Gender Identity Not on file Sexual Orientation Not on file documented as of this encounter Plan of Treatment Not on file documented as of this encounter Procedures Procedure Name Priority Date/Time Associated Diagnosis Comments PLASMA GLUCOSE TOLERANCE, 50 G Routine 02/10/2016 4:04 PM CDT BLOOD CELL COUNT (CBC), MORPHOLOGIC EXAM Routine 02/10/2016 4:04 PM CDT DISCHARGE LABORATORY CUMULATIVE REPORT 02/10/2016 documented in this encounter Results * Blood cell count (CBC), morphologic exam (02/10/2016 4:04 PM CDT) WBC 7.9 3.8 - 9.9 K/cumm CDR HISTORICAL RESULTS RBC 4.12 3.90 - 5.20 M/cumm CDR HISTORICAL RESULTS Hgb 12.2 11.9 - 15.5 g/dl CDR HISTORICAL RESULTS Hct 36.8 35.6 - 45.5 % CDR HISTORICAL RESULTS MCV 89.3 81.3 - 96.4 fl CDR HISTORICAL RESULTS MCH 29.6 27.1 - 33.3 pg CDR HISTORICAL RESULTS MCHC 33.2 32.3 - 35.7 g/dl CDR HISTORICAL RESULTS RDW 43.5 35.7 - 48.1 fl CDR HISTORICAL RESULTS Rdw 13.3 11.1 - 14.9 % CDR HISTORICAL RESULTS Platelets 243 150 - 400 K/cumm CDR HISTORICAL RESULTS MPV 10.6 9.1 - 12.3 fl CDR HISTORICAL RESULTS Neutrophils 74.2 44.0 - 80.0 % CDR HISTORICAL RESULTS Lymphocytes 17.9 13.0 - 44.0 % CDR HISTORICAL RESULTS Monos 6.5 2.0 - 11.0 % CDR HISTORICAL RESULTS Eosinophils 0.9 0.0 - 6.0 % CDR HISTORICAL RESULTS Basophils 0.1 0.0 - 3.0 % CDR HISTORICAL RESULTS Immature granulocytes 0.4 0.0 - 1.0 % CDR HISTORICAL RESULTS NRBC 0.0 0.0 - 0.2 % CDR HISTORICAL RESULTS Neutrophils, abs 5.9 1.7 - 6.5 K/cumm CDR HISTORICAL RESULTS [...] K/cumm CDR HISTORICAL RESULTS Blood specimen (specimen) 02/10/2016 4:04 PM CDT us Sana Henry MD LAB BLOOD ORDERABLES F inal Result CDR HISTORICAL RESULTS * Plasma glucose tolerance, 50 g (02/10/2016 4:04 PM CDT) Glucose, 50g, 1 hr, pl 95 70 - 140 mg/dl CDR HISTORICAL RESULTS Plasma 02/10/2016 4:04 PM CDT us Sana Henry MD LAB BLOOD ORDERABLES F inal Result CDR HISTORICAL RESULTS * DISCHARGE LABORATORY CUMULATIVE REPORT (02/10/2016) Narrative 02/10/2016 Ordered by an unspecified provider. us Historical Provider LAB BLOOD ORDERABLES Maryellen l Result documented in this encounter Visit Diagnoses Diagnosis Encounter for screening of mother documented in this encounter
--- OUTSIDE RECORDS SUMMARY | 2024-08-06 00:50 | XMS_ITS | Encounter Summary ---
Author Organization [facility] Address [address] [place] [address] Care Team Providers Care Php Website Developer Name Role Phone No, Physician Primary Care Provider [phone] Reason for Referral * Diagnostic Imaging (Routine) - Closed Specialty Diagnoses / Procedures Referred By Contac t Referred To Contact Diagnoses Amenorrhea Procedures US Transvaginal Sana Blackburn MD Phone: tel: fax: [id number] [place] [address] Referral ID Status Reason Start Date Expiration Date Visits Re quested Visits Authorized [id number] Closed 06/18/2018 12/28/2019 1 1 OL LADY Reason for Visit * Reason Comments Amenorrhea Encounter Details Date Type Department Care Team (Latest Contact Info) Description 06/18/2018 9:30 AM PATROL LADY [facility] [address] [place] [address] Amenorrhea (Primary Dx) Social History Tobacco Use Types Packs/Day Years Used Date Smoking Tobacco: Never Alcohol Use Standard Drinks/Week Comments Yes 0 (1 standard drink = 0.6 oz pur e alcohol) Comments No Sex and Gender Information Value Date Recorded Sex Assigned at Not on file Legal Sex Female 9:07 PM PATROL LADY Gender Identity Not on file Sexual Orientation Not on file documented as of this encounter Plan of Treatment Not on file documented as of this encounter Procedures Procedure Name Priority Date/Time Associated Diagnosis Comments US TRANSVAGINAL Schedule Routine, Read Routine (OP Routine) 06/18/2018 9:44 AM PATROL LADY Amenorrhea documented in this encounter Results * US Transvaginal (06/18/2018 9:44 AM PATROL LADY) Anatomical Region Laterality Modality Pelvis N/A Ultrasound Narrative 06/18/2018 10:17 AM PATROL LADY Indication:amenorrhea Exam comments: Polycystic ovaries OFFICIAL REPORT IN [facility] Sana Blackburn MD us Sana Blackburn MD IMG US PROCEDURES Edit ed Result - Final documented in this encounter Visit Diagnoses Diagnosis Amenorrhea- Primary Absence of menstruation documented in this encounter Care Teams Php Website Developer Relationship Specialty Start Date End Date No, Physician PCP - General 05/25/18 04/13/23 documented as of this encounter
--- OUTSIDE RECORDS SUMMARY | 2024-08-06 00:50 | XMS_ITS | Encounter Summary ---
Author Organization [facility] Address [address] [place] [address] Phone Care Team Providers Care Hotel Night Auditor Name Role Phone Stephanie Pearson Primary Care Provider + No, Physician Unavailable Reason for Visit * Consultation (Routine) - Closed Specialty Diagnoses / Procedures Referred By Contdread t Referred To Contact Endocrinology Diagnoses PCOS (polycystic ovarian syndrome) Stephanie Pearson PA [address] [place] [address] Phone: tel: fax: [facility] (All Locations) Referral ID Status Reason Start Date Expiration Date V isits Requested Visits Authorized [id number] Closed Specialty Services Required 04/14/2023 05/13/2024 1 1 Encounter Details Date Type Department Care Team (Latest Contact Info) Description 09/07/2023 3:00 PM TIMBER CUTTER Office Visit [facility] Endocrinology Metabolism and Lipid [address] 5th [place] [address] [place] [phone] Taran Trotter MD [address] [place] [address] Elevated testosterone level in female (Primary Dx); PCOS (polycystic ovarian syndrome) Social History Tobacco Use Types Packs/Day Years Used Date Smoking Tobacco: Never Tobacco Cessation:Counseling Given: Not Answered Alcohol Use Standard Drinks/Week Comments Yes 0 (1 standard drink = 0.6 oz pur e alcohol) Comments No Sex and Gender Information Value Date Recorded Sex Assigned at Not on file Legal Sex Female 9:07 PM TIMBER CUTTER Gender Identity Not on file Sexual Orientation Not on file documented as of this encounter Last Filed Vital Signs Vital Sign Reading Time Taken Comments Blood Pressure 133/88 09/07/2023 3:40 PM TIMBER CUTTER Pulse 108 09/07/2023 3:40 PM TIMBER CUTTER Temperature - - Respiratory Rate - - Oxygen Saturation - - Inhaled Oxygen Concentration - - Weight 76.7 kg (169 lb) 09/07/2023 3:40 PM TIMBER CUTTER Height 175.3 cm (5' 9 ) 09/07/2023 3:40 PM TIMBER CUTTER Body Mass Index 24.96 09/07/2023 3:40 PM TIMBER CUTTER documented in this encounter Patient Instructions * Patient Instructions* Taran Trotter MD - 09/07/2023 3:00 PM TIMBER CUTTER Images from the original note were not included. PCOS diagnosis of exclusion 17OHP to rule out CAH, blood work morning fasting during follicular phase (first week after period stopped) 1mg dexa suppression to r/o sesar . take 1mg dexamethasone at night right before sleep, then do the morning fasting dexamethasone level and cortisol level the morning after sleep. If you have tests done and didn't get my comments/plans on the testing results in two week, please call and inform us that the test is done. There are occasions when the results were not sent to the provider directly or sent at a much later time. Office phone and fax Specialty [facility] (Option 1 speak to gamma ray operator; Option 3 speak to a nurse) Talk with OB regarding OCP uses. Diet modification. --Limit food intake that tastes sweet; limit adding table sugar to drinks or food. --Limit alcohol and other beverage that has calories. --Moderate pasta, bread, and rice intake. Use whole grain or brown rice or multigrain whenever possible. --Limit cholesterol intake, mainly from animal skin/fat, red meat, but also can be from certain shell sea food, and egg yolk. --Moderate protein intake 2. Exercise --Ideally exercise everyday moderate intensity for 30 minutes, if tolerated. If can't tolerate moderate intensity, consider a light activity such as walking or other tolerated activities for 45 to 60minutes. --Combine exercise with diet will improve weight management, lower cholesterol, blood pressure and reduce glucose. In addition, consistent/daily exercise improves insulin action and further improves glucose readings. 3. Weight loss --All weight loss methods can work if calorie intake is counted accurately and subtracted 250-500 Kcal from the daily requirement that maintains your body weight. Here are two methods you can use forcalorie calculation: ER CUTTER ER CUTTER ER CUTTER ER CUTTER ER CUTTER documented in this encounter Ordered Prescriptions Prescription Sig Dispense Quantity Refills Last Filled Start Date End Date dexAMETHasone (DECADRON) 1 mg tabletIndications :PCOS (polycystic ovarian syndrome),Elevate d testosterone level in female Take 1 tablet at bedtime around 11pm and have your fasting labs cortisol and dexamethasone done the next morning around or before 8am 1 tablet 09/07/2023 documented in this encounter Progress Notes * Taran Trotter MD - 09/07/2023 3:00 PM CST Endocrine Outpatient Visit Note Date: 09/07/2023 VIKKI Floridalma Stapleton is a pleasant 33 y.o. female coming today for evaluation of PCOS, weight loss difficulty. PCOS: Testosterone level high: elevated. 2017 2022 Imaging evidence of polycystic ovaries: US showed polycystic change per pt. Irregular menses: yes Regularity: irregular No LMP recorded. # 1 - Date: 04/2016, Sex: Male, Weight: 3.912 kg (8 lb 10 oz), GA: 38w0d, Delivery: Vaginal, Vacuum(Extractor), Apgar1: None, Apgar5: None, Living: Living, Comments: None Plan for in near future: NO Seen OB 2018 Latest Reference Range & Units 06/18/18 08:40 Estradiol pg/mL 53.6 FSH mIUnits/mL 6.52 LH mIUnits/mL 20.78 Prolactin 4.790 - 23.300 ng/mL 9.280 Testosterone 8.40 - 48.10 ng/dL 81.98 (H) TSH 0.30 - 4.20 mcIUnit/mL 2.75 (H): Data is abnormally high 07/2023 tSH 2.534 07/2023 chol 208 LDL 137, HDL 46, TG 123, Bmp unremarkble GFR>90 02/2023 A1c 4.6 02/2023 total testosterone 102 (<45) free testosterone 8.5 (0.1-6.4) Current Outpatient Medications Medication Sig Dispense Refill buPROPion XL (WELLBUTRIN XL) 300 mg 24 hr tablet Take 1 tablet (300 mg total) by mouth drafter civil engineering before breakfast progesterone (PROMETRIUM) 100 mg capsule Take 1 capsule (100 mg total) by mouth daily dexAMETHasone (DECADRON) 1 mg tablet Take 1 tablet at bedtime around 11pm and have your fasting labs cortisol and dexamethasone done the next morning around or before 8am 1 tablet 0 No current facility-administered medications for this visit. Patient has no known allergies. Past Medical History: Diagnosis Date No known health problems Past Surgical History: Procedure Laterality Date NO PAST SURGERIES Social History Tobacco Use Smoking status: Never Smokeless tobacco: None Substance and Sexual Activity Alcohol use: Yes Drug use: None Sexual activity: None Family History Problem Relation Age of Onset Colon cancer Maternal Grandmother Cancer, colon; Other Other No family history of Cancer, breast; Other Other No family history of Cancer, cervical; Other Other No family history of Cancer, colon; ROS: Endocrine: Negative for cold intolerance, heat intolerance, polydipsia, polyphagia and polyuria. Constitutional: Negative for chills, diaphoresis, and fever. Skin: Negative for color change and rash. HENT: Negative for congestion, mouth sores, rhinorrhea. Eyes: Negative for discharge and redness. Respiratory: Negative for apnea, cough and shortness of breath. Cardiovascular: Negative for chest pain. Gastrointestinal: Negative for abdominal pain, nausea and vomiting. Musculoskeletal: Negative for gait problem and neck stiffness. Neurological: Negative facial asymmetry, speech difficulty and weakness. Psychiatric/Behavioral: Negative for decreased concentration and mood worthy. BP 133/88 Pulse 108 Ht 175.3 cm (5' 9 ) Wt 76.7 kg (169 lb) BMI 24.96 kg/m?? Body mass index is 24.96 kg/m??. Body surface area is 1.93 meters squared. Wt Readings from Last 3 Encounters: 09/07/23 76.7 kg (169 lb) 06/11/18 84.8 kg (187 lb) 06/15/16 82.1 kg (181 lb) BMI Readings from Last 3 Encounters: 09/07/23 24.96 kg/m?? 06/11/18 29.29 kg/m?? 06/15/16 28.35 kg/m?? Physical Exam: Gen : no acute distress, alert, appropriate Skin : turgor normal, warm and dry HENT : normocephalic, atraumatic, moist mucus membranes Eyes : conjunctiva clear, anicteric, no proptosis/exophthalmos/lid lag, EOMI Pulm : non-labored, on room air, breathing normally CV : no JVD, no SOB Abd : soft, non-tender Musculoskeletal: range of motion unremarkable Extr : atraumatic Neuro : alert, speech fluent, comprehension intact, moving all extremities Psych : cooperative, appropriate affect & mood Assessment and Plan PCOS Diagnosis of exclusion. TFT and prolactin nL -- ordered r/o CAH and sesar. No sesar phenotype. Education: --Elevated Testosterone: risk for hirsutism, acnes, male pattern alopecia; insulin resistance, irregular menses, in addition to obstructive sleep apnea, endometrial hyperplasia. --Insulin resistance: risk for lipid, DM, weight gain -- exercise and weight loss can help for testosterone/hormone imbalance and reduce insulin resistance and other risks. Treatment: --Weight loss, increase physical activity --metformin for insulin resistance, if glucose trends up -- OCP for hirsutism, acne -- For severe hirsutism may consider those. But not now. : 1) Spironolacton can add on to OCP 50mg-100mg bid. Need contraceptive, plus watch hypo K. 2) Finasteride (5alpha-2) 2.5mg-5mg/day -- may f/u testosterone trend every one to two years. F/u as needed. Pt will continue f/u OB. Recommend discuss OCP uses. Lab ordered. External lab in [place] 17OHP to rule out CAH, blood work morning fasting during follicular phase (first week after period stopped) 1mg dexa suppression to r/o sesar . take 1mg dexamethasone at night right before sleep, then do the morning fasting dexamethasone level and cortisol level the morning after sleep. ER CUTTER documented in this encounter Plan of Treatment Scheduled Orders Name Type Priority Associated Diagnoses Orde r Schedule 17-Hydroxyprogesterone Lab Routine PCOS (polycystic ovarian syndrome) Elevated testosterone level in female Expected: 11/06/2023 (Approximate), Expires: 09/07/2024 Dexamethasone Lab Routine PCOS (polycystic ovarian syndrome) Elevated testosterone level in female Expected: 11/06/2023 (Approximate), Expires: 09/07/2024 Cortisol Lab Routine PCOS (polycystic ovarian syndrome) Elevated testosterone level in female Expected: 11/06/2023 (Approximate), Expires: 09/07/2024 documented as of this encounter Visit Diagnoses Diagnosis Elevated testosterone level in female- Primary PCOS (polycystic ovarian syndrome) Polycystic ovaries documented in this encounter Discontinued Medications Medication Sig Discontinue Reason Start Date End Da te norgestimate-ethinyl estradiol (ORTHO-CYCLEN) 0.25-35 mg-mcg per tablet Take 1 tablet by mouth daily. 06/20/2018 09/07/2023 medroxyPROGESTERone (PROVERA) 10 mg tablet Take 1 tablet (10 mg total) by mouth daily for 7 days. 06/11/2018 09/07/2023 fluconazole (DIFLUCAN) 150 mg tablet Take 1 tablet by mouth now, may repeat in 3 to 4 days if needed 04/17/2017 09/07/2023 documented as of this encounter Historical Medications * This list may reflect changes made after this encounter. progesterone (PROMETRIUM) 100 mg capsule Take 1 capsule (100 mg total) by mouth daily buPROPion XL (WELLBUTRIN XL) 300 mg 24 hr tablet Take 1 tablet (300 mg total) by mouth drafter civil engineering before breakfast 01/21/2023 added in this encounter Orders Outpatient Referral Count Last Ordered Date Fir st Ordered Date AMB REFERRAL TO ENDOCRINOLOGY 1 09/07/2023 documented in this encounter Care Teams Hotel Night Auditor Relationship Specialty Start Date End Date Stephanie Pearson PA [address] [place] [id number] PCP - General Nurse Practitioner 04/14/23 No, Physician 04/14/23 documented as of this encounter
--- OUTSIDE RECORDS SUMMARY | 2024-08-06 00:50 | XMS_ITS | Encounter Summary ---
Author Organization [facility] Medical Group Address [address] [place] [address] Care Team Providers Care Spaghetti Machine Operator Name Role Phone Unavailable Primary Care Provider Unavailabl e Reason for Visit * Reason Onset Date Comments Vaginal Discharge 04/17/2017 Encounter Details Date Type Department Care Team (Late st Contact Info) Description 04/17/2017 [facility]phone [facility] [address] [place] [phone] Sana Henry MD [address] [place], [place] [id number] Vaginal Discharge Social History Tobacco Use Types Packs/Day Years Used Date Smoking Tobacco: Never Alcohol Use Standard Drinks/Week Comments Yes 0 (1 standard drink = 0.6 oz pur e alcohol) Comments Unknown Sex and Gender Information Value Date Recorded Sex Assigned at Not on file Legal Sex Female 9:07 PM PHARMACY INTAKE TECHNICIAN Gender Identity Not on file Sexual Orientation Not on file documented as of this encounter Ordered Prescriptions Prescription Sig Dispense Quantity Refills Last Filled Start Date End Date fluconazole (DIFLUCAN) 150 mg tablet Take 1 tablet by mouth now, may repeat in 3 to 4 days if needed 2 tablet 04/17/2017 09/07/2023 documented in this encounter Miscellaneous Notes * Telephone Encounter - Usha Fox RN - 04/17/2017 1:26 PM CDT Patient c/o yellowish/green discharge, itching, no bad odors, patient states she is certain it is ayeast infection. Will tx with Diflucan, if no relief, patient to call for appt. erx to [facility]. documented in this encounter Plan of Treatment Not on file documented as of this encounter Visit Diagnoses Not on filedocumented in this encounter
--- OUTSIDE RECORDS SUMMARY | 2024-08-06 00:50 | XMS_ITS | Encounter Summary ---
Author Organization [facility] Care Team Providers Care Laundry Housekeeper Name Role Phone Unavailable Primary Care Provider Unavailabl e Encounter Details Date Type Department Care Team (Late st Contact Info) Description 09/16/2015 1:34 PM SALES FLOOR MANAGER - 09/16/2015 11:59 PM SALES FLOOR MANAGER Hospital Encounter [facility] Sana Henry MD [address] [place] [address] Amenorrhea Social History Tobacco Use Types Packs/Day Years Used Date Smoking Tobacco: Never Alcohol Use Standard Drinks/Week Comments Yes 0 (1 standard drink = 0.6 oz pur e alcohol) Comments Unknown Sex and Gender Information Value Date Recorded Sex Assigned at Not on file Legal Sex Female 9:07 PM SALES FLOOR MANAGER Gender Identity Not on file Sexual Orientation Not on file documented as of this encounter Plan of Treatment Not on file documented as of this encounter Procedures Procedure Name Priority Date/Time Associated Diagnosis Comments SERUM PROGESTERONE Routine 09/16/2015 1: 44 PM SALES FLOOR MANAGER PLASMA CHORIONIC GONADOTROPIN (HCG), QUANTITATIVE Routine 09/16/2015 1:44 PM SALES FLOOR MANAGER DISCHARGE LABORATORY CUMULATIVE REPORT 09/16/2015 documented in this encounter Results * Serum progesterone (09/16/2015 1:44 PM SALES FLOOR MANAGER) Progesterone 10.5 ng/ml HISTORI JOAQUINA RESULTS Comment: Progesterone Reference Ranges: Males: ??0.14 - 2.06 ng/mL Females: ?? Mid-follicular: 0.3 - 1.5 ng/mL Mid-luteal: 5.2 - 18.6 ng/mL Post-menopausal: ??<0.8 ng/mL : First trimester: ??4.7 - 50.7 ng/mL Second trimester: ??19.4 - 45.3 ng/mL Serum 09/16/2015 1:44 PM SALES FLOOR MANAGER Sana Henry MD LAB BLOOD ORDERABLES F inal Result Performing Organization Address City/[facility] Co de Phone Number HISTORICAL RESULTS * (ABNORMAL) Plasma chorionic gonadotropin (HCG), quantitative (09/16/2015 1:44 PM SALES FLOOR MANAGER) HCG, quant 85328.0(H ) 0.0 - 5.0 IUnits/L HISTORICAL RESULTS Comment: Effective March 14, 2014, the B-hCG assay is being offered with new methodology without affecting the normal reference range. No guidelines are available for gestational age related reference ranges. ??Please monitor B-hCG values with serial testing. Plasma 09/16/2015 1:44 PM SALES FLOOR MANAGER Result [facility] Sana Henry MD LAB BLOOD ORDERABLES F inal Result Performing Organization Address [facility] Co de Phone Number HISTORICAL RESULTS * DISCHARGE LABORATORY CUMULATIVE REPORT (09/16/2015) Narrative 09/16/2015 Ordered by an unspecified provider. Historical Provider LAB BLOOD ORDERABLES Maryellen l Result documented in this encounter Visit Diagnoses Diagnosis Amenorrhea Absence of menstruation documented in this encounter
--- OUTSIDE RECORDS SUMMARY | 2024-08-06 00:50 | XMS_ITS | Encounter Summary ---
Author Organization [facility] Care Team Providers Care Overlock Elastic Attacher Name Role Phone Unavailable Primary Care Provider Unavailabl e Encounter Details Date Type Department Care Team (Late st Contact Info) Description 04/22/2016 7:26 PM CDT - 04/22/2016 11:59 PM CDT Hospital Encounter [facility] Sana Henry MD [address] [place] [address] Encounter for screening of mother Social History Tobacco Use Types Packs/Day Years Used Date Smoking Tobacco: Never Alcohol Use Standard Drinks/Week Comments Yes 0 (1 standard drink = 0.6 oz pur e alcohol) Comments Unknown Sex and Gender Information Value Date Recorded Sex Assigned at Not on file Legal Sex Female 9:07 PM DOCUMENT CONTROL MANAGER Gender Identity Not on file Sexual Orientation Not on file documented as of this encounter Plan of Treatment Not on file documented as of this encounter Procedures Procedure Name Priority Date/Time Associated Diagnosis Comments GROUP B STREPTOCOCCUS PCR Routine 04/22/2016 12:00 AM CDT DISCHARGE LABORATORY CUMULATIVE REPORT 04/22/2016 documented in this encounter Results * Group B Streptococcus PCR (04/22/2016 12:00 AM CDT) 04/22/2016 12:0 0 AM CDT Narrative CDR HISTORICAL RESULTS - 04/23/2016 9:33 AM CDT ? [facility] Microbiology ?[address] ??[place] ??[address] ? Tele: ? Jarret Ball M.D. - Production Stage Manager - Ernesto Santiago - ? [place] Rope [employer] ?? Patient: FLORIDALMA STAPLETON ? Admission #: ??[id number] ?? : 1990 ?Location: Laboratory ?? Gender: F ?? Admit Date: 04/22/2016 ? = = = = = = = = = = = = = = = = = = = = = = = = = = = = = = = = = = = = = = Group B Streptococcus PCR ? Genital ?? Collected ? 04/22/2016 ? Expected Result ? 19:33 ?? GBS Screen, PCR NEGATIVE ? NEGATIVE = = = = = = = = = = = = = = = = = = = = = = = = = = = = = = = = = = = = = ? Physician: ?[facility] Microbiology Report-ClinDesk ? Historical Provider LAB MICROBIOLOGY - GENERA L ORDERABLES Final Result Performing Organization Address City/State/[facility] Co de Phone Number CDR HISTORICAL RESULTS * DISCHARGE LABORATORY CUMULATIVE REPORT (04/22/2016) Narrative 04/22/2016 Ordered by an unspecified provider. us Historical Provider LAB BLOOD ORDERABLES Maryellen l Result documented in this encounter Visit Diagnoses Diagnosis Encounter for screening of mother documented in this encounter
--- OUTSIDE RECORDS SUMMARY | 2024-08-06 00:50 | XMS_ITS | Encounter Summary ---
Author Organization [facility] Address [address] [place] [address] Care Team Providers Care Drupal Php Developer Name Role Phone No, Physician Primary Care Provider [phone] Reason for Visit * Reason Onset Date Comments Test Results 06/20/2018 Encounter Details Date Type Department Care Team (Late st Contact Info) Description 06/20/2018 [facility] [address] [place] [address] Maurice Gonzalez, RN Test Results Social History Tobacco Use Types Packs/Day Years Used Date Smoking Tobacco: Never Alcohol Use Standard Drinks/Week Comments Yes 0 (1 standard drink = 0.6 oz pur e alcohol) Comments No Sex and Gender Information Value Date Recorded Sex Assigned at Not on file Legal Sex Female 9:07 PM ANGLESMITH HELPER Gender Identity Not on file Sexual Orientation Not on file documented as of this encounter Ordered Prescriptions Prescription Sig Dispense Quantity Refills Last Filled Start Date End Date norgestimate-ethin yl estradiol (ORTHO-CYCLEN) 0.25-35 mg-mcg per tablet Take 1 tablet by mouth daily. 28 tablet 12 06/20/2018 09/07/2023 documented in this encounter Miscellaneous Notes * Addendum Note - Maurice Gonzalez RN - 06/20/2018 1:24 PM CSTAddended by: MAURICE GONZALEZ on: 06/20/2018 01:24 PM Modules accepted: Orders ESMITH HELPER * Telephone Encounter - Maurice Gonzalez RN - 06/20/2018 1:23 PM CST Patient aware. erx Sprintec to [facility]. ESMITH HELPER ESMITH HELPER * Telephone Encounter - Maurice Gonzalez RN - 06/20/2018 9:12 AM CST Left message on patient's voicemail to call back. ESMITH HELPER * Telephone Encounter - Maurice Gonzalez RN - 06/20/2018 9:11 AM CST ----- Message from Sana Henry MD sent at 06/18/2018 12:33 PM ANGLESMITH HELPER ----- Please let her know that her labs were normal except for elevated testosterone. Her ultrasound alsowas normal except for polycystic ovaries. Both of these and the irregular period confirms the diagnosis of PCOS. Her lining actually did not appear too thickened which is good. I recommend she restart control pills during the time she is not trying for . This will help regulate her pe riods as well as her hormones. The control pill can also help bind the extra testosterone to lower it which may help re-regulate her periods when she does stop the periods to try for another . Should send in sprintec for her to start now. ESMITH HELPER documented in this encounter Plan of Treatment Not on file documented as of this encounter Visit Diagnoses Not on filedocumented in this encounter Care Teams Drupal Php Developer Relationship Specialty Start Date End Date No, Physician PCP - General 05/25/18 04/13/23 documented as of this encounter
--- OUTSIDE RECORDS SUMMARY | 2024-08-06 00:50 | XMS_ITS | Encounter Summary ---
Author Organization [facility] Facility Care Team Providers Care Parts Room Assistant Name Role Phone Unavailable Primary Care Provider Unavailabl e Encounter Details Date Type Department Care Team (Late st Contact Info) Description 09/11/2015 6:03 PM EDUCATIONAL THERAPIST - 09/11/2015 11:59 PM EDUCATIONAL THERAPIST Hospital Encounter [facility] Sana Henry MD [address] [place] [address] Encounter for screening for infections with predominantly sexual mode of transmission Social History Tobacco Use Types Packs/Day Years Used Date Smoking Tobacco: Never Alcohol Use Standard Drinks/Week Comments Yes 0 (1 standard drink = 0.6 oz pur e alcohol) Comments Unknown Sex and Gender Information Value Date Recorded Sex Assigned at Not on file Legal Sex Female 9:07 PM EDUCATIONAL THERAPIST Gender Identity Not on file Sexual Orientation Not on file documented as of this encounter Plan of Treatment Not on file documented as of this encounter Procedures Procedure Name Priority Date/Time Associated Diagnosis Comments GENITAL FLUID CHLAMYDIA, GONORRHEA DNA Routine 09/11/2015 12:49 PM EDUCATIONAL THERAPIST DISCHARGE LABORATORY CUMULATIVE REPORT 09/11/2015 documented in this encounter Results * Genital fluid Chlamydia, Gonorrhea DNA (09/11/2015 12:49 PM EDUCATIONAL THERAPIST) Chlamydia trachomatis, PCR, genital swab Not Detected NotDetected HISTORICAL RESULTS Gonorrheae (GC) DNA, genital swab Not Detected NotDetected HISTORICAL RESULTS Genital 09/11/2015 12:4 9 PM EDUCATIONAL THERAPIST us Sana Henry MD LAB BLOOD ORDERABLES F inal Result HISTORICAL RESULTS * DISCHARGE LABORATORY CUMULATIVE REPORT (09/11/2015) Narrative 09/11/2015 Ordered by an unspecified provider. Historical Provider LAB BLOOD ORDERABLES Maryellen l Result documented in this encounter Visit Diagnoses Diagnosis Encounter for screening for infections with predominantly sexual mode of transmission documented in this encounter
--- OUTSIDE RECORDS SUMMARY | 2024-08-06 00:50 | XMS_ITS | Encounter Summary ---
Author Organization [facility] Facility Care Team Providers Care Spares Scheduler Name Role Phone Unavailable Primary Care Provider Unavailabl e Encounter Details Date Type Department Care Team (Late st Contact Info) Description 02/29/2016 5:51 PM CDT - 02/29/2016 11:59 PM CDT Hospital Encounter [facility] Sana Henry MD [address] [place] [address] Twin Social History Tobacco Use Types Packs/Day Years Used Date Smoking Tobacco: Never Alcohol Use Standard Drinks/Week Comments Yes 0 (1 standard drink = 0.6 oz pur e alcohol) Comments Unknown Sex and Gender Information Value Date Recorded Sex Assigned at Not on file 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
--- OUTSIDE RECORDS SUMMARY | 2024-08-06 00:50 | XMS_ITS | Encounter Summary ---
Author Organization [facility] Facility Care Team Providers Care Technology Integration Specialist Name Role Phone Unavailable Primary Care Provider Unavailabl e Encounter Details Date Type Department Care Team (Late st Contact Info) Description 04/28/2015 4:30 PM CDT - 04/28/2015 11:59 PM CDT Hospital Encounter 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 us Historical Provider LAB CYTOLOGY ORDERABLES F inal Result documented in this encounter Visit Diagnoses Diagnosis Encounter for gynecological examination without abnormal finding Encounter for screening for human papillomavirus (HPV) documented in this encounter
--- OUTSIDE RECORDS SUMMARY | 2024-08-06 00:50 | XMS_ITS | Encounter Summary ---
Author Organization [facility] Facility Care Team Providers Care Potato Pancake Frier Name Role Phone Unavailable Primary Care Provider Unavailabl e Encounter Details Date Type Department Care Team (Late st Contact Info) Description 12/25/2015 2:36 PM CDT - 12/25/2015 11:59 PM CDT Hospital Encounter [facility] Sana Henry MD [address] [place] [address] Encounter for screening of mother; Weeks of gestation of not specified Social History Tobacco Use Types Packs/Day Years Used Date Smoking Tobacco: Never Alcohol Use Standard Drinks/Week Comments Yes 0 (1 standard drink = 0.6 oz pur e alcohol) Comments Unknown Sex and Gender Information Value Date Recorded Sex Assigned at Not on file 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
--- OUTSIDE RECORDS SUMMARY | 2024-08-06 00:50 | XMS_ITS | Encounter Summary ---
Author Organization [facility] Facility Care Team Providers Care Computer Scientist Name Role Phone Unavailable Primary Care Provider Unavailabl e Encounter Details Date Type Department Care Team (Late st Contact Info) Description 09/14/2015 3:05 PM CARE PROGRAM DIRECTOR - 09/14/2015 11:59 PM CARE PROGRAM DIRECTOR Hospital Encounter [facility] CLINCON[facility] Sana Henry MD [address] [place] [address] Amenorrhea Social History Tobacco Use Types Packs/Day Years Used Date Smoking Tobacco: Never Alcohol Use Standard Drinks/Week Comments Yes 0 (1 standard drink = 0.6 oz pur e alcohol) Comments Unknown Sex and Gender Information Value Date Recorded Sex Assigned at Not on file Legal Sex Female 9:07 PM CARE PROGRAM DIRECTOR Gender Identity Not on file Sexual Orientation Not on file documented as of this encounter Plan of Treatment Not on file documented as of this encounter Procedures Procedure Name Priority Date/Time Associated Diagnosis Comments SERUM PROGESTERONE Routine 09/14/2015 3: 07 PM CARE PROGRAM DIRECTOR PLASMA CHORIONIC GONADOTROPIN (HCG), QUANTITATIVE Routine 09/14/2015 3:07 PM CARE PROGRAM DIRECTOR DISCHARGE LABORATORY CUMULATIVE REPORT 09/14/2015 documented in this encounter Results * Serum progesterone (09/14/2015 3:07 PM CARE PROGRAM DIRECTOR) Progesterone 9.2 ng/ml HISTORI JOAQUINA RESULTS Comment: Progesterone Reference Ranges: Males: ??0.14 - 2.06 ng/mL Females: ?? Mid-follicular: 0.3 - 1.5 ng/mL Mid-luteal: 5.2 - 18.6 ng/mL Post-menopausal: ??<0.8 ng/mL : First trimester: ??4.7 - 50.7 ng/mL Second trimester: ??19.4 - 45.3 ng/mL Serum 09/14/2015 3:07 PM CARE PROGRAM DIRECTOR Result [facility] Sana Henry MD LAB BLOOD ORDERABLES F inal Result Performing Organization Address City/[facility] Co de Phone Number HISTORICAL RESULTS * (ABNORMAL) Plasma chorionic gonadotropin (HCG), quantitative (09/14/2015 3:07 PM CARE PROGRAM DIRECTOR) HCG, quant 5882.0(H) 0.0 - 5.0 IUnits/L HISTORICAL RESULTS Comment: Effective March 14, 2014, the B-hCG assay is being offered with new methodology without affecting the normal reference range. No guidelines are available for gestational age related reference ranges. ??Please monitor B-hCG values with serial testing. Plasma 09/14/2015 3:07 PM CARE PROGRAM DIRECTOR Result [facility] Sana Henry MD LAB BLOOD ORDERABLES F inal Result Performing Organization Address [facility] Co de Phone Number HISTORICAL RESULTS * DISCHARGE LABORATORY CUMULATIVE REPORT (09/14/2015) Narrative 09/14/2015 Ordered by an unspecified provider. Historical Provider LAB BLOOD ORDERABLES Maryellen l Result documented in this encounter Visit Diagnoses Diagnosis Amenorrhea Absence of menstruation documented in this encounter
== END 2024-07-30 08:53 | disposition home or self-care (01) ==
PROVIDERS: PCP Registered Nurse; Visit Provider Registered Nurse
DX: R76.8 Other specified abnormal immunological findings in serum (principal); Z82.61 Family history of arthritis
CPT/HCPCS: 36415; 86235; 86430